=== PATIENT | female | born 2000 | race Two or more races ===

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

== ENCOUNTER 2021-01-23 14:19 | Outpatient (REF) | payer OTHER, SELFPAY | END 2021-01-23 14:20 | disposition home or self-care (01) | LOC: HO.LAB 14:19 | PROVIDERS: Visit Provider Internal Medicine | DX: Z20.822 Contact with and (suspected) exposure to COVID-19 (principal) | CPT/HCPCS: 36415; C9803; U0003; U0005 ==

== ENCOUNTER 2021-03-25 06:01 | Emergency (ER) | payer OTHER, SELFPAY ==
--- NOTE | ~2021-03-25 | CT_ITS ---
EXAMINATION: CT ABDOMEN AND PELVIS WITHOUT CONTRAST CLINICAL INFORMATION: Right-sided abdominal pain and vomiting COMPARISON: None TECHNIQUE: Multidetector volumetric imaging was performed from the superior aspect of the liver through the pubic symphysis. Sagittal and coronal reformatted images were obtained on the technologist's workstation. This CT examination was performed using dose optimization techniques as appropriate, variously including the following: *Automated exposure control *Adjustment of mA and/or kV according to patient size (this includes techniques or standardized protocols for targeted exams where dose is matched to indication/reason for exam; i.e. extremities or head) *Use of iterative reconstruction technique DLP: 1265 mGy-cm FINDINGS: LUNG BASES: The visualized lung bases are unremarkable. LIVER, GALLBLADDER, AND BILIARY TREE: The liver is normal in size, shape, and attenuation. No focal hepatic lesion or biliary ductal dilatation is present. The gallbladder is unremarkable with no evidence of radiopaque gallstones, gallbladder wall thickening, or obvious pericholecystic inflammatory changes. PANCREAS: Unremarkable. SPLEEN: Unremarkable. ADRENAL GLANDS: Unremarkable. KIDNEYS AND URETERS: There are several right upper pole renal stones, largest measuring 2 mm. No hydronephrosis, ureteral dilatation or ureteral stone is seen. The left kidney is normal appearing. BLADDER: Unremarkable. GASTROINTESTINAL TRACT: The gallbladder has been removed. There is diverticulosis of the colon. No evidence of diverticulitis is seen. The small and large bowel is otherwise unremarkable. The stomach is unremarkable. ABDOMINAL WALL: There is a small umbilical hernia containing fat. LYMPH NODES: Normal. VASCULAR: Unremarkable. PELVIC VISCERA: Unremarkable. OSSEOUS STRUCTURES: Unremarkable. CT/CT abdomen pelvis wo con IMPRESSION: Small nonobstructing right renal stones.
[2021-03-25 06:37] VITALS: BP 137/65; PULSE 68; RESP 16; TEMP 36.2; O2SAT 99
[2021-03-25 06:38] VITALS: BMI 56.7
[2021-03-25 06:43] VITALS: BMI 58.6
--- NOTE | 2021-03-25 06:50 | ED_ITS ---
HPI - Abdominal Pain General Chief Complaint: Abdominal Pain Stated Complaint: abdominal pain and vomiting Time Seen by Provider: 03/25/21 06:42 Source: patient Mode of arrival: ambulatory Limitations: no limitations History of Present Illness HPI narrative: 21 years old female came to the emergency department for e valuation of abdominal pain. Abdominal pain started this morning when she woke up from sleep, pain is localized to the right side of the abdomen, pain was described as moderate constant pain 5/10, dull, pain is not radiating, nothing aggravated the pain or made it worse in particular food, nothing makes the pain better, never had this pain in the past, patient had history of appendectomy, symptoms also associated with intermittent feeling dizziness and lightheadedness, hot flashes and blurry vision. Patient reportedly she is not diabetic sugar was checked in the emergency department was 110. Patient declined urinary symptoms no dysuria, no frequency, no fever, no chills. Last bowel movement was yesterday with normal. No vaginal bleeding, no vaginal discharge patient is diagnosed with herpes genitalis and taking medicine for it. Related Data Previous Rx's Medication Instructions Recorded cephalexin [Keflex] 500 mg PO QID #20 cap 09/17/20 cefuroxime axetil 500 mg PO BID #20 tab 03/25/21 Allergies Allergy/AdvReac Type Severity Reaction Status Date / Time No Known Allergies Allergy Unverified 03/25/21 06:47 Review of Systems Review of Systems All other systems are reviewed and are negative Constitutional: Reports as per HPI and Reports no additional constitutional complaints Eyes: Reports as per HPI and Reports no additional eye complaints Reports system reviewed and no additional complaints, except as documented Cardiovascular: Reports as per HPI and Reports no additional cardiovascular complaints Respiratory: Reports as per HPI and Reports no additional respiratory complaints Gastrointestinal: Reports as per HPI and Reports no additional gastrointestinal complaints Genitourinary: Reports no additional female genitourinary complaints Musculoskeletal: Reports no additional musculoskeletal complaints Skin/Breast: Reports system reviewed and no additional complaints, except as docu Psychiatric: Reports no additional psychiatric complaints Endocrine: Reports no additional endocrine complaints Hematologic/Lymphatic: Reports no additional hematologic/lymphatic complaints Allergic/Immunologic: Reports no additional allergic/immunologic complaints Reports system reviewed and no additional complaints, except as documented and Reports Abnormal speech present Physical Exam Vital Signs: Vital Signs: Last Vital Signs Temp 97.1 F 05/17/21 08:11 Pulse 68 03/25/21 08:11 Resp 16 03/25/21 08:11 BP 137/65 03/25/21 08:11 Pulse Ox 99 03/25/21 06:37 Body Mass Index 58.6 Vital signs have been reviewed as appeared to be correct. Blood pressure normal. Heart rate normal. Respiration rate normal. Temperature normal. Oxygen saturation normal. Appearance: Alert. Oriented X3. No acute distress. Head: Normal external exam. Normocephalic. Atraumatic. No Carrizales signs noted. No raccoon eyes noted Eyes: PERRLA. EOMI. Conjunctiva and sclera normal. Eyelids normal. ENT: TM's Normal. Pharynx normal. Uvula midline. Moist mucous membranes. No trismus noted. No drooling noted. No muffled voice noted. Neck: Normal inspection. Neck supple. FROM. No adenopathy. Thyroid Normal. No meningeal signs. No neck mass noted. CVS: Normal heart rate and rhythm. Heart sound normal. No murmurs noted. Pulses normal throughout. Respiratory: No respiratory distress. Painless inspiration. Breath sounds normal. No wheezes/rales/rhonchi noted. Chest nontender. No accessory muscle usage noted or decreased air movement noted. Abdomen: Soft, obese, mild right sided tenderness with no rebound tenderness, no guarding.. Bowel sounds normal in all 4 quadrants. No distention noted. No organomegaly noted. No visible injury noted. Back: No CVA tenderness. Full range of motion noted. Skin: Skin warm and dry. Normal skin color. Normal skin turgor. No rashes/lesions/lacerations noted. Extremities: No lower extremity edema. Extremities exhibit normal range of motion. Extremities nontender. Neuro: Oriented X 3. No motor deficit. No sensory deficit. Reflexes normal. Course Course Course Narrative: Assessment and plan. 21-year-old came in with right upper abdominal pain/right flank pain, patient showed a mild urinary tract infection and a UA, CT is consistent with small kidney stones, patient feels better now, UA showing rbc's 10-14 high power field the above finding are consistent with recently passed stone. Will start the patient on cefuroxime antibiotic for 7 days and patient was instructed to drink plenty of fluids. MDM - Abdominal Pain Lab Data Attestation: I reviewed the patient's lab results. Result diagrams: 03/25/21 07:06 03/25/21 08:06 Labs: Lab Results 03/25/21 03/25/21 03/25/21 Range/Units 06:46 07:06 07:06 WBC 9.7 (4.8-10.8) X10*3/uL RBC 4.82 (4.20-5.50) X10*6/uL Hgb 13.5 (12.0-16.0) g/dl Hct 42.0 (37-47) % MCV 87.1 (80-98) fL MCH 28.0 (27.0-33.0) pg MCHC 32.1 (31.0-35.0) g/dl RDW 13.9 (11.0-16.0) % Plt Count 417 H (160-400) X10*3/uL MPV 10.7 (9.4-12.3) fL Immature Gran % (Auto) 0.4 (0.0-0.4) % Neut % (Auto) 70.2 (45-73) % Lymph % (Auto) 22.6 (20-40) % Josephine % (Auto) 5.7 (2-11) % Eos % (Auto) 0.7 (0-4) % Baso % (Auto) 0.4 (0-2) % Lymph # (Auto) 2.2 (1.2-4.9) X10*3/uL Josephine # (Auto) 0.6 (0.1-1.2) X10*3/uL Eos # (Auto) 0.1 (0.0-0.4) X10*3/uL Baso # (Auto) 0.0 (0.0-0.2) X10*3/uL Abs Immat Gran (auto) 0.04 H (0.00-0.03) X10*3/uL Absolute Neuts (auto) 6.8 (2.0-8.3) X10*3/uL Absolute Nucleated RBC 0.000 (0.0-0.012) X10*3/uL Nucleated RBC % (auto) 0.0 (0.0-0.2) /100WBC Sodium (135-145) mmol/L Potassium (3.3-5.1) mmol/L Chloride (96-108) mmol/L Carbon Dioxide (22-29) mmol/L Anion Gap (12-20) BUN (9-16) mg/dL Creatinine (0.5-1.4) mg/dL Estim Creat Clear Calc Estimated GFR POC Glucose 110 (60-115) mg/dL Random Glucose (60-115) mg/dL Calcium (8.4-10.2) mg/dL Total Bilirubin (0.0-1.0) mg/dL Direct Bilirubin (0.0-0.5) mg/dL AST (5-31) U/L ALT (0-31) U/L Alkaline Phosphatase (39-117) U/L Total Protein (6.5-8.0) g/dL Albumin (3.5-5.0) g/dL Lipase (8-78) U/L Urine Color YELLOW Urine Appearance HAZY Urine pH 6.0 (5.0-8.0) Ur Specific [place] >= 1.030 H (1.005-1.025) Urine Protein TRACE (NEG-TRACE) MG/DL Urine Glucose (UA) NEG (NEG) MG/DL Urine Ketones NEG (NEG) MG/DL Urine Blood 3+ H (NEG) Urine Nitrite NEG (NEG) Ur Leukocyte Esterase 2+ H (NEG) Urine RBC 10-14 H (0) /HPF Urine WBC 15-29 H (0-4) /HPF Ur Squamous Epith Cells 1+ /LPF Urine Bacteria NONE /LPF Urine Mucus 3+ /LPF Urine Test (NEGATIVE) 03/25/21 03/25/21 Range/Units 07:06 08:06 WBC (4.8-10.8) X10*3/uL RBC (4.20-5.50) X10*6/uL Hgb (12.0-16.0) g/dl Hct (37-47) % MCV (80-98) fL MCH (27.0-33.0) pg MCHC (31.0-35.0) g/dl RDW (11.0-16.0) % Plt Count (160-400) X10*3/uL MPV (9.4-12.3) fL Immature Gran % (Auto) (0.0-0.4) % Neut % (Auto) (45-73) % Lymph % (Auto) (20-40) % Josephine % (Auto) (2-11) % Eos % (Auto) (0-4) % Baso % (Auto) (0-2) % Lymph # (Auto) (1.2-4.9) X10*3/uL Josephine # (Auto) (0.1-1.2) X10*3/uL Eos # (Auto) (0.0-0.4) X10*3/uL Baso # (Auto) (0.0-0.2) X10*3/uL Abs Immat Gran (auto) (0.00-0.03) X10*3/uL Absolute Neuts (auto) (2.0-8.3) X10*3/uL Absolute Nucleated RBC (0.0-0.012) X10*3/uL Nucleated RBC % (auto) (0.0-0.2) /100WBC Sodium 142 (135-145) mmol/L Potassium 4.1 (3.3-5.1) mmol/L Chloride 111 H (96-108) mmol/L Carbon Dioxide 21 L (22-29) mmol/L Anion Gap 14 (12-20) BUN 6 L (9-16) mg/dL Creatinine 0.60 (0.5-1.4) mg/dL Estim Creat Clear Calc 185.4 Estimated GFR > 60 POC Glucose (60-115) mg/dL Random Glucose 100 (60-115) mg/dL Calcium 8.9 (8.4-10.2) mg/dL Total Bilirubin 0.5 (0.0-1.0) mg/dL Direct Bilirubin 0.2 (0.0-0.5) mg/dL AST 15 (5-31) U/L ALT 16 (0-31) U/L Alkaline Phosphatase 72 (39-117) U/L Total Protein 7.0 (6.5-8.0) g/dL Albumin 4.2 (3.5-5.0) g/dL Lipase 31 (8-78) U/L Urine Color Urine Appearance Urine pH (5.0-8.0) Ur Specific [place] (1.005-1.025) Urine Protein (NEG-TRACE) MG/DL Urine Glucose (UA) (NEG) MG/DL Urine Ketones (NEG) MG/DL Urine Blood (NEG) Urine Nitrite (NEG) Ur Leukocyte Esterase (NEG) Urine RBC (0) /HPF Urine WBC (0-4) /HPF Ur Squamous Epith Cells /LPF Urine Bacteria /LPF Urine Mucus /LPF Urine Test NEGATIVE (NEGATIVE) Imaging Data CT scan - abdomen: Radiologist's impression: LUNG BASES: The visualized lung bases are unremarkable. LIVER, GALLBLADDER, AND BILIARY TREE: The liver is normal in size, shape, and attenuation. No focal hepatic lesion or biliary ductal dilatation is present. The gallbladder is unremarkable with no evidence of radiopaque gallstones, gallbladder wall thickening, or obvious pericholecystic inflammatory changes. PANCREAS: Unremarkable. SPLEEN: Unremarkable. ADRENAL GLANDS: Unremarkable. KIDNEYS AND URETERS: There are several right upper pole renal stones, largest measuring 2 mm. No hydronephrosis, ureteral dilatation or ureteral stone is seen. The left kidney is normal appearing. BLADDER: Unremarkable. GASTROINTESTINAL TRACT: The gallbladder has been removed. There is diverticulosis of the colon. No evidence of diverticulitis is seen. The small and large bowel is otherwise unremarkable. The stomach is unremarkable. ABDOMINAL WALL: There is a small umbilical hernia containing fat. LYMPH NODES: Normal. VASCULAR: Unremarkable. PELVIC VISCERA: Unremarkable. OSSEOUS STRUCTURES: Unremarkable. Discharge Plan Discharge Clinical Impression: Calculus of kidney Urinary tract infection Qualifiers: Urinary tract infection type: acute cystitis Hematuria presence: without hematuria Qualified Code(s): N30.00 - Acute cystitis without hematuria Patient Disposition: Home, Self-Care Instructions: Urinary Tract Infection in Women (ED) Prescriptions: New cefuroxime axetil 500 mg tablet 500 mg PO BID Qty: 20 RF: 0 No Action cephalexin [Keflex] 500 mg capsule 500 mg PO QID Qty: 20 RF: 0 Referrals: Physician,None [Primary Care Provider] - 2 days REPLACED BY [facility] Past Medical History Medical History Epilepsy Social History Social History Alcohol intake: never Smoking Status: Never smoker Advance Directives: No Advance Directives Information Provided: No Patient : Yes
[2021-03-25 06:51] LABS: Glucose, Whole Blood 110 mg/dL (60-115)
[2021-03-25] MEDS: Morphine Sulfate 2 MG/ML CARTRIDGE IVPUSH (07:11)
[2021-03-25] MEDS: ondansetron HCL 4 MG/2 ML VIAL IVPUSH (07:11)
[2021-03-25] MEDS: Ketorolac Tromethamine 15 MG/ML VIAL IV (07:11)
[2021-03-25] MEDS: 0.9 % Sodium Chloride 1,000 ML 999 ML IVCONT (07:11)
[2021-03-25 07:13] LABS: MANUAL DIFF FLAG NO
[2021-03-25 07:17] LABS: Basophils Percent Auto 0.4 % (0-2); Eosinophils Absolute Auto 0.1 X10*3/uL (0.0-0.4); Eosinophils Percent Auto 0.7 % (0-4); Hemoglobin 13.5 g/dl (12.0-16.0); Imm Gran Abs Auto 0.04 X10*3/uL (0.00-0.03); Imm Gran Pct Auto 0.4 % (0.0-0.4); Lymphocytes Absolute Auto 2.2 X10*3/uL (1.2-4.9); Lymphocytes Percent Auto 22.6 % (20-40); Mean Corpuscular HGB Conc 32.1 g/dl (31.0-35.0); Mean Corpuscular Volume 87.1 fL (80-98); Mean Platelet Volume 10.7 fL (9.4-12.3); Monocytes Absolute Auto 0.6 X10*3/uL (0.1-1.2); Monocytes Percent Auto 5.7 % (2-11); Neutrophils Absolute Auto 6.8 X10*3/uL (2.0-8.3); Neutrophils Percent Auto 70.2 % (45-73); Platelet Count 417 X10*3/uL (160-400); Red Blood Count 4.82 X10*6/uL (4.20-5.50); Red Cell Distribution Width 13.9 % (11.0-16.0); White Blood Count 9.7 X10*3/uL (4.8-10.8)
[2021-03-25 07:20] LABS: Glucose Urine UA NEG (NEG); Leukocyte Esterase Urine 2+ (NEG); Nitrite Urine NEG (NEG); Specific Gravity - Urine >= 1.030 (1.005-1.025); UACC Culture Trigger YES; UPreg QC Valid YES; Urine Blood 3+ (NEG); Urine Ketones NEG (NEG); Urine Pregnancy NEGATIVE (NEGATIVE); Urine Protein TRACE MG/DL (NEG-TRACE)
[2021-03-25 07:23] LABS: Appearance Urine HAZY; Color Urine YELLOW
[2021-03-25 07:35] LABS: Mucus Urine 3+ /LPF; Squamous Epithelial Cell Urine 1+ /LPF
[2021-03-25 08:11] VITALS: BP 137/65; PULSE 68; RESP 16; TEMP 36.2
[2021-03-25 08:46] LABS: Alanine Aminotransferase 16 U/L (0-31); Albumin Level 4.2 g/dL (3.5-5.0); Alkaline Phosphatase 72 U/L (39-117); Anion Gap 14 (12-20); Aspartate Amino Transferase 15 U/L (5-31); Bilirubin Direct 0.2 mg/dL (0.0-0.5); Bilirubin Total 0.5 mg/dL (0.0-1.0); Blood Urea Nitrogen 6 mg/dL (9-16); Calcium 8.9 mg/dL (8.4-10.2); Carbon Dioxide 21 mmol/L (22-29); Chloride 111 mmol/L (96-108); Creatinine Clr Calc Pharmacy 185.4; Estimated Glomerular Filt Rate > 60; Glucose Random 100 mg/dL (60-115); Lipase 31 U/L (8-78); Potassium 4.1 mmol/L (3.3-5.1); Sodium 142 mmol/L (135-145)
== END 2021-03-25 10:06 | disposition home or self-care (01) ==
PROVIDERS: Emergency Provider Emergency Medicine
DX: N30.00 Acute cystitis without hematuria (principal); N20.0 Calculus of kidney; R10.11 Right upper quadrant pain; K42.9 Umbilical hernia without obstruction or gangrene; K57.30 Diverticulosis of large intestine without perforation or abscess without bleeding; Z90.49 Acquired absence of other specified parts of digestive tract
CPT/HCPCS: 36415; 74176; 80048; 80076; 81001; 81003; 81025; 82947; 83690; 85025; 87086; 96361; 96374; 96375; 99284; J1885; J2270; J2405

== ENCOUNTER 2021-04-07 09:04 | Emergency (ER) | payer OTHER, SELFPAY ==
[2021-04-07 09:52] VITALS: BP 132/86; PULSE 74; RESP 16; TEMP 36.6; O2SAT 99; BMI 58.6
[2021-04-07 10:16] LABS: Glucose Urine UA NEG (NEG); Leukocyte Esterase Urine 2+ (NEG); Nitrite Urine NEG (NEG); Specific Gravity - Urine 1.015 (1.005-1.025); UACC Culture Trigger YES; Urine Blood 3+ (NEG); Urine Ketones NEG (NEG); Urine Protein TRACE MG/DL (NEG-TRACE)
[2021-04-07 10:17] LABS: Appearance Urine CLOUDY; Color Urine YELLOW
[2021-04-07 10:19] LABS: UPreg QC Valid YES; Urine Pregnancy NEGATIVE (NEGATIVE)
[2021-04-07 10:28] LABS: Amorphous Sediment Urine 1+ /LPF; Bacteria Urine 2+ /LPF; Squamous Epithelial Cell Urine 2+ /LPF
[2021-04-07] MEDS: cefTRIAXone sodium 500 MG, Lidocaine HCl 1 % MPF 1 ML IM (11:45)
--- NOTE | 2021-04-07 11:45 | ED.FEMALEGU ---
HPI - Female Genitourinary General Chief complaint: Urogenital-Female Stated complaint: lower back and abd pain prev kidney infection Time Seen by Provider: 04/07/21 11:09 Source: patient Mode of arrival: ambulatory Limitations: no limitations History of Present Illness HPI Narrative: 21-year-old female who presents emergency department for evaluation of lower abdominal pain. The patient states that she has been having pain across her lower abdomen since 03/25/2021. She states the pain is a constant pressure-like pain which waxes and wanes in intensity. She states the pain is 9/10 at its worst. She has noted a thick vaginal discharge which is new. She has had chills but no fever. Denied nausea, vomiting, frequency, urgency or dysuria. She has noted a vaginal discharge. The patient was evaluated in the emergency department on 03/25/2021 for similar symptoms. She had a CT scan which revealed kidney stones but no obstructing stone. Her urinalysis revealed 10-14 RBCs and 15-29 WBCs with 2+ bacteria. She was treated with cefuroxime for possible urinary tract infection. Her urine culture came back mixed aby. The patient states she is sexually active with 1 sexual partner. Related Data Previous Rx's Medication Instructions Recorded cephalexin [Keflex] 500 mg PO QID #20 cap 09/17/20 cefuroxime axetil 500 mg PO BID #20 tab 03/25/21 doxycycline hyclate 100 mg PO Q12H 10 Days #20 tab 04/07/21 metronidazole [Flagyl] 500 mg PO BID 10 Days #20 tab 04/07/21 Allergies Allergy/AdvReac Type Severity Reaction Status Date / Time No Known Allergies Allergy Unverified 03/25/21 06:47 Review of Systems Review of Systems: Yes all other systems are reviewed and are negative [facility] Past Medical History [facility] Narrative: Past medical history: intermittent hypertension not treated with medication, seizure disorder, irregular heart rate and migraines. Surgical history: Appendectomy. Social history: The patient denies tobacco use, she states she drinks alcohol occasionally, she denies drug use. Medical History Epilepsy Social History Social History Alcohol intake: never Advance Directives: Yes Advance Directives Information Provided: Yes Advance Directives on File: No Physical Exam Vital Signs: Vital Signs: Last Vital Signs Temp 97.8 F 04/07/21 09:52 Pulse 74 04/07/21 09:52 Resp 16 04/07/21 09:52 BP 132/86 04/07/21 09:52 Pulse Ox 99 04/07/21 09:52 Body Mass Index 58.6 Const: General: cooperative and healthy appearing Orientation/consciousness: oriented to person and oriented to place Limitations: no limitations HENMT: Head: Yes normal to inspection, Yes normocephalic and Yes atraumatic Ears: external ears normal General nose exam: Normal external nose present Face and sinus: Yes normal facial exam Mouth: Normal oral and palatal mucosa present Throat: Yes posterior oropharynx normal Eyes: Periorbital: periorbital findings normal Eyelids: Yes eyelids normal Conjunctivae: conjunctivae normal Sclerae: sclerae normal Corneas: corneas normal Pupils: Equal, round and reactive pupils present Direct Ophthalmoscopy: normal light reflex Neck: Neck: Yes full ROM, Yes no lymphadenopathy, Yes no meningeal signs, Yes trachea midline and Yes supple Chest: Chest palpation & inspection: normal inspection of the chest and normal palpation of entire chest wall Resp: Effort & Inspection: normal respiratory effort and able to speak in complete sentences Auscultation: clear to auscultation bilaterally Cardio: Rate: regular rate Rhythm: regular rhythm Heart sounds: S1 normal heart sound present, S2 normal heart sound present and no murmurs GI: Inspection: Yes normal to inspection Palpation (GI): Soft to palpation, Tenderness to palpation present (GI) suprapubicly (Moderate), no guarding, not rigid and No hepatosplenomegaly present : General: Yes CVA tenderness (Bilateral, left greater than right) Back/Spine/Pelvis: Back: CVA tenderness (Bilateral, left greater than right) Cervical Spine: normal cervical lordosis Thoracic/Lumbar Spine: thoracic and lumbar spine normal to inspection Skin: Lesions: no lesions Rashes: no rashes Wounds: no wounds Neuro: General: oriented to person, oriented to place and no meningeal signs Cranial nerves: Yes CN's II-XII intact bilaterally and Yes Equal, round and reactive pupils present Cognition (Neuro): normal cognition Motor exam (neuro): 5/5 motor strength present throughout Extrem: General: Yes normal to inspection and Yes full ROM Psych: Appearance: well kempt Mental Status: mental status grossly normal Speech and movement: Normal speech and movement present Affect: normal affect Attitude: cooperative Thought process: Normal thought process present Thought content: Normal thought content present Course Course Course Narrative: 21-year-old female who presents emergency department for evaluation of abdominal pain since 03/25/2021. She was evaluated in the emergency department at that time and treated with cefuroxime for urinary tract infection with no improvement of her symptoms. Patient's urine culture from that visit grew mixed aby. The patient has noted a vaginal discharge. Physical examination did reveal lower abdominal tenderness and CVA tenderness. Laboratory evaluation revealed a normal CBC and CMP. Lipase was not elevated. Urinalysis was similar to the previous urinalysis with 3+ blood, 2+ leukocyte esterase. Microscopic revealed 10-14 red blood cells 15-29 white blood cells, 2+ squamous cells, 2+ bacteria. Urine test was negative. Given her negative urine culture the previous visit, I suspect that she has felt inflammatory disease as the cause for symptoms. I did discuss pelvic exam with patient and she deferred the pelvic exam at this time, I will check a gonorrhea and chlamydia from the patient's urine. Patient was given ceftriaxone with lidocaine 500 mg IM. She will be treated for PID with doxycycline 100 mg twice a day for 10 days and Flagyl 500 mg twice a day for 10 days. She was advised to follow-up with her packer dried beef in 10 days to make sure that her symptoms are improved. I did tell her that she needs to check her gonorrhea and chlamydia results and if these tests are positive then her sexual partner needs to be treated. MDM - Female Genitourinary Lab Data Labs: Lab Results 04/07/21 04/07/21 Range/Units 10:06 10:06 Urine Color YELLOW Urine Appearance CLOUDY Urine pH 7.0 (5.0-8.0) Ur Specific [place] 1.015 (1.005-1.025) Urine Protein TRACE (NEG-TRACE) MG/DL Urine Glucose (UA) NEG (NEG) MG/DL Urine Ketones NEG (NEG) MG/DL Urine Blood 3+ H (NEG) Urine Nitrite NEG (NEG) Ur Leukocyte Esterase 2+ H (NEG) Urine RBC 10-14 H (0) /HPF Urine WBC 15-29 H (0-4) /HPF Ur Squamous Epith Cells 2+ /LPF Amorphous Sediment 1+ /LPF Urine Bacteria 2+ /LPF Urine Test NEGATIVE (NEGATIVE) Discharge Plan Discharge Clinical Impression: Acute pelvic inflammatory disease Patient Disposition: Home, Self-Care Instructions: Pelvic Inflammatory Disease (ED) Additional Instructions: Your presentation and physical findings are consistent with pelvic inflammatory disease (PID). Approximately 30% of the time, pelvic inflammatory disease is caused by sexually transmitted diseases such as Trichomonas, gonorrhea or chlamydia. Approximately 70% of the time, pelvic inflammatory disease is caused by abnormal bacteria (anaerobic bacteria) in your vagina that can cause an infection You received ceftriaxone 500 mg intramuscularly here in the emergency department Take doxycycline 100 mg, 1 pill twice a day for 10 days. Take metronidazole 500 mg, 1 pill twice a day for 10 days. These 3 antibiotics treat sexually transmitted diseases such as gonorrhea, chlamydia and Trichomonas as well as anaerobic bacteria that can cause pelvic inflammatory disease. Take ibuprofen 200 mg pills, 3 pills every 6 hours as needed for pain. Take Tylenol (acetaminophen) 500 mg pills, 2 pills every 4 to 6 hours as needed for pain. Follow-up with your gynecology in 7-10 days. If your packer dried beef cannot see you, [facility] The doctor that follows up will need to review the following results with you: Gonorrhea and chlamydia(urine testing) Please return to the emergency department if your symptoms get worse or if you develop any symptoms that are concerning to you. Prescriptions: New doxycycline hyclate 100 mg tablet 100 mg PO Q12H 10 Days Qty: 20 RF: 0 metronidazole [Flagyl] 500 mg tablet 500 mg PO BID 10 Days Qty: 20 RF: 0 No Action cefuroxime axetil 500 mg tablet 500 mg PO BID Qty: 20 RF: 0 cephalexin [Keflex] 500 mg capsule 500 mg PO QID Qty: 20 RF: 0
[2021-04-07 14:47] LABS: CT PCR DETECTED (Not Detect.); NG PCR DETECTED (Not Detect.)
== END 2021-04-07 12:24 | disposition home or self-care (01) ==
PROVIDERS: Emergency Provider Emergency Medicine Emergency Medical Services
DX: A54.24 Gonococcal female pelvic inflammatory disease (principal); A56.11 Chlamydial female pelvic inflammatory disease; R10.30 Lower abdominal pain, unspecified; N20.0 Calculus of kidney
CPT/HCPCS: 81001; 81003; 81025; 87086; 87147; 87491; 87591; 96372; 99282; 99284; J0696

== ENCOUNTER 2021-05-16 02:12 | Emergency (ER) | payer OTHER, SELFPAY ==
--- NOTE | ~2021-05-16 | CT_ITS ---
EXAMINATION: CT ABDOMEN AND PELVIS WITHOUT CONTRAST CLINICAL INFORMATION: Persistent right flank pain COMPARISON: 03/25/2021 TECHNIQUE: Multidetector volumetric imaging was performed from the superior aspect of the liver through the pubic symphysis. Sagittal and coronal reformatted images were obtained on the technologist's workstation. This CT examination was performed using dose optimization techniques as appropriate, variously including the following: *Automated exposure control *Adjustment of mA and/or kV according to patient size (this includes techniques or standardized protocols for targeted exams where dose is matched to indication/reason for exam; i.e. extremities or head) *Use of iterative reconstruction technique DLP: 1165 mGy-cm FINDINGS: LUNG BASES: The visualized lung bases are unremarkable. LIVER, GALLBLADDER, AND BILIARY TREE: The liver is normal in size, shape, and attenuation. No focal hepatic lesion or biliary ductal dilatation is present. The gallbladder is unremarkable with no evidence of radiopaque gallstones, gallbladder wall thickening, or obvious pericholecystic inflammatory changes. PANCREAS: Unremarkable. SPLEEN: Unremarkable. ADRENAL GLANDS: Unremarkable. KIDNEYS AND URETERS: The kidneys are normal in size, shape, and attenuation. Mild right hydroureteronephrosis. 0.4 cm calculus in the mid ureter at the level of L4. The more distal ureter is decompressed. 0.2 cm right upper pole renal calculus is 12 cm from the posterior axillary line. BLADDER: Unremarkable. GASTROINTESTINAL TRACT: The small and large bowel are unremarkable. The appendix is likely absent. ABDOMINAL WALL: No significant hernia is appreciated. LYMPH NODES: Normal. VASCULAR: Unremarkable. PELVIC VISCERA: The uterus and adnexa are unremarkable. OSSEOUS STRUCTURES: Unremarkable. CT/CT abdomen pelvis wo con IMPRESSION: Mild right hydroureteronephrosis with a 0.4 cm mid ureteral calculus.
[2021-05-16 02:32] VITALS: BP 140/56; PULSE 78; RESP 20; TEMP 35.9; O2SAT 100; BMI 56.5
--- NOTE | 2021-05-16 02:43 | ED.ABDPAIN ---
HPI - Abdominal Pain General Chief Complaint: Abdominal Pain Stated Complaint: lower back pain Time Seen by Provider: 05/16/21 02:40 Source: patient Mode of arrival: ambulatory Limitations: no limitations History of Present Illness HPI narrative: patient was significant past medical history been complaining of pain off and on on the right flank area for last [address] scan done showed normal obstructive right kidney stone for last 2 hours patient noticed pain is getting worse now radiating to the front no urinary symptoms no fever or chills, in ED patient vomited 1 time . Related Data Previous Rx's Medication Instructions Recorded cephalexin [Keflex] 500 mg PO QID #20 cap 09/17/20 cefuroxime axetil 500 mg PO BID #20 tab 03/25/21 doxycycline hyclate 100 mg PO Q12H 10 Days #20 tab 04/07/21 metronidazole [Flagyl] 500 mg PO BID 10 Days #20 tab 04/07/21 Allergies Allergy/AdvReac Type Severity Reaction Status Date / Time No Known Allergies Allergy Unverified 03/25/21 06:47 Review of Systems Review of Systems Constitutional : No Weight loss, No Fever, No Chills ENT/Mouth : No sore throat, No Rhinorrhea Eyes: No Eye Pain, No Swelling Cardiovascular : No Chest Pain, no palpitations Respiratory : No Cough, No Sputum, no shortness of breath Gastrointestinal : +Nausea, +Vomiting, No Diarrhea, No abdominal Pain, no black stools Genitourinary : No Dysuria, No Urinary Frequency Musculoskeletal : No joint pain, No Myalgias, No Joint Swelling Skin : No Skin Lesions, No rash Neuro : No Weakness, No Numbness, No Dizziness, No Headache Psych : No Anxiety/Panic, No Depression Heme/Lymph: No Bruising, No Lymphadenopathy Endocrine : No Polyuria, No Polydipsia All other systems reviewed and are negative Physical Exam Vital Signs: Vital Signs: Last Vital Signs Temp 96.6 F L 05/16/21 02:32 Pulse 78 05/16/21 02:32 Resp 18 05/16/21 05:23 BP 140/56 H 05/16/21 02:32 Pulse Ox 100 05/16/21 02:32 Body Mass Index 56.5 Appearance: Alert. Oriented X3. moderate distress. obese Eyes: PERRLA, No Nystagmus ENT: Pharynx normal. Oral Mucosa moist Neck: Normal inspection. Neck supple. CVS: Normal heart rate and rhythm. Pulses normal. Respiratory: No respiratory distress. Equal air entry bilateral, no wheezing/rales/rhonchi Abdomen: Soft and nontender. Bowel sounds are present, no mass palpable, right CVA tenderness+ back: diffuse tenderness right flank area no focal spinal tenderness Skin: Skin warm and dry. Normal skin color. Normal skin turgor. Extremities: No lower extremity edema. No calf tenderness Neuro: Oriented X 3. No motor deficit. No sensory deficit. MDM - Abdominal Pain MDM Narrative Medical decision making narrative: patient continued to have pain in right flank area vomited 1 time in the ED CT scan done which showed 0.4 cm stone in the upper right ureteric area with mild hydronephrosis. Patient responded to IV pain medication advised follow-up with urologist Medical Records Attestation: I reviewed the patient's medical records. Lab Data Attestation: I reviewed the patient's lab results. Result diagrams: 05/16/21 03:24 05/16/21 03:24 Labs: Lab Results 05/16/21 05/16/21 05/16/21 Range/Units 03:01 03:24 03:24 WBC 11.1 H (4.8-10.8) X10*3/uL RBC 4.76 (4.20-5.50) X10*6/uL Hgb 13.4 (12.0-16.0) g/dl Hct 41.0 (37-47) % MCV 86.1 (80-98) fL MCH 28.2 (27.0-33.0) pg MCHC 32.7 (31.0-35.0) g/dl RDW 13.8 (11.0-16.0) % Plt Count 411 H (160-400) X10*3/uL MPV 10.4 (9.4-12.3) fL Immature Gran % (Auto) 0.4 (0.0-0.4) % Neut % (Auto) 54.1 (45-73) % Lymph % (Auto) 36.8 (20-40) % [place] % (Auto) 7.4 (2-11) % Eos % (Auto) 0.9 (0-4) % Baso % (Auto) 0.4 (0-2) % Lymph # (Auto) 4.1 (1.2-4.9) X10*3/uL [place] # (Auto) 0.8 (0.1-1.2) X10*3/uL Eos # (Auto) 0.1 (0.0-0.4) X10*3/uL Baso # (Auto) 0.1 (0.0-0.2) X10*3/uL Abs Immat Gran (auto) 0.05 H (0.00-0.03) X10*3/uL Absolute Neuts (auto) 6.0 (2.0-8.3) X10*3/uL Absolute Nucleated RBC 0.000 (0.0-0.012) X10*3/uL Nucleated RBC % (auto) 0.0 (0.0-0.2) /100WBC Sodium 142 (135-145) mmol/L Potassium 3.8 (3.3-5.1) mmol/L Chloride 107 (96-108) mmol/L Carbon Dioxide 23 (22-29) mmol/L Anion Gap 16 (12-20) BUN 12 D (9-16) mg/dL Creatinine 0.67 (0.5-1.4) mg/dL Estim Creat Clear Calc 162.2 Estimated GFR > 60 Random Glucose 115 (60-115) mg/dL Calcium 9.6 D (8.4-10.2) mg/dL Total Bilirubin 0.4 (0.0-1.0) mg/dL Direct Bilirubin 0.2 (0.0-0.5) mg/dL AST 15 (5-31) U/L ALT 12 (0-31) U/L Alkaline Phosphatase 64 (39-117) U/L Total Protein 7.1 (6.5-8.0) g/dL Albumin 4.3 (3.5-5.0) g/dL Lipase 33 (8-78) U/L Urine Color YELLOW Urine Appearance HAZY Urine pH 6.0 (5.0-8.0) Ur Specific [place] 1.025 (1.005-1.025) Urine Protein NEG (NEG-TRACE) MG/DL Urine Glucose (UA) NEG (NEG) MG/DL Urine Ketones NEG (NEG) MG/DL Urine Blood 2+ H (NEG) Urine Nitrite NEG (NEG) Ur Leukocyte Esterase 1+ H (NEG) Urine RBC 5-9 H (0) /HPF Urine WBC 1-4 (0-4) /HPF Ur Squamous Epith Cells 3+ /LPF Amorphous Sediment 2+ /LPF Urine Bacteria 1+ /LPF Urine Mucus 2+ /LPF Imaging Data CT scan - abdomen: Attestation: I personally reviewed and interpreted this imaging study as follows: Radiologist's impression: Ordering Physician: Flaco Colin MD Date of Service: 05/16/21 Procedure(s): CT abdomen pelvis wo con Accession Number(s): [id number] cc: Flaco Colin MD~ EXAMINATION: CT ABDOMEN AND PELVIS WITHOUT CONTRAST CLINICAL INFORMATION: Persistent right flank pain COMPARISON: 03/25/2021 TECHNIQUE: Multidetector volumetric imaging was performed from the superior aspect of the liver through the pubic symphysis. Sagittal and coronal reformatted images were obtained on the technologist's workstation. This CT examination was performed using dose optimization techniques as appropriate, variously including the following: *Automated exposure control *Adjustment of mA and/or kV according to patient size (this includes techniques or standardized protocols for targeted exams where dose is matched to indication/reason for exam; i.e. extremities or head) *Use of iterative reconstruction technique DLP: 1165 mGy-cm FINDINGS: LUNG BASES: The visualized lung bases are unremarkable. LIVER, GALLBLADDER, AND BILIARY TREE: The liver is normal in size, shape, and attenuation. No focal hepatic lesion or biliary ductal dilatation is present. The gallbladder is unremarkable with no evidence of radiopaque gallstones, gallbladder wall thickening, or obvious pericholecystic inflammatory changes. PANCREAS: Unremarkable. SPLEEN: Unremarkable. ADRENAL GLANDS: Unremarkable. KIDNEYS AND URETERS: The kidneys are normal in size, shape, and attenuation. Mild right hydroureteronephrosis. 0.4 cm calculus in the mid ureter at the level of L4. The more distal ureter is decompressed. 0.2 cm right upper pole renal calculus is 12 cm from the posterior axillary line. BLADDER: Unremarkable. GASTROINTESTINAL TRACT: The small and large bowel are unremarkable. The appendix is likely absent. ABDOMINAL WALL: No significant hernia is appreciated. LYMPH NODES: Normal. VASCULAR: Unremarkable. PELVIC VISCERA: The uterus and adnexa are unremarkable. OSSEOUS STRUCTURES: Unremarkable. CT/CT abdomen pelvis wo con IMPRESSION: Mild right hydroureteronephrosis with a 0.4 cm mid ureteral calculus. Discharge Plan Discharge Prescriptions: No Action cefuroxime axetil 500 mg tablet 500 mg PO BID Qty: 20 RF: 0 cephalexin [Keflex] 500 mg capsule 500 mg PO QID Qty: 20 RF: 0 doxycycline hyclate 100 mg tablet 100 mg PO Q12H 10 Days Qty: 20 RF: 0 metronidazole [Flagyl] 500 mg tablet 500 mg PO BID 10 Days Qty: 20 RF: 0 PMFSH Past Medical History Medical History Epilepsy Social History Social History Alcohol intake: never Advance Directives: No Advance Directives Information Provided: No Patient : No
[2021-05-16] MEDS: oxyCODONE HCl Immed Release 5 MG TABLET 10 MG PO (02:52)
[2021-05-16] MEDS: LORazepam 1 MG TABLET 2 MG PO (02:52)
[2021-05-16 03:06] LABS: Glucose Urine UA NEG (NEG); Leukocyte Esterase Urine 1+ (NEG); Nitrite Urine NEG (NEG); Specific Gravity - Urine 1.025 (1.005-1.025); UACC Culture Trigger YES; Urine Blood 2+ (NEG); Urine Ketones NEG (NEG); Urine Protein NEG (NEG-TRACE)
[2021-05-16 03:07] LABS: Appearance Urine HAZY; Color Urine YELLOW
[2021-05-16 03:13] LABS: Amorphous Sediment Urine 2+ /LPF; Bacteria Urine 1+ /LPF; Mucus Urine 2+ /LPF; Squamous Epithelial Cell Urine 3+ /LPF
[2021-05-16 03:29] LABS: Basophils Absolute Auto 0.1 X10*3/uL (0.0-0.2); Basophils Percent Auto 0.4 % (0-2); Eosinophils Absolute Auto 0.1 X10*3/uL (0.0-0.4); Eosinophils Percent Auto 0.9 % (0-4); Hemoglobin 13.4 g/dl (12.0-16.0); Imm Gran Abs Auto 0.05 X10*3/uL (0.00-0.03); Imm Gran Pct Auto 0.4 % (0.0-0.4); Lymphocytes Absolute Auto 4.1 X10*3/uL (1.2-4.9); Lymphocytes Percent Auto 36.8 % (20-40); MANUAL DIFF FLAG NO; Mean Corpuscular HGB Conc 32.7 g/dl (31.0-35.0); Mean Corpuscular Hemoglobin 28.2 pg (27.0-33.0); Mean Corpuscular Volume 86.1 fL (80-98); Mean Platelet Volume 10.4 fL (9.4-12.3); Monocytes Absolute Auto 0.8 X10*3/uL (0.1-1.2); Monocytes Percent Auto 7.4 % (2-11); Neutrophils Percent Auto 54.1 % (45-73); Platelet Count 411 X10*3/uL (160-400); Red Blood Count 4.76 X10*6/uL (4.20-5.50); Red Cell Distribution Width 13.8 % (11.0-16.0); White Blood Count 11.1 X10*3/uL (4.8-10.8)
[2021-05-16] MEDS: Ketorolac Tromethamine 30 MG/ML VIAL IVPUSH (03:30)
[2021-05-16] MEDS: ondansetron HCL 4 MG/2 ML VIAL IVPUSH (03:32)
[2021-05-16] MEDS: LORazepam 2 MG/ML VIAL 1 MG IVPUSH (03:33)
[2021-05-16] MEDS: 0.9 % Sodium Chloride 1,000 ML 999 ML IVCONT (03:35)
[2021-05-16 03:59] LABS: Alanine Aminotransferase 12 U/L (0-31); Albumin Level 4.3 g/dL (3.5-5.0); Alkaline Phosphatase 64 U/L (39-117); Anion Gap 16 (12-20); Aspartate Amino Transferase 15 U/L (5-31); Bilirubin Direct 0.2 mg/dL (0.0-0.5); Bilirubin Total 0.4 mg/dL (0.0-1.0); Blood Urea Nitrogen 12 mg/dL (9-16); Calcium 9.6 mg/dL (8.4-10.2); Carbon Dioxide 23 mmol/L (22-29); Chloride 107 mmol/L (96-108); Creatinine Clr Calc Pharmacy 162.2; Estimated Glomerular Filt Rate > 60; Glucose Random 115 mg/dL (60-115); Lipase 33 U/L (8-78); Potassium 3.8 mmol/L (3.3-5.1); Sodium 142 mmol/L (135-145); Total Protein 7.1 g/dL (6.5-8.0)
[2021-05-16 05:23] VITALS: RESP 18
[2021-05-16] MEDS: Morphine Sulfate 4 MG/ML CARTRIDGE IVPUSH (05:23)
[2021-05-16] MEDS: Tamsulosin HCL 0.4 MG CAPSULE 0.8 MG PO (05:24)
== END 2021-05-16 06:40 | disposition home or self-care (01) ==
PROVIDERS: Emergency Provider Internal Medicine
DX: N13.2 Hydronephrosis with renal and ureteral calculous obstruction (principal)
CPT/HCPCS: 36415; 74176; 80048; 80076; 81001; 81003; 83690; 85025; 87086; 96361; 96374; 96375; 99283; 99284; J1885; J2060; J2270; J2405

== ENCOUNTER → 2021-06-04 12:43 | Outpatient (BNVA) | payer OTHER, SELFPAY | PROVIDERS: Visit Provider Urology | DX: N20.0 Calculus of kidney (principal) | CPT/HCPCS: 99202 ==

== ENCOUNTER 2021-11-24 10:39 | Outpatient (REF) | payer OTHER, SELFPAY ==
[2021-11-24 11:13] LABS: COVID-19 Test Negative (Negative); IDNOW Serial# 55D5AD1C
== END 2021-11-24 10:40 | disposition home or self-care (01) ==
LOC: HO.LAB 10:39
PROVIDERS: Visit Provider Internal Medicine
DX: Z20.822 Contact with and (suspected) exposure to COVID-19 (principal)
CPT/HCPCS: 87635; C9803

== ENCOUNTER 2021-12-20 09:37 | Outpatient (REF) | payer OTHER, SELFPAY ==
--- NOTE | ~2021-12-20 | US_ITS ---
EXAMINATION: US RETROPERITONEAL LIMITED (RENAL ONLY) CLINICAL INFORMATION: Calculus of kidney. COMPARISON: CT abdomen and pelvis 05/16/2021. TECHNIQUE: Real-time imaging of the kidneys. FINDINGS: RIGHT KIDNEY: 11.2 x 5.5 x 5.3 cm (SAG x AP x TRV). The kidney is normal in size, contour, and echogenicity. Renal cortical thickness is normal. No calculi or focal parenchymal lesions. No hydronephrosis. LEFT KIDNEY: 12.4 x 5.3 x 5.2 cm (SAG x AP x TRV). The kidney is normal in size, contour, and echogenicity. Renal cortical thickness is normal. No calculi or focal parenchymal lesions. No hydronephrosis. US/US renal BI IMPRESSION: No stone seen by ultrasound.
== END 2021-12-20 09:38 | disposition home or self-care (01) ==
LOC: HO.HMGCX 09:37
PROVIDERS: Visit Provider Urology
DX: N20.0 Calculus of kidney (principal)
CPT/HCPCS: 76775

== ENCOUNTER 2022-02-06 10:04 | Outpatient (REF) | payer OTHER, SELFPAY ==
[2022-02-06 13:16] LABS: MANUAL DIFF FLAG NO
[2022-02-06 13:36] LABS: Basophils Percent Auto 0.4 % (0-2); Eosinophils Absolute Auto 0.2 X10*3/uL (0.0-0.4); Eosinophils Percent Auto 1.5 % (0-4); Hematocrit 40.6 % (37.0-47.0); Hemoglobin 13.1 g/dl (12.0-16.0); Imm Gran Abs Auto 0.04 X10*3/uL (0.00-0.03); Imm Gran Pct Auto 0.4 % (0.0-0.4); Lymphocytes Absolute Auto 3.2 X10*3/uL (1.2-4.9); Lymphocytes Percent Auto 31.4 % (20-40); Mean Corpuscular HGB Conc 32.3 g/dl (31.0-35.0); Mean Corpuscular Volume 86.8 fL (80.0-98.0); Mean Platelet Volume 10.5 fL (9.4-12.3); Monocytes Absolute Auto 0.6 X10*3/uL (0.1-1.2); Monocytes Percent Auto 6.2 % (2-11); Neutrophils Absolute Auto 6.2 x10*3/uL (2.0-8.3); Neutrophils Percent Auto 60.1 % (45-73); Platelet Count 436 X10*3/uL (160-400); Red Blood Count 4.68 X10*6/uL (4.20-5.50); Red Cell Distribution Width 13.6 % (11.0-16.0); White Blood Count 10.3 X10*3/uL (4.8-10.8)
[2022-02-06 14:07] LABS: Alanine Aminotransferase 27 U/L (0-31); Albumin Level 4.2 g/dL (3.5-5.0); Alkaline Phosphatase 70 U/L (39-117); Anion Gap 12 (12-20); Aspartate Amino Transferase 24 U/L (5-31); Bilirubin Total 0.4 mg/dL (0.0-1.0); Blood Urea Nitrogen 8 mg/dL (9-16); Calcium 9.4 mg/dL (8.4-10.2); Carbon Dioxide 26 mmol/L (22-29); Chloride 105 mmol/L (96-108); Cholesterol 201 mg/dL; Estimated Glomerular Filt Rate > 60; Glucose Fasting 77 mg/dL (60-99); HDL Cholesterol 38 mg/dL; LDL Cholesterol Calculated 151 mg/dl; Potassium 4.1 mmol/L (3.3-5.1); Sodium 139 mmol/L (135-145); Total Protein 7.2 g/dL (6.5-8.0); Triglycerides 64 mg/dL
[2022-02-06 14:28] LABS: TSH reflex Free T4 1.58 uIU/mL (0.32-4.0)
== END 2022-02-06 10:05 | disposition home or self-care (01) ==
LOC: HO.LAB 10:04
PROVIDERS: PCP Nurse Practitioner Family; Visit Provider Nurse Practitioner Family
DX: F32.A Depression, unspecified (principal); F41.9 Anxiety disorder, unspecified; I10 Essential (primary) hypertension; E78.00 Pure hypercholesterolemia, unspecified; Z76.89 Persons encountering health services in other specified circumstances
CPT/HCPCS: 36415; 80053; 80061; 84443; 85025

== ENCOUNTER 2022-05-16 10:10 | Emergency (ER) | payer OTHER, SELFPAY ==
--- NOTE | ~2022-05-16 | XR_ITS ---
EXAMINATION: XR FOOT, RIGHT CLINICAL INFORMATION: Foreign body COMPARISON: None TECHNIQUE: AP, lateral, and oblique views of the right foot. FINDINGS: The bones and soft tissues are normal. No fracture. Alignment is anatomic. Joint spaces are maintained. No radiopaque foreign body is identified. XR/XR foot RT min 3V IMPRESSION: Normal right foot.
[2022-05-16 10:26] VITALS: BP 111/78; PULSE 89; RESP 18; TEMP 37; O2SAT 98; BMI 56.5
--- NOTE | 2022-05-16 11:53 | ED.SKABFB ---
HPI - Skin/Abscess/Foreign Bdy General Chief complaint: Skin/Abscess/Foreign Body Stated complaint: Glass in R foot Time Seen by Provider: 05/16/22 11:53 History of Present Illness HPI narrative: Patient complains of possible glass foreign body in right foot, she stepped on some broken glass and is concerned there might be a piece of broken glass in her right foot she has no redness denies any swelling denies any fever denies other injury Related Data Home Medications Medication Instructions Recorded Confirmed etonogestrel 68 mg subdermal 1 implant subdermal ONCE 01/20/22 01/20/22 implant (Nexplanon) melatonin 3 mg tablet 3 mg PO BEDTIME PRN 01/20/22 01/20/22 Previous Rx's Medication Instructions Recorded acetaminophen 325 mg tablet 650 mg PO Q6H PRN fever or pain 05/16/21 (Tylenol) #10 tabs ibuprofen 600 mg tablet 600 mg PO Q6H PRN pain #20 tabs 05/16/21 Allergies Allergy/AdvReac Type Severity Reaction Status Date / Time No Known Allergies Allergy Verified 01/20/22 14:19 Review of Systems Review of Systems: Right foot foreign body sensation Negatives no fever no chills no headache no neck pain no back pain no numbness weakness or tingling no discharge from wound no swelling no redness Yes all other systems are reviewed and are negative PMFSH Past Medical History Source: nursing notes reviewed Medical History (Updated 05/17/22 @ 00:01 by Phil Milligan) Epilepsy Surgical History (Updated 01/20/22 @ 13:54 by SOURAV Vick) History of appendectomy Family History Family History (Updated 01/20/22 @ 13:55 by SOURAV iVck) Mother Cervical cancer Father Diabetes High blood pressure Gum disease Other Mental health disorder Social History Social History (Updated 01/20/22 @ 13:56 by SOURAV Vick) Housing: House Alcohol intake: current Alcohol intake frequency: holidays/special occasions only Patient Tobacco Use Status: Never used Tobacco e-Cigarette/Vaping Use: Never Used Second Hand Smoke Exposure: No Advance Directives: No Advance Directives Information Provided: No service: No Current occupational status: employed Current occupation: Food services Cognitive needs: No Hearing needs: No Vision needs: No Physical Exam Vital Signs: Vital Signs: Last Vital Signs Temp 98.6 F 05/16/22 10:26 Pulse 89 05/16/22 10:26 Resp 18 05/16/22 10:26 BP 111/78 05/16/22 10:26 Pulse Ox 98 05/16/22 10:26 O2 Del Method 05/16/22 10:26 BMI result Body Mass Index 56.5 General appearance comfortable no distress Head is normocephalic atraumatic Neck is supple Respiratory no distress The back full range of motion Extremities full range of motion x4 The right foot had a small punctate puncture wound, no surrounding erythema no palpable foreign body no discharge from wound no swelling, skin of the foot was otherwise normal and there was no other tenderness in the was full range of motion Course Course Course Narrative: Exam showed a very small puncture wound, on palpation I could not feel any foreign body there is no evidence of infection no redness swelling or discharge, x-ray I could not see any foreign body that I would attempt to remove and patient is referred to orthopedist for further evaluation if foreign body sensation continues Patient states she got a tetanus shot a few months ago when she started a job Discharge Plan Discharge Clinical Impression: Puncture wound of foot, right Patient Disposition: Home, Self-Care Additional Instructions: I could not see any foreign body on the x-ray and I could not feel any when I touched her foot If there is a small foreign body I would not try to remove it now but if the sensation of a foreign body continues follow with orthopedist if needed they would get MRI or other imaging to see if there is a piece of glass in her foot, and if so specialist would decide whether not to remove it Return to the ER any time for any redness swelling, any sign of infection any worse condition any concerns Pharmacies in the foot section have round bandages with a hole in the center which are used for calluses or corns and might make it more comfortable to walk Prescriptions: No Action ibuprofen 600 mg tablet 600 mg PO Q6H PRN (Reason: pain) Qty: 20 0RF acetaminophen [Tylenol] 325 mg tablet 650 mg PO Q6H PRN (Reason: fever or pain) Qty: 10 0RF melatonin 3 mg tablet 3 mg PO BEDTIME PRN Nexplanon 68 mg implant 1 implant subdermal ONCE Referrals: Edgardo Jolley MD [Physician] - (Right foot foreign body) Interventions: ED Discharge Assessment Last Done: 05/16/22 12:19 Discharge Date/Time: 05/16/22 12:21
== END 2022-05-16 12:21 | disposition home or self-care (01) ==
PROVIDERS: Emergency Provider Emergency Medicine
DX: S91.331A Puncture wound without foreign body, right foot, initial encounter (principal); W25.XXXA Contact with sharp glass, initial encounter; Y93.9 Activity, unspecified; Y92.9 Unspecified place or not applicable; Y99.9 Unspecified external cause status
CPT/HCPCS: 73630; 99283

== ENCOUNTER 2022-07-15 15:49 | Emergency (ER) | payer OTHER, SELFPAY ==
[2022-07-15 15:56] VITALS: BP 159/69; PULSE 93; RESP 18; TEMP 36.2; O2SAT 98; BMI 56.5
[2022-07-15 16:27] LABS: Appearance Urine Cloudy; Color Urine Yellow; Glucose Urine UA Negative (Negative); Leukocyte Esterase Urine Moderate (2+) (Negative); Nitrite Urine Negative (Negative); Specific Gravity - Urine >= 1.030 (1.005-1.025); Urine Blood Negative (Negative); Urine Ketones Negative (Negative); Urine Protein Trace mg/dL (Neg-Trace)
[2022-07-15 16:52] LABS: Bacteria Urine 4+ (None Seen); Hyaline Casts Urine 0-2 /LPF (0-2); Other Crystals Urine Present; RBC Urine 0-2 /HPF (0-2); Squamous Epithelial Cell Urine >20 /HPF (0-2)
== END 2022-07-16 00:16 | disposition left against medical advice (07) ==
PROVIDERS: Emergency Provider Emergency Medicine
DX: R10.9 Unspecified abdominal pain (principal); M54.50 Low back pain, unspecified; Z79.899 Other long term (current) drug therapy
CPT/HCPCS: 81001; 99282

== ENCOUNTER 2022-07-17 11:42 | Emergency (ER) | payer OTHER, SELFPAY ==
--- NOTE | ~2022-07-17 | CT_ITS ---
EXAMINATION: CT ABDOMEN AND PELVIS WITHOUT CONTRAST CLINICAL INFORMATION: Nephrolithiasis. COMPARISON: 05/16/2021 TECHNIQUE: Multidetector volumetric imaging was performed from the superior aspect of the liver through the pubic symphysis. Sagittal and coronal reformatted images were obtained on the technologist's workstation. This CT examination was performed using dose optimization techniques as appropriate, variously including the following: *Automated exposure control *Adjustment of mA and/or kV according to patient size (this includes techniques or standardized protocols for targeted exams where dose is matched to indication/reason for exam; i.e. extremities or head) *Use of iterative reconstruction technique DLP: 1196 mGy-cm FINDINGS: LUNG BASES: The visualized lung bases are unremarkable. LIVER, GALLBLADDER, AND BILIARY TREE: The liver is normal in size, shape, and attenuation. No focal hepatic lesion or biliary ductal dilatation is present. The gallbladder is unremarkable with no evidence of radiopaque gallstones, gallbladder wall thickening, or obvious pericholecystic inflammatory changes. PANCREAS: Unremarkable. SPLEEN: Unremarkable. ADRENAL GLANDS: Unremarkable. KIDNEYS AND URETERS: Symmetric in size. Bilateral nonobstructing calculi measuring 3 mm and less. No hydronephrosis or hydroureter. No perinephric stranding. BLADDER: Underdistended. No bladder calculus. GASTROINTESTINAL TRACT: Small and large bowel loops are of normal caliber. No small bowel obstruction. ABDOMINAL WALL: No significant hernia is appreciated. LYMPH NODES: Multiple subcentimeter mesenteric lymph nodes are nonspecific. VASCULAR: Normal caliber abdominal aorta. PELVIC VISCERA: 5.9 x 5.3 x 5.5 cm hypodensity in the right adnexa. OSSEOUS STRUCTURES: No destructive bone lesions. CT/CT abdomen pelvis wo IV con IMPRESSION: Bilateral nonobstructing renal calculi. No hydronephrosis. Nonspecific subcentimeter mesenteric lymph nodes. 5.9 x 5.3 x 5.5 cm hypodensity in the right adnexa. Further characterization with pelvic ultrasound is recommended.
--- NOTE | ~2022-07-17 | US_ITS ---
EXAMINATION: US PELVIS CLINICAL INFORMATION: Right ovarian cyst, follow-up. COMPARISON: CT scan of the abdomen and pelvis performed today. TECHNIQUE: Ultrasound of the pelvis is performed using both transabdominal and transvaginal transducers along with Doppler. Transvaginal imaging is performed due to inadequate visualization transabdominally. FINDINGS: Uterus: The uterus is anteverted and measures 4.8 x 2.3 x 3.0 cm. The double wall endometrial thickness is 0.5 mm. The uterus is smooth in contour and has normal myometrial echogenicity. No visible fibroid. Adnexa: Both ovaries are visualized. There is normal color flow to the adnexa. There is no ovarian torsion. There is no pelvic ascites or fluid collection. Right ovary measures 5.2 x 5.2 x 4.9 cm. Heterogeneous with anechoic and hypoechoic components measuring 4.7 x 4.6 x 4.4 cm. Color Doppler showed no abnormal internal vascular flow. Duplex Doppler showed normal right ovarian vascular flow. Left ovary measures 2.8 x 1.5 x 2.1 cm. Color Doppler showed no abnormal vascular flow. US/US pelvic ovarian doppler IMPRESSION: 1. Right ovarian heterogeneous cyst likely represents a hemorrhagic physiologic cyst in a patient of this age however, given the size, a follow-up pelvic ultrasound is recommended in 3 months to assess for change.
--- NOTE | ~2022-07-17 | US_ITS ---
EXAMINATION: US PELVIS CLINICAL INFORMATION: Right ovarian cyst, follow-up. COMPARISON: CT scan of the abdomen and pelvis performed today. TECHNIQUE: Ultrasound of the pelvis is performed using both transabdominal and transvaginal transducers along with Doppler. Transvaginal imaging is performed due to inadequate visualization transabdominally. FINDINGS: Uterus: The uterus is anteverted and measures 4.8 x 2.3 x 3.0 cm. The double wall endometrial thickness is 0.5 mm. The uterus is smooth in contour and has normal myometrial echogenicity. No visible fibroid. Adnexa: Both ovaries are visualized. There is normal color flow to the adnexa. There is no ovarian torsion. There is no pelvic ascites or fluid collection. Right ovary measures 5.2 x 5.2 x 4.9 cm. Heterogeneous with anechoic and hypoechoic components measuring 4.7 x 4.6 x 4.4 cm. Color Doppler showed no abnormal internal vascular flow. Duplex Doppler showed normal right ovarian vascular flow. Left ovary measures 2.8 x 1.5 x 2.1 cm. Color Doppler showed no abnormal vascular flow. US/US pelvic and transvaginal IMPRESSION: 1. Right ovarian heterogeneous cyst likely represents a hemorrhagic physiologic cyst in a patient of this age however, given the size, a follow-up pelvic ultrasound is recommended in 3 months to assess for change.
[2022-07-17 11:50] VITALS: BP 158/74; PULSE 88; RESP 16; TEMP 36.9; O2SAT 98; BMI 56.5
[2022-07-17 12:47] VITALS: BP 137/81; PULSE 87; RESP 18; TEMP 36.7; O2SAT 99
[2022-07-17 13:03] LABS: Appearance Urine Clear; Color Urine Yellow; Glucose Urine UA Negative (Negative); Leukocyte Esterase Urine Negative (Negative); Nitrite Urine Negative (Negative); Urine Blood Negative (Negative); Urine Ketones Negative (Negative); Urine Protein Negative (Neg-Trace)
[2022-07-17 13:05] LABS: UPreg QC Valid YES; Urine Pregnancy NEGATIVE (NEGATIVE)
--- NOTE | 2022-07-17 15:40 | ED.ABDPAIN ---
HPI - Abdominal Pain General Chief Complaint: Abdominal Pain Stated Complaint: abd and back pain Time Seen by Provider: 07/17/22 12:34 Source: patient Mode of arrival: ambulatory Limitations: no limitations History of Present Illness HPI narrative: 22-year-old female with a past medical history of epilepsy and kidney stones presenting to the ER with complaints of right mid to lower back, right flank pain that is radiating to her suprapubic right area over the past few days worse today. Reports that she was in the waiting room here on 07/15/2022 and had a UA and she noticed that she had a UTI and crystals . On her urine when she checked on the patient for due to she was not seen due to long wait time therefore she returned today because she believes she might have kidney stones. She reports she is unsure she is having any hematuria. She denies any fevers, chills, dizziness, headaches, neck pain/ stiffness, trouble swallowing breathing, chest pain or shortness of breath, dyspnea on exertion, orthopnea, palpitations compared fevers, thoughts of STDs, dysuria, abnormal vaginal discharge, rashes, diarrhea constipation, recent travel or sick contacts or any other symptoms complaints or concerns at this time. MD elicited complaint: abdominal pain and flank pain Pertinent past history: kidney stones Onset (ago): day(s) ( 2-3 days worse today) Pain Consistency: constant Location: R flank Severity: mild Quality: aching Radiation: suprapubic (right sided) Exacerbating factors: nothing Relieving factors: nothing Associated symptoms: denies other symptoms Related Data Home Medications Medication Instructions Recorded Confirmed etonogestrel 68 mg subdermal 1 implant subdermal ONCE 01/20/22 01/20/22 implant (Nexplanon) melatonin 3 mg tablet 3 mg PO BEDTIME PRN 01/20/22 01/20/22 Previous Rx's Medication Instructions Recorded acetaminophen 325 mg tablet 650 mg PO Q6H PRN fever or pain 05/16/21 (Tylenol) #10 tabs ibuprofen 600 mg tablet 600 mg PO Q6H PRN pain #20 tabs 05/16/21 Allergies Allergy/AdvReac Type Severity Reaction Status Date / Time No Known Allergies Allergy Verified 07/15/22 15:56 Review of Systems Review of Systems Constitutional : No Fever, No Chills, No Night Sweats, No Fatigue, No Malaise Cardiovascular : No Chest Pain, No SOB Respiratory : No Cough, No Sputum, No Wheezing, No Dyspnea Gastrointestinal : No Nausea, No Vomiting, No Diarrhea, + abdominal Pain, No Hematochezia, No Melena Genitourinary : No irregular bleeding, No Dysuria, No Urinary Frequency, No Hematuria,No Urinary Incontinence, No Urgency, No Flank Pain Musculoskeletal : No joint pain, No Myalgias, No Joint Swelling Skin : No Skin Lesions, No rash Neuro : No Weakness, No Numbness, No Paresthesias, No Loss of Consciousness, No Dizziness, No Headache Heme/Lymph: No Lymphadenopathy Endocrine : No Temperature Intolerance Yes all other systems are reviewed and are negative PMFSH Past Medical History Attestation statement: The following information was validated with the patient. Source: old records reviewed and nursing notes reviewed Medical History Epilepsy Surgical History History of appendectomy Family History Family History Mother Cervical cancer Father Diabetes High blood pressure Gum disease Other Mental health disorder Social History Social History Housing: House Alcohol intake: current Alcohol intake frequency: holidays/special occasions only Patient Tobacco Use Status: Never used Tobacco e-Cigarette/Vaping Use: Never Used Second Hand Smoke Exposure: No Advance Directives: No Advance Directives Information Provided: No service: No Current occupational status: employed Current occupation: Food services Cognitive needs: No Hearing needs: No Vision needs: No Physical Exam ED Vital Signs: Vital Signs - 24 hr 07/17/22 11:50 07/17/22 12:47 Temperature 98.4 F 98.1 F Pulse Rate 88 87 Respiratory Rate 16 18 Blood Pressure 158/74 H 137/81 Pulse Oximetry 98 99 Oxygen Delivery Method Room Air Room Air BMI result Body Mass Index 56.5 Vital signs have been reviewed and all within normal limits Appearance: Alert. Oriented X3. No acute distress. Head: Normal external exam. Normocephalic. Eyes: PERRLA. EOMI. Conjunctiva and sclera normal. Eyelids normal. ENT: Pharynx normal. Uvula midline. Moist mucous membranes. No trismus noted. No drooling noted. No muffled voice noted. Neck: Normal inspection. Neck supple. FROM. No adenopathy. No meningeal signs. CVS: Normal heart rate and rhythm. Heart sound normal. No murmurs noted. Pulses normal throughout. Respiratory: No respiratory distress. Painless inspiration. Breath sounds normal. No wheezes/rales/rhonchi noted. Chest nontender. No accessory muscle usage noted or decreased air movement noted. Abdomen: Soft and mild tenderness to the right flank /right suprapubic area. Nondistended. No guarding. No rigidity. Bowel sounds normal in all 4 quadrants. No distention noted. No organomegaly noted. No visible injury noted. No rebound tenderness. Negative Rovsing sign. Negative obturator's sign. Negative psoas sign. Negative Dejesus sign. Back: + right sided CVA tenderness. Full range of motion noted. Skin: Skin warm and dry. Normal skin color. Normal skin turgor. No rashes/lesions/lacerations noted. Extremities: Extremities exhibit normal range of motion. Extremities nontender. Neuro: Oriented X 3. No motor deficit. No sensory deficit. Reflexes normal. Normal steady gait. CN's II-XII intact bilaterally? Course Course Course Narrative: 12:40pm - 22-year-old female with a past medical history of epilepsy and kidney stones presenting to the ER with complaints of right mid to lower back, right flank pain that is radiating to her suprapubic right area over the past few days worse today. Reports that she was in the waiting room here on 07/15/2022 and had a UA and she noticed that she had a UTI and crystals . On her urine when she checked on the patient for due to she was not seen due to long wait time therefore she returned today because she believes she might have kidney stones. Plan: Will obtain UA, UHCG, CT scan abdomen pelvis with IV contrast and re-evaluate. Reevaluation(s) Reevaluation #1: - Patient negative for UTI. No hematuria noted on urine. Patient negative for . - CT scan abdomen pelvis without IV contrast revealed of 5.9 x 5.3 x 5.5 cm hypodensity in the right adnexa. Further To characterization with pelvic ultrasound is recommended - therefore ultrasound of the pelvis is ordered at this time. Time: 16:04 Reevaluation #2: - Patient noted to have hemorrhagic cyst to the right ovary although they are recommending repeat imaging in 3 months and follow-up with OBGYN therefore I discussed this case with Dr. Gilbert he reported the patient should be tested for gonorrhea chlamydia although she can follow-up as an outpatient basis I explained this to the patient she understands agrees with plan to call OBGYN in the next 2-3 weeks to make a follow-up appointment and to return if any new or worsening symptoms. Patient understands agrees with this plan. Time: 16:42 MDM - Abdominal Pain Medical Records Attestation: I reviewed the patient's medical records. Lab Data Attestation: I reviewed the patient's lab results. Labs: Lab Results 07/17/22 07/17/22 Range/Units 12:47 12:47 Urine Color Yellow Urine Appearance Clear Urine pH 8.0 (5.0-9.0) Ur Specific [place] 1.020 (1.005-1.025) Urine Protein Negative (Neg-Trace) mg/dL Urine Glucose (UA) Negative (Negative) mg/dL Urine Ketones Negative (Negative) mg/dL Urine Blood Negative (Negative) Urine Nitrite Negative (Negative) Ur Leukocyte Esterase Negative (Negative) Urine Test NEGATIVE (NEGATIVE) Imaging Data CT scan abdomen pelvis without IV contrast: Attestation: I personally reviewed and interpreted this imaging study as follows: Radiologist's impression: FINDINGS: LUNG BASES: The visualized lung bases are unremarkable.? LIVER, GALLBLADDER, AND BILIARY TREE: The liver is normal in size, shape, and attenuation. No focal hepatic lesion or biliary ductal dilatation is present. The gallbladder is unremarkable with no evidence of radiopaque gallstones, gallbladder wall thickening, or obvious pericholecystic inflammatory changes.? PANCREAS: Unremarkable.? SPLEEN: Unremarkable.? ADRENAL GLANDS: Unremarkable.? KIDNEYS AND URETERS: Symmetric in size. Bilateral nonobstructing calculi measuring 3 mm and less. No hydronephrosis or hydroureter. No perinephric stranding. BLADDER: Underdistended. No bladder calculus. GASTROINTESTINAL TRACT: Small and large bowel loops are of normal caliber. No small bowel obstruction. ABDOMINAL WALL: No significant hernia is appreciated.? LYMPH NODES: Multiple subcentimeter mesenteric lymph nodes are nonspecific. VASCULAR: Normal caliber abdominal aorta. PELVIC VISCERA: 5.9 x 5.3 x 5.5 cm hypodensity in the right adnexa. OSSEOUS STRUCTURES: No destructive bone lesions.? CT/CT abdomen pelvis wo IV con IMPRESSION: Bilateral nonobstructing renal calculi. No hydronephrosis. ? Nonspecific subcentimeter mesenteric lymph nodes. ? 5.9 x 5.3 x 5.5 cm hypodensity in the right adnexa. Further characterization with pelvic ultrasound is recommended. Pelvic ultrasound: Attestation: I personally reviewed and interpreted this imaging study as follows: Radiologist's impression: FINDINGS: Uterus: The uterus is anteverted and measures 4.8 x 2.3 x 3.0 cm. The double wall endometrial thickness is 0.5 mm.? The uterus is smooth in contour and has normal myometrial echogenicity. ? No visible fibroid. Adnexa: Both ovaries are visualized. There is normal color flow to the adnexa. There is no ovarian torsion.? There is no pelvic ascites or fluid collection. Right ovary measures 5.2 x 5.2 x 4.9 cm. Heterogeneous with anechoic and hypoechoic components measuring 4.7 x 4.6 x 4.4 cm. Color Doppler showed no abnormal internal vascular flow. Duplex Doppler showed normal right ovarian vascular flow. Left ovary measures 2.8 x 1.5 x 2.1 cm. Color Doppler showed no abnormal vascular flow. US/US pelvic and transvaginal IMPRESSION: ? 1. Right ovarian heterogeneous cyst likely represents a hemorrhagic physiologic cyst in a patient of this age however, given the size, a follow-up pelvic ultrasound is recommended in 3 months to assess for change. Discharge Plan Discharge Clinical Impression: Hemorrhagic cyst of right ovary Patient Disposition: Home, Self-Care Instructions: Ovarian Cyst (ED) Prescriptions: No Action ibuprofen 600 mg tablet 600 mg PO Q6H PRN (Reason: pain) Qty: 20 0RF acetaminophen [Tylenol] 325 mg tablet 650 mg PO Q6H PRN (Reason: fever or pain) Qty: 10 0RF melatonin 3 mg tablet 3 mg PO BEDTIME PRN Nexplanon 68 mg implant 1 implant subdermal ONCE Referrals: Physician,None [Primary Care Provider] - 2 days (your pcp) Tre Gilbert MD [Physician] - 2 weeks (call to make a follow up appointment in 2-3 weeks ) Stand Alone Forms: Work/School Release
[2022-07-18 03:05] LABS: CT PCR NOT DETECTED (Not Detect.); NG PCR NOT DETECTED (Not Detect.)
== END 2022-07-17 16:59 | disposition home or self-care (01) ==
PROVIDERS: Physician Assistant Medical; Emergency Provider Emergency Medicine Emergency Medical Services
DX: N83.201 Unspecified ovarian cyst, right side (principal); N20.0 Calculus of kidney; M54.50 Low back pain, unspecified; Z20.2 Contact with and (suspected) exposure to infections with a predominantly sexual mode of transmission; Z79.899 Other long term (current) drug therapy
CPT/HCPCS: 74176; 76830; 76856; 81003; 81025; 87491; 87591; 93975; 99283; 99284

== ENCOUNTER 2022-07-20 14:56 | Emergency (ER) | payer OTHER, SELFPAY ==
[2022-07-20 16:04] VITALS: BP 130/71; PULSE 78; RESP 16; TEMP 36.7; O2SAT 96; BMI 61.0
[2022-07-20 16:23] LABS: Appearance Urine Clear; Color Urine Yellow; Glucose Urine UA Negative (Negative); Leukocyte Esterase Urine Negative (Negative); Nitrite Urine Negative (Negative); Urine Blood Large (3+) (Negative); Urine Ketones Negative (Negative); Urine Protein Negative (Neg-Trace)
[2022-07-20 16:26] LABS: UPreg QC Valid YES; Urine Pregnancy NEGATIVE (NEGATIVE)
[2022-07-20 16:28] LABS: Bacteria Urine None Seen (None Seen); Hyaline Casts Urine 0-2 /LPF (0-2); Squamous Epithelial Cell Urine 0-2 /HPF (0-2); WBC Urine 0-5 /HPF (0-5)
--- NOTE | 2022-07-20 16:56 | ED.FEMALEGU ---
HPI - Female Genitourinary General Chief complaint: Vaginal Bleeding Stated complaint: Ovarian Cyst Time Seen by Provider: 07/20/22 16:46 Source: patient Mode of arrival: ambulatory Limitations: no limitations History of Present Illness HPI Narrative: 22-year-old female with a history of PCOS who was seen here on July 17 and diagnosed with the right ovarian cyst presents with continued pain in the right side as well as some vaginal bleeding noted today. Patient tells me that she was instructed to return for any continued pain or bleeding. She did call her emulsion operator at [facility] and has an appointment on August 06 to be seen. She denies any urinary symptoms, fevers or chills or vomiting. She reports she has changed her tampon 1 since the vaginal bleeding started. Her last menstrual cycle was in June but she is unclear of the exact date Related Data Home Medications Medication Instructions Recorded Confirmed etonogestrel 68 mg subdermal 1 implant subdermal ONCE 01/20/22 01/20/22 implant (Nexplanon) melatonin 3 mg tablet 3 mg PO BEDTIME PRN 01/20/22 01/20/22 Previous Rx's Medication Instructions Recorded acetaminophen 325 mg tablet 650 mg PO Q6H PRN fever or pain 05/16/21 (Tylenol) #10 tabs ibuprofen 600 mg tablet 600 mg PO Q6H PRN pain #20 tabs 05/16/21 Allergies Allergy/AdvReac Type Severity Reaction Status Date / Time No Known Allergies Allergy Verified 07/15/22 15:56 Review of Systems Review of Systems: Yes all other systems are reviewed and are negative Constitutional: Constitutional: Reports no additional constitutional complaints, Denies body ache(s), Denies chills, Denies fever(s), Denies headache(s) and Denies weakness Eyes: Eyes: Reports no additional eye complaints and Denies change in vision ENT: Reports system reviewed and no additional complaints, except as documented, Denies dizziness, Denies headache(s), Denies nasal congestion, Denies nasal discharge and Denies neck pain Cardiovascular: Cardiovascular: Reports no additional cardiovascular complaints, Denies chest pain, Denies leg edema and Denies dyspnea Respiratory: Respiratory: Reports no additional respiratory complaints, Denies cough and Denies dyspnea Gastrointestinal: Gastrointestinal: Reports no additional gastrointestinal complaints, Denies abdominal pain, Denies diarrhea, Denies nausea and Denies vomiting Genitourinary: Genitourinary: Reports no additional female genitourinary complaints, Reports abnormal vaginal bleeding, Reports pelvic pain and Denies urinary incontinence Musculoskeletal: Musculoskeletal: Reports no additional musculoskeletal complaints, Denies back pain, Denies arthralgias, Denies joint swelling, Denies neck pain, Denies numbness and Denies tingling Integumentary/Breasts: Skin/Breast: Reports system reviewed and no additional complaints, except as docu and Denies rash Neurologic: Reports system reviewed and no additional complaints, except as documented, Denies Abnormal speech present, Denies dizziness, Denies headache(s), Denies numbness, Denies tingling and Denies weakness PMFSH Past Medical History Attestation statement: The following information was validated with the patient. Source: old records reviewed and nursing notes reviewed Medical History Epilepsy Surgical History History of appendectomy Family History Family History Mother Cervical cancer Father Diabetes High blood pressure Gum disease Other Mental health disorder Social History Social History Housing: House Alcohol intake: current Alcohol intake frequency: holidays/special occasions only Patient Tobacco Use Status: Never used Tobacco e-Cigarette/Vaping Use: Never Used Second Hand Smoke Exposure: No Advance Directives: No Advance Directives Information Provided: Yes service: No Current occupational status: employed Current occupation: Food services Cognitive needs: No Hearing needs: No Vision needs: No Physical Exam Vital Signs: Vital Signs: Last Vital Signs Temp 98.0 F 07/20/22 16:04 Pulse 78 07/20/22 16:04 Resp 16 07/20/22 16:04 BP 130/71 07/20/22 16:04 Pulse Ox 96 07/20/22 16:04 O2 Del Method 07/20/22 16:04 BMI result Body Mass Index 61.0 Const: General: cooperative, healthy appearing, comfortable and no acute distress Orientation/consciousness: patient oriented x3 Limitations: no limitations HEENT: Head: Yes normal to inspection Ears: hearing grossly normal bilaterally General nose exam: Normal external nose present Face and sinus: Yes normal facial exam Mouth: Normal oral and palatal mucosa present Throat: Yes posterior oropharynx normal Eyes: General: appearance normal, both eyes and all related structures Pupils: Equal, round and reactive pupils present Neck: Neck: Yes normal visual inspection Chest: Chest palpation & inspection: normal inspection of the chest Resp: Effort & Inspection: normal respiratory effort Auscultation: clear to auscultation bilaterally Cardio: Rate: regular rate Rhythm: regular rhythm Peripheral pulses: Peripheral pulses 2+ throughout GI: Inspection: Yes normal to inspection Palpation (GI): Soft to palpation and Tenderness to palpation present (GI) (Mild tenderness to the right lower pelvic with no rebound or guarding) Auscultation: normal bowel sounds Back/Spine/Pelvis: Thoracic/Lumbar Spine: thoracic and lumbar spine normal to inspection Skin: General skin exam: no rashes or lesions noted Neuro: General: patient oriented x3, no focal motor deficits and normal sensation to monofilament Cranial nerves: Yes Equal, round and reactive pupils present Cognition (Neuro): normal cognition Speech: No Abnormal speech present Gait exam (Neuro): Normal gait present Motor exam (neuro): 5/5 motor strength present throughout Extrem: General: Yes normal to inspection MDM - Female Genitourinary MDM Narrative Medical decision making narrative: 22-year-old female with a known right-sided ovarian cyst which was diagnosed on July 17 presents to the ER with some vaginal bleeding and right-sided pain. Abdomen is soft with some mild tenderness to the right pelvic area. No rebound or guarding. Patient appears comfortable and tells me the pain is well controlled with Tylenol or Motrin. She was mainly concerned because of the bleeding. She has use 1 tampons since the bleeding began. Does not appear the paced and is having any heavy bleeding. Hemodynamically she is stable. Her last menstrual cycle was in June but she is unsure what date. This may be the patient's menses. Reassurance was provided. Patient has follow-up with her emulsion operator in 2 weeks Recommend she return for any severe pain, heavy bleeding, fevers or vomiting Medical Records Attestation: I reviewed the patient's medical records. Lab Data Attestation: I reviewed the patient's lab results. Labs: Lab Results 07/20/22 07/20/22 Range/Units 16:15 16:15 Urine Color Yellow Urine Appearance Clear Urine pH 6.0 (5.0-9.0) Ur Specific [place] 1.010 (1.005-1.025) Urine Protein Negative (Neg-Trace) mg/dL Urine Glucose (UA) Negative (Negative) mg/dL Urine Ketones Negative (Negative) mg/dL Urine Blood Large (3+) H (Negative) Urine Nitrite Negative (Negative) Ur Leukocyte Esterase Negative (Negative) Urine RBC 6-10 H (0-2) /HPF Urine WBC 0-5 (0-5) /HPF Ur Squamous Epith Cells 0-2 (0-2) /HPF Urine Bacteria None Seen (None Seen) Hyaline Casts 0-2 (0-2) /LPF Urine Test NEGATIVE (NEGATIVE) Discharge Plan Discharge Clinical Impression: Ovarian cyst Patient Disposition: Home, Self-Care Instructions: Ovarian Cyst (ED) Additional Instructions: Return for severe pain, vomiting, going through more than 1 pad an 1 hour Continue to follow-up with your emulsion operator as scheduled Take Motrin or Tylenol for pain as needed Prescriptions: No Action ibuprofen 600 mg tablet 600 mg PO Q6H PRN (Reason: pain) Qty: 20 0RF acetaminophen [Tylenol] 325 mg tablet 650 mg PO Q6H PRN (Reason: fever or pain) Qty: 10 0RF melatonin 3 mg tablet 3 mg PO BEDTIME PRN Nexplanon 68 mg implant 1 implant subdermal ONCE
== END 2022-07-20 18:05 | disposition home or self-care (01) ==
PROVIDERS: Emergency Provider Internal Medicine
DX: N83.201 Unspecified ovarian cyst, right side (principal); Z79.899 Other long term (current) drug therapy
CPT/HCPCS: 81001; 81025; 99282; 99283

== ENCOUNTER 2022-08-28 15:51 | Outpatient (REF) | payer OTHER, SELFPAY ==
--- NOTE | ~2022-08-28 | US_ITS ---
EXAMINATION: US RETROPERITONEAL LIMITED (RENAL ONLY) CLINICAL INFORMATION: Calculus of kidney. COMPARISON: CT abdomen and pelvis 07/17/2022. Ultrasound renal 12/20/2021. TECHNIQUE: Real-time imaging of the kidneys. Limited visualization due to bowel gas and body habitus. FINDINGS: RIGHT KIDNEY: 11.3 x 5.1 x 5.4 cm (SAG x AP x TRV). No hydronephrosis. No renal calculi. Limited visualization. LEFT KIDNEY: 10.1 x 4.8 x 4.7 cm (SAG x AP x TRV). No hydronephrosis. No renal calculi. Limited visualization. US/US renal BI IMPRESSION: No hydronephrosis. No renal calculi. Limited visualization.
== END 2022-08-28 15:52 | disposition home or self-care (01) ==
LOC: HO.US 15:51
DX: N20.0 Calculus of kidney (principal)
CPT/HCPCS: 76775

== ENCOUNTER 2023-04-23 12:20 | Outpatient (REF) | payer OTHER, SELFPAY ==
[2023-04-23 12:29] LABS: MANUAL DIFF FLAG NO
[2023-04-23 12:49] LABS: Basophils Absolute Auto 0.1 X10*3/uL (0.0-0.2); Basophils Percent Auto 0.7 % (0-2); Eosinophils Absolute Auto 0.1 X10*3/uL (0.0-0.4); Eosinophils Percent Auto 0.7 % (0-4); Hematocrit 42.2 % (37.0-47.0); Hemoglobin 13.9 g/dl (12.0-16.0); Imm Gran Abs Auto 0.03 X10*3/uL (0.00-0.03); Imm Gran Pct Auto 0.4 % (0.0-0.4); Lymphocytes Absolute Auto 2.2 X10*3/uL (1.2-4.9); Lymphocytes Percent Auto 26.9 % (20-40); Mean Corpuscular HGB Conc 32.9 g/dl (31.0-35.0); Mean Corpuscular Hemoglobin 28.4 pg (27.0-33.0); Mean Corpuscular Volume 86.3 fL (80.0-98.0); Mean Platelet Volume 10.3 fL (9.4-12.3); Monocytes Absolute Auto 0.6 X10*3/uL (0.1-1.2); Monocytes Percent Auto 7.4 % (2-11); Neutrophils Absolute Auto 5.3 x10*3/uL (2.0-8.3); Neutrophils Percent Auto 63.9 % (45-73); Platelet Count 439 X10*3/uL (160-400); Red Blood Count 4.89 X10*6/uL (4.20-5.50); Red Cell Distribution Width 13.8 % (11.0-16.0); White Blood Count 8.2 X10*3/uL (4.8-10.8)
[2023-04-23 13:21] LABS: Alanine Aminotransferase 12 U/L (0-31); Albumin Level 4.3 g/dL (3.5-5.0); Alkaline Phosphatase 73 U/L (39-117); Anion Gap 13 (12-20); Aspartate Amino Transferase 15 U/L (5-31); Bilirubin Total 0.5 mg/dL (0.0-1.0); Blood Urea Nitrogen 7 mg/dL (9-16); Calcium 9.4 mg/dL (8.4-10.2); Carbon Dioxide 25 mmol/L (22-29); Chloride 108 mmol/L (96-108); Estimated Glomerular Filt Rate > 60; Glucose Random 84 mg/dL (60-115); Sodium 142 mmol/L (135-145); Total Protein 7.7 g/dL (6.5-8.0)
[2023-04-23 13:36] LABS: TSH reflex Free T4 0.85 uIU/mL (0.32-4.0); Vitamin D 25-OH Total 11.5 ng/mL (>30)
[2023-04-23 13:48] LABS: Folate 8.4 ng/mL (> or = 4.0)
[2023-04-23 14:12] LABS: Vitamin B12 359 pg/mL (200-900)
== END 2023-04-23 12:21 | disposition home or self-care (01) ==
LOC: HO.LAB 12:20
PROVIDERS: PCP Nurse Practitioner Family; Visit Provider Nurse Practitioner Family
DX: Z00.00 Encounter for general adult medical examination without abnormal findings (principal)
CPT/HCPCS: 36415; 80053; 82306; 82607; 82746; 84443; 85025

== ENCOUNTER 2023-07-23 15:32 | Outpatient (REF) | payer OTHER, SELFPAY ==
[2023-07-23 16:21] LABS: Hematocrit 44.8 % (37.0-47.0); Hemoglobin 14.1 g/dl (12.0-16.0); Mean Corpuscular HGB Conc 31.5 g/dl (31.0-35.0); Mean Corpuscular Hemoglobin 28.4 pg (27.0-33.0); Mean Corpuscular Volume 90.3 fL (80.0-98.0); Mean Platelet Volume 10.8 fL (9.4-12.3); Platelet Count 437 X10*3/uL (160-400); Red Blood Count 4.96 X10*6/uL (4.20-5.50); Red Cell Distribution Width 13.8 % (11.0-16.0); White Blood Count 12.3 X10*3/uL (4.8-10.8)
[2023-07-23 17:05] LABS: Vitamin D 25-OH Total 20.6 ng/mL (>30)
[2023-07-23 17:12] LABS: Appearance Urine Turbid; Color Urine Yellow; Glucose Urine UA Negative (Negative); Leukocyte Esterase Urine Large (3+) (Negative); Nitrite Urine Negative (Negative); UMIC TRIGGER UACC YES; Urine Blood Large (3+) (Negative); Urine Ketones Negative (Negative); Urine Protein 100 (2+) mg/dL (Neg-Trace)
[2023-07-23 17:35] LABS: Bacteria Urine Trace (None Seen); Hyaline Casts Urine 0-2 /LPF (0-2); RBC Urine >20 /HPF (0-2); UACC Culture Trigger YES; WBC Urine >50 /HPF (0-5)
== END 2023-07-23 15:33 | disposition home or self-care (01) ==
LOC: HO.LAB 15:32
PROVIDERS: PCP Nurse Practitioner Family; Visit Provider Nurse Practitioner Family
DX: R39.9 Unspecified symptoms and signs involving the genitourinary system (principal); E55.9 Vitamin D deficiency, unspecified
CPT/HCPCS: 36415; 81001; 81003; 82306; 85027; 87086

== ENCOUNTER 2023-10-22 09:32 | Outpatient (AMB) | payer OTHER, SELFPAY ==
--- NOTE | 2023-10-22 09:40 | MHC.PC.OV ---
Vital Signs 10/22/23 09:41 Height 4 ft 11 in Weight 269 lb BMI 54.3 BP 118/74 Blood Pressure Location Lt brachial Position Sitting Pulse 89 Pulse Source Pulse Oximeter Pulse Oximetry (%) 99 Oxygen Delivery Method Room Air Intake Visit Reasons: Laryngytis Intake Note: Patient is here to follow up on Laryngitis started two days ago. Has tried cough drop and congestion medication OTC. Call Center Operations Manager Required: No Car Dropper: Not Required per policy Accompanied by: Self / Same As Patient Allergies No Known Allergies Allergy (Verified 10/22/23 09:41) Tobacco use date assessed: 10/22/23 Dental Screening Dental Screen Date: 10/22/23 Did you have a dental visit in the last 12 months?: No Did you have a dental problem in the last 6 months where you did not have access to dental care?: No Was dental information given to patient?: No HPI HPI Comments History of Present Illness Details 23-year-old female past medical history significant for low vitamin-D, epilepsy, anxiety, depression and nephrolithiasis. Patient of Donna Blair presents today for dry trhoat and has been phlegmy. Patient reports coughing up green phlegm, sinus and pain pressure and woke up with no voice yesterday. Denies sore throat. Patient reports chills, unsure if she has had a fever as she has not checked her temperature but at times has felt warm. [facility] Medical History (Updated 07/24/23 @ 13:24 by LINDA Acosta) Otitis media, right Encounter to establish care Epilepsy Surgical History History of appendectomy Family History Mother Cervical cancer Father Diabetes High blood pressure Gum disease Other Mental health disorder Social History Housing: House Alcohol intake: current Alcohol intake frequency: holidays/special occasions only Patient Tobacco Use Status: Never used Tobacco e-Cigarette/Vaping Use: Never Used Second Hand Smoke Exposure: No service: No Current occupational status: employed Current occupation: Food services Cognitive needs: No Hearing needs: No Vision needs: No Questionnaire Thrive Questionnaire Date Thrive assessed: 03/19/23 ANT-7 AMB Questionnaire ANT-7 Date ANT - 7 assessed: 03/19/23 Source: Developed by Drs. Simeon Mendoza, Cathi Goncalves, Ernie Carolina and colleagues, with an educational luigi from [employer]. Review of Systems Const Denies chills, Denies fatigue, Denies fever(s) and Denies poor appetite Eyes Denies no additional complaints ENT Reports Normal hearing present Card Denies chest pain, Denies syncope, Denies rapid heart rate and Denies dyspnea Resp Reports change in phlegm color (green phlegm ), Reports cough and Denies dyspnea GI Denies change in stool character, Denies constipation, Denies diarrhea, Denies nausea and Denies vomiting Denies urinary frequency, Denies dysuria and Denies urinary urgency Neuro Reports Normal hearing present, Denies confusion and Denies syncope Psych Denies confusion Endo Denies fatigue Physical exam (Primary Care) Vital Signs: Last Vital Signs Pulse 89 10/22/23 09:41 BP 118/74 10/22/23 09:41 Pulse Ox 99 10/22/23 09:41 Oxygen Delivery Method Room Air 10/22/23 09:41 BMI result Body Mass Index 54.3 Tobacco/Smoking Status: Tobacco use Status Tobacco use date assessed 10/22/23 10/22/23 09:45 Patient Tobacco Use Status Never used Tobacco 10/22/23 09:45 e-Cigarette/Vaping Use Never Used 10/22/23 09:45 Thrive Assessment: Date of Thrive Assessment Date Thrive assessed 03/19/23 10/22/23 09:45 Const General: No confusion Orientation/consciousness: No confusion HENMT Head: Yes normocephalic and Yes atraumatic Ears: external ears normal and TM's normal bilaterally General nose exam: Normal external nose present and Normal nasal mucous membranes and turbinates present Face and sinus: Yes normal facial exam and Yes sinuses nontender Mouth: moist mucous membranes Throat: Yes uvula midline and Yes other (tonsil 1+, no exudate ) Eyes Conjunctivae: conjunctivae normal Sclerae: sclerae normal Neck Neck: Yes no lymphadenopathy and Yes supple Chest Chest palpation & inspection: normal inspection of the chest Resp Effort & Inspection: normal respiratory effort Auscultation: clear to auscultation bilaterally, no crackles, no rhonchi and no wheezes Cardio Rate: regular rate Rhythm: regular rhythm Heart sounds: S1 normal heart sound present and S2 normal heart sound present GI Inspection: Yes normal to inspection Neuro General: No confusion Cranial nerves: Yes Normal hearing present Extrem General: No edema Office Procedures Flu Questionnaire Does the patient have a severe egg allergy?: No Does the patient have severe life threatening allergies?: No Does the patient have a fever or illness today?: No Has the patient ever had Guillain-[place] Syndrome?: No Has the patient ever had any past reaction to a flu shot?: No Immunizations flu vacc [id number] 6mos up(PF) 60 mcg(15 mcgx4)/0.5 mL IM syringe Performing Provider: LINDA Brown [facility] Administered by: Lizbeth Last on 10/22/23 10:05 Dose Route Admin Location Dispensed Lot Number Expiration Date [employer] 0.5 mL IM Left Deltoid 0.5 mL [id number] 05/08/24 44893-174-05 [employer] VIS Given Date VIS Provided VIS Publication Date 10/22/23 Single Vaccine 21 Eligibility Eligibility Date Funding Source Not [facility] Eligible 10/22/23 Private Assessment and Plan Assessment & Plan (1) Upper respiratory infection: Code(s): J06.9 - Acute upper respiratory infection, unspecified Plan: Given patient having persisting cough with green sputum will send azithromycin for upper respiratory infection. (2) Laryngitis acute, spasmodic: Code(s): J04.0 - Acute laryngitis Plan: Patient advised to drink warm tea with honey, use throat lozenges and rest voice. Patient requesting note for tomorrow for work, work note given. Plan Keep scheduled follow-up with PCP or follow-up sooner if needed. Orders: Orders Influenza [id number] Immunization Today Z23 - Encounter for immunization Medications: New azithromycin For 250 mg dose pack: take 500 mg today (day 1), then 250 mg for 4 days (days 2-5) PO 6 tabs 0RF Coding Level of Care Code Est Pt Level 3 (99177) Diagnoses Upper respiratory infection J06.9 Laryngitis acute, spasmodic J04.0
[2023-10-22 09:41] VITALS: BP 118/74; PULSE 89; O2SAT 99; BMI 54.3
== END 2023-10-22 11:16 | disposition home or self-care (01) ==
PROVIDERS: PCP Nurse Practitioner Family; Visit Provider Nurse Practitioner Family
DX: J06.9 Acute upper respiratory infection, unspecified (principal); J04.0 Acute laryngitis; Z23 Encounter for immunization
CPT/HCPCS: 90471; 90686; 99213

== ENCOUNTER 2024-05-09 10:59 | Outpatient (AMB) | payer OTHER, SELFPAY ==
[2024-05-09 11:11] VITALS: BP 116/78; PULSE 77; RESP 13; O2SAT 98; BMI 61.4
--- NOTE | 2024-05-09 11:11 | MHC.PC.OV ---
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 Patient notes she has concerns for epilepsy and has not seen a neurologist since 2011. Patient reports she saw cardiology as a pediatric patient and would like a referral to an adult course developer. Patient reports she has felt more anxious recently and has concerns for stress eating. Patient is wondering about a medical marijuana card. Cloth Finisher Required: No Accompanied by: Self / Same As Patient Allergies No Known Allergies Allergy (Verified 05/09/24 11:37) Medication List - Last Reconciled 05/09/24 by Aster Bellamy, CHAIN HOIST OPERATOR- albuterol sulfate 90 mcg/actuation (Ventolin HFA) 2 puffs inhalation Q4-6H PRN cholecalciferol (vitamin D3) 50 mcg PO DAILY Tobacco use date assessed: 05/09/24 Dental Screening Dental Screen Date: 05/09/24 Did you have a dental visit in the last 12 months?: No Did you have a dental problem in the last 6 months where you did not have access to dental care?: No Was dental information given to patient?: Yes HPI HPI Comments History of Present Illness Details 24-year-old female vitamin-D deficiency, morbid obesity, asthma, generalized anxiety disorder, MDD, nephrolithiasis, epilepsy generalized anxiety, diverticulosis, umbilical hernia status post appendectomy Health Maintenance: ? PAP 2021 @ [facility] ? Tdap given today Specialists: Urology Here today to establish care and for complete physical exam. Has a diagnosis of epilepsy. She reports that her last known seizure was in 2011. She has not been followed by Neurology in some time. She was managed by [facility] in the past. However in February she worries that she had a recurrent seizure. She reports she was sleeping and had shaking jumping off bed , parents came in and sprayed her with h20 and she then woke up with confusion . did not have to seek medical care. States she was awake and aware of this activity of jumping and shaking in her bed. There was no urinary incontinence. She has not maintained on any antiseizure medications. She would like a referral to Neurology Reports childhood fu with Cards for extra heart beat was on medication to use PRN, ? a betablocker. I dont have records. Requesting Cards referral for eval and tx. At this time denies any cardiac symptoms. MDD/ANT - interested in counseling referral as long as its virtual d/t lack of transportation. Admits to being under stress. Does not want any medications to help with her mood. Would like a referral for medical marijuana. Uro - was supposed to be routinely follow up for nephrolithiasis, fell out of care, needs new referral placed, admits to being overdue. Vitamin-D deficiency. Noted on last 2 sets of labs. Takes daily supplement. Mild intermittent asthma well controlled on p.r.n. Berta. Continue. Plan: Refer to [facility] Neuro Refer to Cards at [facility]. Aware may need records to substantiate a heart dz. Nurse Fernando referral to help with a positive thrive screen and to help establish care with a counselor [employer] certification for mariameliauna use Initial Medical & make appt with a provider Refer back to Uro Refer to [facility] for Pap/womens health Refill inhaler Increase Vit D3 from 2000 IU QD to 5000IU QD. rto in 6 mo to f/u on asthma/mood, sooner PRN Labs from today show a normal CBC with the exception of mild elevation in her platelet count 430, this appears to be a chronic get stable condition. Normal electrolytes, normal renal function, hemoglobin A1c 5.2%, normal LFTs, normal vitamin B12, low vitamin D 24.9 (on supplement), normal TSH, normal urine microalbumin creatinine ratio, direct LDL is pending at this time [facility] Medical History (Updated 05/09/24 @ 11:58 by Aster Bellamy, [facility]) Nephrolithiasis Otitis media, right Encounter to establish care Epilepsy Surgical History History of appendectomy Family History Mother Cervical cancer Father Diabetes High blood pressure Gum disease Other Mental health disorder Social History Housing: House Alcohol intake: current Alcohol intake frequency: holidays/special occasions only Patient Tobacco Use Status: Never used Tobacco e-Cigarette/Vaping Use: Never Used Second Hand Smoke Exposure: No service: No Current occupational status: employed Current occupation: Food services, [employer] Cognitive needs: No Hearing needs: No Vision needs: No Questionnaire PHQ-9 Over the last 2 weeks, how often have you been bothered by any of the following problems? 1. Little interest or pleasure in doing things: several days 2. Feeling down, depressed, or hopeless: several days 3. Trouble falling or staying asleep, or sleeping too much: several days 4. Feeling tired or having little energy: several days 5. Poor appetite or overeating: more than half the days 6. Feeling bad about yourself - or that you are a failure or have let yourself or your family down: not at all 7. Trouble concentrating on things, such as reading the newspaper or watching television: not at all 8. Moving or speaking so slowly that other people could have noticed. Or the opposite - being so fidgety or restless that you have been moving around a lot more than usual: several days 9. Thoughts that you would be better off or of hurting yourself in some way: not at all Total score: 7 Depression Screening Interpretation: Positive Depression Screening Follow-up: Existing condition and Community Mental Health Worker F/U Depression Screening Done: Yes 49012 - PHQ-9 Billing: Yes Source: Developed by Drs. Simeon Mendoza, Cathi Goncalves, Ernie Carolina and colleagues, with an educational luigi from [employer]. Thrive Questionnaire Date Thrive assessed: 05/09/24 I am a: Patient What is your living situation today?: I have a steady place to live Within the past 12 months, did the food you bought not last and you didn't have the money to get more?: Never true Within the past 12 months, did you worry whether your food would run out before you got money to buy more?: Never true Do you have trouble paying for medicines?: No Do you have trouble getting transportation to medical appointments?: No Do you have trouble paying your heating and electricity bill?: Yes Do you have trouble taking care of your child, family member or friend?: No Do you have trouble with day-to-day activities such as bathing, preparing meals, shopping, managing finances, etc.?: Yes Are you currently unemployed and looking for a job?: No Are you interested in more education?: Yes Please select the resources that you would like help with: Utilities Currently or been in a relationship where the following occur: No concerns reported THRIVE Score: 1 AUDIT C Alcohol Use Questionnaire (AUDIT-C) 1. How often do you have a drink containing alcohol?: Monthly or less 2. How many drinks containing alcohol do you have on a typical day when you are drinking?: 1 or 2 3. How often do you have six or more drinks on one occasion?: Never Total Score: 1 Score Reviewed/Action Taken: Yes ANT-7 AMB Questionnaire ANT-7 Date ANT - 7 assessed: 05/09/24 Feeling nervous, anxious, or on edge: 3 = Nearly every day Not being able to stop or control worryin = Nearly every day Worrying too much about different things: 1 = Several days Trouble relaxin = Several days Being so restless that it is hard to sit still: 0 = Not at all Becoming easily annoyed or irritable: 1 = Several days Feeling afraid as if something awful might happen: 1 = Several days Total ANT-7 score (0-4 normal; 5-9 mild; 10-14 moderate; 15-21 severe): 10 Source: Developed by Drs. Simeon Mendoza, Cathi Goncalves, Ernie Carolina and colleagues, with an educational luigi from [employer]. ANT-7 Assessment Billing ANT-7 Assessment Tool: ANT-7 Assessment 65037 ACT Questionnaire In the past 4 weeks, how much of the time did your asthma keep you from getting as much done at work, school or at home?: None of the time During the past 4 weeks, how often have you had shortness of breath?: Not at all During the past 4 weeks, how often did your asthma symptoms wake you up at night or earlier than usual in the morning?: Not at all During the past 4 weeks, how often have you had to use your rescue inhaler or nebulizer medication?: Not at all How would you rate your asthma control during the past 4 weeks?: Completely controlled ACT Interpretation: Negative Score: 25 Physical exam (Primary Care) Vital Signs: Last Vital Signs Pulse 77 05/09/24 11:11 Resp 13 05/09/24 11:11 BP 116/78 05/09/24 11:11 Pulse Ox 98 05/09/24 11:11 Oxygen Delivery Method Room Air 05/09/24 11:11 BMI result Body Mass Index 61.4 Tobacco/Smoking Status: Tobacco use Status Tobacco use date assessed 05/09/24 05/09/24 11:16 Patient Tobacco Use Status Never used Tobacco 05/09/24 11:16 e-Cigarette/Vaping Use Never Used 05/09/24 11:16 PHQ-9: PHQ-9 Score PHQ-9: Total score 7 05/09/24 14:14 Depression Screening Interpretation: Positive Depression Screening Follow-up: Existing condition and Community Mental Health Worker F/U Thrive Assessment: Date of Thrive Assessment Date Thrive assessed 05/09/24 05/09/24 11:21 Currently or been in a relationship where the following occur: No concerns reported Immunizations Boostrix Tdap 2.5 Lf unit-8 mcg-5 Lf/0.5 mL intramuscular syringe Performing Provider: MIC Stanley Performing Location: [facility] Administered by: Lyssa Oliva CMA on 05/09/24 12:07 Dose Route Admin Location Dispensed Lot Number Expiration Date NDC Field Operations Technician 0.5 mL IM Right Deltoid 0.5 mL [id number] 06/17/26 [id number] VIS Given Date VIS Provided VIS Publication Date 05/09/24 Single Vaccine 21 Eligibility Eligibility Date Funding Source Not [facility] Eligible 05/09/24 Private Assessment and Plan Assessment & Plan (1) Epilepsy: Code(s): G40.909 - Epilepsy, unspecified, not intractable, without status epilepticus (2) PVC (premature ventricular contraction): Code(s): I49.3 - Ventricular premature depolarization (3) Encounter for screening involving social determinants of health (SDoH): Code(s): Z13.9 - Encounter for screening, unspecified (4) Nephrolithiasis: Code(s): N20.0 - Calculus of kidney (5) Cervical cancer screening: Code(s): Z12.4 - Encounter for screening for malignant neoplasm of cervix (6) Laboratory exam ordered as part of routine general medical examination: Code(s): Z00.00 - Encounter for general adult medical examination without abnormal findings Orders: Orders Complete Blood Count no Diff Today Z00.00 - Encounter for general adult medical examination without abnormal findings Microalbumin, Random (w Creat) Today Z00.00 - Encounter for general adult medical examination without abnormal findings Vitamin B12 and Folate Today Z00.00 - Encounter for general adult medical examination without abnormal findings TDaP Immunization Today Z00.00 - Encounter for general adult medical examination without abnormal findings, Z23 - Encounter for immunization Comprehensive Met. Panel Today Z00.00 - Encounter for general adult medical examination without abnormal findings Hemoglobin A1c Today Z00.00 - Encounter for general adult medical examination without abnormal findings LDL Cholesterol Direct Today Z00.00 - Encounter for general adult medical examination without abnormal findings TSH reflex Free T4 Today Z00.00 - Encounter for general adult medical examination without abnormal findings Vitamin D 25-OH Total Today Z00.00 - Encounter for general adult medical examination without abnormal findings Referrals Nurse Navigator Referral Z13.9 - Encounter for screening, unspecified ASSISTANT SALES MANAGER Referral Z12.4 - Encounter for screening for malignant neoplasm of cervix Neurology Referral G40.909 - Epilepsy, unspecified, not intractable, without status epilepticus Cardiology Referral I49.3 - Ventricular premature depolarization Urology Referral N20.0 - Calculus of kidney Medications: New cholecalciferol (vitamin D3) 125 mcg PO DAILY 90 caps 2RF Refilled albuterol sulfate 90 mcg/actuation (Ventolin HFA) 2 puffs inhalation Q4-6H PRN 8.5 grams 1RF shortness of breath or wheezing J45.909 - Unspecified asthma, uncomplicated Discontinued cholecalciferol (vitamin D3) Discontinued Reason: Doctor's Order 50 mcg PO DAILY 90 tabs 0RF R79.89 - Other specified abnormal findings of blood chemistry Patient Instructions: Return to office in 6 months to follow up on asthma and mood. Sooner if needed. Walk-In Care (Urgent Care): We Make it Easy Walk-in for urgent medical issues such as: ? Seasonal Allergies ? Insect Bites ? Cough ? Diarrhea ? Acute Asthma Attacks ? Back, Knee or Joint Pain ? Ear Infection ? Fever without a Rash ? Headaches ? Nausea ? [place] Eye, Rash or Skin Irritation ? Sore Throat ? Sports Physicals ? Vomiting Most insurances are accepted. Patients do not need to be part of the [facility] to seek care at the walk-in clinic. Locations [address] [facility] , [place] [address] ? [phone] [facility] [place] provides services to ages 18 and over. Open Thursday-Thursday: 8 a.m. to 5 p.m. and Thursday: 9 a.m. to 3 p.m.* *Hours may vary due to staffing availability. To confirm Walk-In Care hours in [place], please call [phone]. [address] [place] [address] ? [phone] [facility] in [place] provides services to ages 12 and over. Open Thursday-Thursday: 8 a.m. to 5 p.m. Hours may vary due to staffing availability. To confirm Walk-In Care hours in [place], please call [phone]. LABORATORY SERVICES: [facility] ? Primary Location [address] [place] [address] Thursday through Thursday 6:00 AM ? 5:00 PM Thursday 7:00 AM ? 11:00 AM* [phone] The [facility] is centrally located near the front entrance of the [facility] for easy outpatient access. Convenient parking is provided for outpatients. *Hours may vary due to staffing availability. To confirm Laboratory hours for any location, please call [phone]. Offsite Location For your convenience, we offer offsite laboratory draw stations at the following locations: [address] [place] [address] ? [address], [address] Thursday through Thursday 7:30 AM ? 1:00 PM* [phone] *Hours may vary due to staffing availability. To confirm Laboratory hours for any location, please call [phone]. [place] ? [address] Thursday through Thursday 6:00 AM ? 3:30 PM* Thursday 6:30 AM ? 3 PM* [phone] *Hours may vary due to staffing availability. To confirm Laboratory hours for any location, please call [phone] [place] [address] Thursday through Thursday 7:30 AM ? 4:00 PM* [phone] *Hours may vary due to staffing availability. To confirm Laboratory hours for any location, please call [phone] [place] [address] Thursday through 9:00 AM ? 4:00 PM* *Hours may vary due to staffing availability. To confirm Laboratory hours for any location, please call [phone]. Appointments are not necessary. Walk-ins are welcome. Like all the departments throughout the [facility], our Lab undergoes frequent reviews to ensure the quality and accuracy of test results, and our staff takes special pride in its status as a nationally accredited facility. Patient Portal: ONE PATIENT. ONE RECORD. BETTER CARE. [facility] has a fully integrated, cutting-edge mobile electronic health information system that has revolutionized the way we care for our patients and manage our organization. This system improves communication and coordination enabling us to provide safe, higher-quality care, and an overall positive experience for staff and patients. Our first priority, as always, is to deliver the highest quality care possible. The system is running in the background supporting that priority. This portal is for all [facility] services and practices. If you are experiencing any technical difficulties with enrolling or logging into the Patient Portal please complete the [facility] Patient Portal Technical Support Form. [facility] now offers a new secure on-line interactive tool for patients to review their health information ? ?Patient Portal. This interactive web portal will enable patients and their families to take an active role in their care by providing easy, secure access to their health information via the internet. The Patient Portal provides patients with instant access to their health information, including laboratory results, medications, allergies, demographic information, visit history, and more. In addition to managing their own care, parents and health care proxies with authorized consent will appreciate the ability to access the records of those individuals for whom they provide care. Please note: if you wish to gain access (Proxy) to another patient?s portal, you will be required to come to the Medical Records Department in person at [facility]. Both the patient giving proxy access and the proxy will need to provide photo identification and complete the appropriate authorization. The Patient Portal also allows track their appointments online. The [facility] Patient Portal also saves patients time by allowing them to submit updates to their demographic and contact information prior to their visits. Portal email notifications will also alert patients to any new activity on their portal, such as test results and new appointments. In order to initially enroll in the [facility] Patient Portal, you will need to enter some required information including the following: your [facility] Medical Record number your personal home email address name date of Please note: In order to enroll in the [facility] Patient Portal, we need to have your email address on file in your electronic medical record. ?The email address needs to be specific for one person (yourself) in order for your Portal enrollment to be successful. ?You can update your email address in person with our Registration staff when you are registering for a hospital visit. ?Otherwise, you will need to come to the Health Information Management (Medical Records) Department at [facility]. ?We are open from Thursday ? Thursday from 7:30 a.m. ? 4:30 p.m. ?You will be required to present a photo id. Once you have successfully enrolled in the Patient Portal, you will receive a one-time user id and password for the Portal, sent to your email address. ?This will allow you to log into the Patient Portal within 99 hrs and reset your own logon id and password, and define personal security questions. ?Once your permanent login and password have been set, you can log into the [facility] Patient Portal at any time via the blue button above or from the Portal Logon button on any page of the [facility] website. [facility] encourage all of our patients to enroll in Patient Portal as it presents a valuable opportunity for patients and their families to actively participate in their care and stay healthy Welcome to [facility]. ?We look forward to working with you. Health screenings for women You should visit your health care provider from time to time, even if you are healthy. The purpose of these visits is to: Screen for medical issues Assess your risk for future medical problems Encourage a healthy lifestyle Update vaccinations and other preventive care services Help you get to know your provider in case of an illness Information Even if you feel fine, you should still see your provider for regular checkups. These visits can help you avoid problems in the future. For example, the only way to find out if you have high blood pressure is to have it checked regularly. High blood sugar and high cholesterol levels also may not have any symptoms in the early stages. A simple blood test can check for these conditions. There are specific times when you should see your provider or receive specific health screenings. The [place] Preventive Services Task Force publishes a list of recommended screenings. Below are screening guidelines for women ages 18 to 39. BLOOD PRESSURE SCREENING Your blood pressure should be checked at least once every 3 to 5 years if: Your blood pressure is in the normal range (top number less than 120 mm Hg and bottom number less than 80 mm Hg) You don't have risk factors for high blood pressure Ask your provider if you need your blood pressure checked more often if: The top number is 120 to 129 mm Hg or the bottom number is 70 to 79 mm Hg You have diabetes, heart disease, kidney problems, are overweight, or have certain other health conditions You have a first-degree relative with high blood pressure You are Black You had high blood pressure during a If the top number is 130 mm Hg or greater or the bottom number is 80 mm Hg or greater, this is considered stage 1 hypertension. Schedule an appointment with your provider to learn how you can reduce your blood pressure. Watch for blood pressure screenings in your area. Ask your provider if you can stop in to have your blood pressure checked. BREAST CANCER SCREENING Experts do not agree about the benefits of breast self-exams in finding breast cancer or saving lives. Talk to your provider about what is best for you. A screening mammogram is not recommended for most women under age 40. Your provider may discuss and recommend mammograms, MRI scans, or ultrasounds if you have an increased risk for breast cancer, such as: A mother or sister who had breast cancer at a young age (most often starting screening earlier than the age the close relative was diagnosed) You carry a high-risk genetic marker CERVICAL CANCER SCREENING Cervical cancer screening should start at age 21 years unless your provider advises otherwise. After the first test: Women ages 21 through 29 should have a Pap test every 3 years. Exoprts do not agree on whether HPV testing is recommended for this age group. Women ages 30 through 65 should be screened with either a Pap test every 3 years or the HPV test every 5 years or both tests every 5 years (called cotesting ). Women who have been treated for precancer (cervical dysplasia) should continue to have Pap tests for 20 years after treatment or until age 65, whichever is longer. If you have had your uterus and cervix removed (total hysterectomy), and you have not been diagnosed with cervical cancer or precancer (high grade cervical neoplasia), you do not need cervical cancer screening. CHOLESTEROL SCREENING Cholesterol screening should begin at: Age 45 for women with no known risk factors for coronary heart disease Age 20 for women with known risk factors for coronary heart disease Repeat cholesterol screening should take place: Every 5 years for women with normal cholesterol levels More often if changes occur in lifestyle (including weight gain and diet) More often if you have diabetes, heart disease, kidney problems, or certain other conditions DIABETES SCREENING You should be screened for diabetes starting at age 35 and then repeated every 3 years if you have no risk factors for diabetes. Screening may need to start earlier and be repeated more often if you have other risk factors for diabetes, such as: You have a first degree relative with diabetes. You are overweight or have obesity. You have high blood pressure, prediabetes, or a history of heart disease. Screening for diabetes should be done if you are planning to become and you are overweight and have other risk factors such as high blood pressure. DENTAL EXAM Go to the dentist once or twice every year for an exam and cleaning. Your dentist will evaluate if you need more frequent visits. EYE EXAM Have an eye exam every 5 to 10 years before age 40. If you have vision problems, have an eye exam every 2 years or more often if recommended by your provider. You should have an eye exam that includes an examination of your retina (back of your eye) at least every year if you have diabetes. IMMUNIZATIONS Commonly needed vaccines include: Flu shot: get one every year. COVID-19 vaccine: ask your provider what is best for you. Tetanus-diphtheria and acellular pertussis (Tdap) vaccine: have one at or after age 19 as one of your tetanus-diphtheria vaccines if you did not receive it as an adolescent. Tetanus-diphtheria: have a booster (or Tdap) every 10 years. Varicella vaccine: receive 2 doses if you never had chickenpox or the varicella vaccine. Hepatitis B vaccine: receive 2, 3, or 4 doses, depending on your exact circumstances. Measles, mumps, and rubella (MMR) vaccine: receive 1 to 2 doses if you are not already immune to MMR. Your provider can tell you if you are immune. Ask your provider about the human papillomavirus (HPV) vaccine if: You have not received the HPV vaccine in the past You have not completed the full vaccine series (you should catch up on this shot) Ask your provider if you should receive other immunizations if you have certain health problems that increase your risk for some diseases such as pneumonia. INFECTIOUS DISEASE SCREENING Women who are sexually active should be screened for chlamydia and gonorrhea up until age 25. Women 25 years and older should be screened for chlamydia and gonorrhea if at high risk. Screening for hepatitis C: All adults ages 18 to 79 should get a one-time test for hepatitis C. people should be screened at every . Screening for human immunodeficiency virus (HIV): All people ages 15 to 65 should get a one-time test for HIV. Depending on your lifestyle and medical history, you may also need to be screened for infections such as syphilis and HIV, as well as other infections. PHYSICAL EXAM All adults should visit their provider from time to time, even if they are healthy. The purpose of these visits is to: Screen for disease Assess your risk of future medical problems Encourage a healthy lifestyle Update your vaccinations and other preventive care services Maintain a relationship with a provider in case of an illness Your height, weight, and BMI should be checked at every exam. During your exam, your provider may ask you about: Depression and anxiety Diet and exercise Alcohol and tobacco use Safety issues, such as using seat belts, smoke detectors, and intimate partner violence Your medicines and risk for interactions SKIN SELF-EXAM Your provider may check your skin for signs of skin cancer, especially if you're at high risk, such as if you: Have had skin cancer before Have close relatives with skin cancer Have a weakened immune system OTHER SCREENING Talk with your provider about colon cancer screening if you have a strong family history of colon cancer or polyps, or if you have had inflammatory bowel disease or polyps yourself. Routine bone density screening of women under 40 is not recommended. Coding Level of Care Code New Pt Prev Care 18-39yr(63538 Diagnoses Epilepsy G40.909 PVC (premature ventricular contraction) I49.3 Encounter for screening involving social determinants of health (SDoH) Z13.9 Nephrolithiasis N20.0 Cervical cancer screening Z12.4 Laboratory exam ordered as part of routine general medical examination Z00.00 Additional Codes ANT-7 Assessment Billing - ANT-7 Assessment Tool: ANT-7 Assessment [id number] ([id number])
== END 2024-05-09 11:55 | disposition home or self-care (01) ==
PROVIDERS: PCP Nurse Practitioner Family; Visit Provider Nurse Practitioner Family
DX: Z00.00 Encounter for general adult medical examination without abnormal findings (principal); G40.909 Epilepsy, unspecified, not intractable, without status epilepticus; I49.3 Ventricular premature depolarization; Z23 Encounter for immunization; N20.0 Calculus of kidney
CPT/HCPCS: 90471; 90715; 99385

== ENCOUNTER 2024-05-09 12:07 | Outpatient (REF) | payer OTHER, SELFPAY ==
[2024-05-09 14:26] LABS: Hematocrit 41.2 % (37.0-47.0); Hemoglobin 13.4 g/dl (12.0-16.0); Mean Corpuscular HGB Conc 32.5 g/dl (31.0-35.0); Mean Corpuscular Hemoglobin 28.1 pg (27.0-33.0); Mean Corpuscular Volume 86.4 fL (80.0-98.0); Mean Platelet Volume 10.5 fL (9.4-12.3); Platelet Count 430 X10*3/uL (160-400); Red Blood Count 4.77 X10*6/uL (4.20-5.50); Red Cell Distribution Width 13.6 % (11.0-16.0); White Blood Count 9.2 X10*3/uL (4.8-10.8)
[2024-05-09 14:53] LABS: Creatinine Urine 143.89 mg/dL; Microalbum/Creatinine Ratio Ur 6.2 ug/mg cr (<30)
[2024-05-09 14:57] LABS: Alanine Aminotransferase 16 U/L (0-31); Albumin Level 4.2 g/dL (3.5-5.0); Alkaline Phosphatase 55 U/L (39-117); Anion Gap 10 (12-20); Aspartate Amino Transferase 20 U/L (5-31); Bilirubin Total 0.2 mg/dL (0.0-1.0); Blood Urea Nitrogen 10 mg/dL (9-16); Calcium 9.6 mg/dL (8.4-10.2); Carbon Dioxide 26 mmol/L (22-29); Chloride 105 mmol/L (96-108); Estimated Glomerular Filt Rate > 60; Glucose Random 89 mg/dL (60-115); Sodium 137 mmol/L (135-145); Total Protein 7.8 g/dL (6.5-8.0)
[2024-05-09 14:58] LABS: Estimated Average Glucose 103 mg/dL; Hemoglobin A1c % 5.2 % (<6.0)
[2024-05-09 15:13] LABS: Vitamin D 25-OH Total 24.9 ng/mL (>30)
[2024-05-09 15:32] LABS: Folate 5.4 ng/mL (> or = 4.0); Vitamin B12 344 pg/mL (200-900)
[2024-05-10 22:29] LABS: LDL Cholesterol Direct 158 mg/dL (<100)
== END 2024-05-09 12:08 | disposition home or self-care (01) ==
LOC: HO.WFDLDS 12:07
PROVIDERS: Visit Provider Nurse Practitioner Family
DX: Z00.00 Encounter for general adult medical examination without abnormal findings (principal)
CPT/HCPCS: 36415; 80053; 82043; 82306; 82570; 82607; 82746; 83036; 83721; 84443; 85027

== ENCOUNTER 2024-07-06 14:43 | Outpatient (AMB) | payer OTHER, SELFPAY ==
--- NOTE | 2024-07-06 14:50 | A.OFFVIS_ITS ---
Intake Visit Reasons: history of kidney stones Intake Note: Patient is present for Hx of kidney stones She was last seen in Urology in 2021 Currently patient states that she has pain on her Right flank side She has not had a recent ultrasound Stars Coordinator Required: No Accompanied by: Self / Same As Patient Allergies No Known Allergies Allergy (Verified 07/06/24 14:58) HPI Comments Details: Arleth very pleasant female. She is seen for the following urologic conditions - nephrolithiasis Last seen 2020 Possible UTI - UA with positive leuks, positive blood No dysuria currently Feeling she might have a UTI brewing Will give Macrobid for 5 days Plan renal ultrasound for kidney stones Nephrolithiasis Imaging - 05/29 CT Scan - left proximal ureteric stone 3 mm - 08/30 Renal US - normal Had been encouraged to increase fluids PFSH Medical History Nephrolithiasis Otitis media, right Encounter to establish care Epilepsy Surgical History History of appendectomy Family History Mother Cervical cancer Father Diabetes High blood pressure Gum disease Other Mental health disorder Social History Housing: House Alcohol intake: current Alcohol intake frequency: holidays/special occasions only Patient Tobacco Use Status: Never used Tobacco e-Cigarette/Vaping Use: Never Used Second Hand Smoke Exposure: No service: No Current occupational status: employed Current occupation: Food services, [employer] Cognitive needs: No Hearing needs: No Vision needs: No Review of Systems Const Denies chills and Denies fever(s) Card Reports no additional complaints and Denies syncope Resp Denies cough GI Denies abdominal pain and Denies heartburn Reports as per HPI and Denies change in libido Neuro Denies syncope Psych Denies change in libido Endo Denies change in libido Physical Exam Const General: cooperative, healthy appearing, comfortable and no acute distress Orientation/consciousness: patient oriented x3 HEENT Face and sinus: Yes normal facial exam Mouth: moist mucous membranes Neck Neck: Yes normal visual inspection, Yes full ROM and Yes trachea midline Chest Chest palpation & inspection: normal inspection of the chest Resp Effort & Inspection: normal respiratory effort, able to speak in complete sentences and no respiratory distress GI Inspection: Yes normal to inspection Back/Spine/Pelvis Cervical Spine: normal cervical lordosis Thoracic/Lumbar Spine: thoracic and lumbar spine normal to inspection Skin General skin exam: no rashes or lesions noted Neuro General: patient oriented x3, gait normal, tone normal and moves all extremities Extrem General: Yes normal to inspection and Yes capillary refill normal Results AMB Urinalysis, Automated UA Leukoctes 125 Xiao/uL Last Edit by Sarah Jennings [facility] on 07/06/24 15:04 UA Nitrite Negative Last Edit by Sarah Jennings A on 07/06/24 15:04 UA Urobilinogen 0.2 mg/dL Last Edit by Sarah Jennings A on 07/06/24 15:0 4 UA Protein 30 mg/dL Last Edit by Sarah Jennings A on 07/06/24 15:04 UA pH 6.0 Last Edit by Sarah Jennings [facility] on 07/06/24 15:04 UA Blood 200 Sergio/uL Last Edit by Sarah Jennings A on 07/06/24 15:04 UA Specific [place] 1.025 Last Edit by Sarah Jennings [facility] on 07/06/24 15: 04 UA Ketone Positive Last Edit by Sarah Jennings [facility] on 07/06/24 15:04 UA Bilirubin 0 mg/dL Last Edit by Sarah Jennings A on 07/06/24 15:04 UA Glucose 0 mg/dL Last Edit by Sarah Jennings [facility] on 07/06/24 15:04 Results Reviewed Results Reviewed: Laboratory Last Values Urine pH (Auto) 6.0 07/06/24 14:58 Specific [place] (Auto) 1.025 07/06/24 14:58 Urine Protein (Auto) 30 mg/dL 07/06/24 14:58 Glucose (UA)(Auto) 0 mg/dL 07/06/24 14:58 Urine Ketones (Auto) Positive 07/06/24 14:58 Urine Blood (Auto) 200 Sergio/uL 07/06/24 14:58 Urine Nitrite (Auto) Negative 07/06/24 14:58 Urine Bilirubin (Auto) 0 mg/dL 07/06/24 14:58 Urine Urobilinogen (Auto) 0.2 mg/dL 07/06/24 14:58 Leukocyte Esterase (Auto) 125 Xiao/uL 07/06/24 14:58 Assessment & Plan Assessment & Plan (1) UTI (urinary tract infection), bacterial: Code(s): N39.0 - Urinary tract infection, site not specified; A49.9 - Bacterial infection, unspecified Category: Medical (2) Nephrolithiasis: Code(s): N20.0 - Calculus of kidney Category: Medical Plan Six-month follow-up imaging as practitioner Orders: Orders AMB Urinalysis Automated Today Z13.9 - Encounter for screening, unspecified Medications: New nitrofurantoin macrocrystal must administer with a meal/food 100 mg PO BID 5 days 10 caps 0RF A49.9 - Bacterial infection, unspecified, N39.0 - Urinary tract infection, site not specified Patient Instructions: Imaging studies, laboratory and physical exam results were discussed and reviewed in detail. No major barriers to patient understanding were identified. An opportunity to ask questions regarding the treatment plan was provided. All questions were answered. The patient expressed understanding and agreement with the above treatment plan. The patient is aware they should contact our office by phone for worsening of their current condition or the appearance of new urologic symptoms. Compliance is encouraged with any medications and followup testing that is ordered. It is a privilege to participate in the urologic care of your patient. If you have any questions or concerns regarding treatment for the above conditions, or other urologic issues, please do not hesitate to contact me. The office telephone contact is [phone]. This note is constructed using voice recognition software. While every effort has been made to ensure accuracy lithographers printer errors may have been included. Yours sincerely, Dr Steve Silva MD, [facility] - Urology Providers of Expert, Compassionate Care for the Genitourinary System Coding Level of Care Code New Pt Level 3 (49524) Diagnoses UTI (urinary tract infection), bacterial N39.0; A49.9 Nephrolithiasis N20.0
== END 2024-07-06 15:20 | disposition home or self-care (01) ==
PROVIDERS: PCP Nurse Practitioner Family; Visit Provider Urology
DX: N39.0 Urinary tract infection, site not specified (principal); A49.9 Bacterial infection, unspecified; N20.0 Calculus of kidney; Z13.9 Encounter for screening, unspecified
CPT/HCPCS: 99203

== ENCOUNTER → 2024-07-06 14:43 | Outpatient (BNVA) | payer OTHER, SELFPAY | PROVIDERS: PCP Nurse Practitioner Family; Visit Provider Urology | DX: N39.0 Urinary tract infection, site not specified (principal); A49.9 Bacterial infection, unspecified; N20.0 Calculus of kidney | CPT/HCPCS: 81003 ==

== ENCOUNTER 2024-08-15 14:46 | Outpatient (AMB) | payer OTHER, SELFPAY ==
[2024-08-15 14:57] VITALS: BP 126/62; PULSE 82; BMI 62.3
--- NOTE | 2024-08-15 14:57 | A.OFFVIS_ITS ---
Vital Signs 08/15/24 14:57 Height 4 ft 11 in Weight 308 lb 10.354 oz BMI 62.3 BP 126/62 Blood Pressure Location Lt brachial Position Sitting Pulse 82 Pulse Source Monitor Intake Visit Reasons: HOU[employer] RE[employer]IG[employer] MECH[employer]IC/O'Jamie/Ventricular premature depolarization Allergies No Known Allergies Allergy (Verified 07/06/24 14:58) Medication List - Last Reconciled 08/15/24 by Ebenezer Dial MD albuterol sulfate 90 mcg/actuation (Ventolin HFA) 2 puffs inhalation Q4-6H PRN cholecalciferol (vitamin D3) 125 mcg PO DAILY HPI Comments Details: Arleth is here for consultation regarding palpitations. She states that she used to be seen by pediatric cardiology-Dr. Oli Godinez in [place]. She states that she has been having palpitations since age of 8 or so. She saw cardiology intermittently. She has done testing like Holter and probably echocardiogram as well but she is not aware of any other findings. For the most part she is doing fine. Still gets some palpitations off and on. She is clearly obese. She states she is having a sleep study coming up. [facility] Medical History Nephrolithiasis Otitis media, right Encounter to establish care Epilepsy Surgical History History of appendectomy Family History Mother Cervical cancer Father Diabetes High blood pressure Gum disease Other Mental health disorder Social History Housing: House Alcohol intake: current Alcohol intake frequency: holidays/special occasions only Patient Tobacco Use Status: Never used Tobacco e-Cigarette/Vaping Use: Never Used Second Hand Smoke Exposure: No service: No Current occupational status: employed Current occupation: Food services, [employer] Cognitive needs: No Hearing needs: No Vision needs: No Review of Systems Const Denies weakness ENT Denies dizziness Card Reports chest pain, Denies chest pain with activity, Denies syncope, Denies rapid heart rate, Denies pedal edema, Denies edema, Denies leg edema, Denies lightheadedness, Reports palpitations, Denies dyspnea, Denies dyspnea on exertion and Denies orthopnea Resp Denies cough, Denies dyspnea and Denies dyspnea on exertion GI Denies hematochezia and Denies change in stool character Musc Denies abnormal gait, Denies muscle cramps, Denies muscle weakness, Denies numbness, Denies radiating pain into limb and Denies tingling Neuro Denies abnormal gait, Denies dizziness, Denies syncope, Denies numbness, Denies tingling and Denies weakness Endo Reports palpitations Physical Exam Vital Signs: Last Vital Signs Pulse 82 08/15/24 14:57 BP 126/62 08/15/24 14:57 BMI result Body Mass Index 62.3 Office Procedures EKG Details: EKG with underlying sinus rhythm at 82/Min; sinus arrhythmias; rightward axis; no significant ST-T changes; [place] [id number], Complete Assessment & Plan Assessment & Plan (1) Heart palpitations: Code(s): R00.2 - Palpitations Category: Medical Plan We will request records from pediatric Cardiology. We will start with an echocardiogram and Holter monitor. Per patient, she is scheduled for a sleep study and that seems reasonable as there is a correlation between obstructive sleep apnea and cardiac arrhythmias. We will follow-up after the above. Orders: Orders ECG 3 day holter monitor Today R00.2 - Palpitations CA echo transthoracic complete Today R00.2 - Palpitations Coding Level of Care Code New Pt Level 3 (39445) Diagnoses Heart palpitations R00.2 CPT Codes EKG - CPT: 12997-[id number], Complete ([id number])
== END 2024-08-15 15:28 | disposition home or self-care (01) ==
PROVIDERS: PCP Nurse Practitioner Family; Visit Provider Internal Medicine
DX: R00.2 Palpitations (principal)
CPT/HCPCS: 93010; 99203

== ENCOUNTER → 2024-08-15 14:46 | Outpatient (BNVA) | payer OTHER, SELFPAY | PROVIDERS: PCP Nurse Practitioner Family; Visit Provider Internal Medicine | DX: R00.2 Palpitations (principal) | CPT/HCPCS: 93005 ==

== ENCOUNTER 2024-08-26 12:49 | Outpatient (REF) | payer OTHER, SELFPAY ==
--- NOTE | ~2024-08-26 | MR_ITS ---
EXAMINATION: MR BRAIN WITHOUT CONTRAST CLINICAL INFORMATION: Blurred vision. COMPARISON: None available. TECHNIQUE: MRI of the brain was obtained using routine sequences without contrast. FINDINGS: Limited moderately motion degraded exam. No no demonstrated focal restricted diffusion is demonstrated to suggest acute or subacute cerebral ischemia. No evidence of acute or chronic hemorrhagic products on heme-sensitive imaging. No overtly demonstrated parenchymal signal abnormalities. The ventricles are normal in morphology and size. No abnormal mass effect. No midline shift. The sella turcica is slightly shallow with partial flattening of the pituitary gland. The suprasellar cistern remains widely patent. Normal positioning of the cerebellar tonsils. Normal arterial and venous vascular flow voids are present. Normal, homogeneous marrow signal. Mild mucosal thickening of the paranasal sinuses. No signal abnormalities within the mastoids. No demonstrated abnormalities of the orbits on limited evaluation. MR/MR head/brain wo con IMPRESSION: Limited moderately motion degraded exam. Within the limitations of this exam, there is no demonstrated acute intracranial abnormalities. No demonstrated abnormal mass effect. Electronically signed by: Roly Mitchell DO 10/19/2024 04:40 AM EST
== END 2024-08-26 12:50 | disposition home or self-care (01) ==
LOC: HO.MRI 12:49
PROVIDERS: PCP Nurse Practitioner Family; Visit Provider Ophthalmology
DX: G93.2 Benign intracranial hypertension (principal)
CPT/HCPCS: 70551

== ENCOUNTER → 2024-09-14 13:43 | Outpatient (REF) | payer OTHER, SELFPAY ==
--- NOTE | 2024-09-14 13:59 | HM_ITS ---
* Total monitoring time 3 days. * Underlying rhythm is sinus with an average rate of 90/Min. About 21% of the time, rate > 100/Min. * Rare supraventricular ectopy. One episode of possible SVT versus sinus tachycardia But less than a minute. * Rare ventricular ectopy. * No significant pauses or high-grade AV blocks. * No patient markers or diary events. MTDD
--- NOTE | 2024-09-14 13:59 | CA_ITS ---
Transthoracic Echocardiogram Patient (Last, First, Middle): Arleth Talley L Gender: Female Date of : 2000 Age: 24 Procedure Date: 09/14/2024 Procedure Type: Transthoracic Echocardiogram Location: OP Height: 149.86 cm Weight: 140.62 kg BSA: 2.22 m2 Heart Rate: bpm BP: 130 / 80 mmHg Personnel Specialist: Referring MD: Ebenezer Dial MD Cushion Stuffer: Ian Mcclendon MD Symptoms: R00.2 - Palpitations Study Quality: Adequate ECG Rhythm: Sinus Conclusions: - Essentially normal study with trivial pericardial effusion Findings Left Ventricle Normal left ventricular size, thickness, and systolic function. The visually estimated ejection fraction is between 55-60%. Regional wall motion abnormalities can not be excluded due to suboptimal endocardial definition. Spectral Doppler is indicative of a normal filling pattern. Right Ventricle Normal right ventricular cavity size and systolic function. Atria The left atrium is normal in size. Interatrial shunt cannot be excluded. The right atrium is normal in size. Aortic Valve The aortic valve structure and function is likely normal. There is no aortic valve stenosis. There is no aortic valve regurgitation. Mitral Valve Normal mitral valve structure and function. There is trace mitral valve regurgitation. There is no mitral valve stenosis. Pulmonic Valve The pulmonic valve was not well visualized. Tricuspid Valve Likely normal tricuspid valve structure and function. Tricuspid regurgitation envelope is inadequate for calculation of right ventricular systolic pressure. Normal right atrial pressure. Great Vessels All visible segments of the aorta are normal in size. The pulmonary artery was not well visualized. Venous The inferior vena cava is normal in size and collapses greater than 50% with inspiration. Pericardium/Pleural There is a trivial pericardial effusion. Prior Study Comparison No prior study available for comparison. Measurements 2D Linear Measurements IVSd: 1.06 0.6-0.9/0.6-1.0 cm LVIDd: 4.54 3.9-5.3/4.2-5.9 cm LVIDd Index: 2.05 2.4-3.2/2.2-3.1 cm/m2 LVIDs: 2.89 2.0-3.6 cm LVPWd: 1.03 0.7-1.1 cm Ao Root: 2.40 2.1-3.5 cm LA Diam: 3.40 2.7-3.8/3.0-4.0 cm LAIDs Index: 1.53 1.5-2.3 cm/m2 LV Mass: 205.77 67-162/88-224 g LV Mass Index: 92.69 43-95/49-115 g/m2 LVOT Diam: 2.20 3.0+(-)1.3 cm Mitral Valve MV Pk E: 1.04 MV PK A: 0.59 MV Decel Time: 131.00 E/A: 1.80 E'Lateral: 14.90 E'Medial: 11.70 E/E' Med: 8.90 E/E' Lat: 7.00 PHT: 38.00 MVA PHT: 5.79 Decel Peach: 7.94 Aortic Valve AoV Pk Lasha: 1.19 AoV Mn Lasha: 0.82 AoV VTI: 0.23 AoV Pk Grad: 6.00 Aov Mn Grad: 3.00 SHABBIR Cont.VTI: 3.63 LVOT LVOT Pk Lasha: 1.08 LVOT Mn Lasha: 0.80 LVOT VTI: 0.22 LVOT Pk Grad: 5.00 LVOT Mn Grad: 3.00 LVOT Diam: 2.20 LVOT Area: 3.80 Diastolic Function MV Pk E: 1.04 MV Pk A: 0.59 E/A: 1.80 E'Medial: 11.70 E/E' Med: 8.90 E' Laterial: 14.90 E/E' Lat: 7.00 Right Ventricle TAPSE (mm): 29.00 TVS' Lasha: 12.80 Tricuspid Valve TR Pk Lasha: 2.07 TR Pk Grad: 17.00 Great Vessels Aorta Ao Root-2D: 2.40 2.0-3.7 cm Ao Asc: 2.30 2.1-3.4 cm Pulmonary Valve PV Pk Lasha: 1.05 Peak PV Grad: 4.00 Updated in Other Vendor System with Status of Final Ian Mcclendon MD electronically signed on 09/15/2024 12:50:46 PM with status of Final
== END ==
LOC: HO.CARD 13:43
PROVIDERS: PCP Nurse Practitioner Family; Visit Provider Internal Medicine
DX: R00.2 Palpitations (principal)
CPT/HCPCS: 93242; 93306

== ENCOUNTER → 2024-09-14 13:59 | Outpatient (BNV) | payer OTHER, SELFPAY | PROVIDERS: PCP Nurse Practitioner Family; Visit Provider Internal Medicine Cardiovascular Disease | DX: I49.3 Ventricular premature depolarization (principal) | CPT/HCPCS: 93244; 93306 ==

== ENCOUNTER 2024-10-21 08:44 | Outpatient (AMB) | payer OTHER, SELFPAY ==
--- NOTE | 2024-10-21 08:51 | A.OFFPC_ITS ---
Vital Signs 10/21/24 08:55 Height 4 ft 11 in Weight 314 lb 6 oz BMI 63.5 BP 118/70 Blood Pressure Location Rt brachial Position Sitting Respiration 14 Pulse 86 Pulse Source Pulse Oximeter Pulse Oximetry (%) 96 Oxygen Delivery Method Room Air Intake Visit Reasons: follow up asthma and vit d Intake Note: follow up on asthma and vitamin d Commercial Loan Assistant Required: No Allergies No Known Allergies Allergy (Verified 10/21/24 09:13) Medication List - Last Reconciled 10/21/24 by Aster Bellamy, SYSTEM SUPPORT DEVELOPER- albuterol sulfate 90 mcg/actuation (Ventolin HFA) 2 puffs inhalation Q4-6H PRN cholecalciferol (vitamin D3) 125 mcg PO DAILY Tobacco use date assessed: 05/09/24 Dental Screening Dental Screen Date: 05/09/24 HPI HPI Comments History of Present Illness Details 24-year-old female vitamin-D deficiency, morbid obesity, asthma, generalized anxiety disorder, MDD, nephrolithiasis, epilepsy generalized anxiety, diverticulosis, umbilical hernia, atrial ectopy, hyperlipidemia status post appendectomy Health Maintenance: ? PAP 2021 @ [facility] ? Tdap 05/2024 Echo 09/14/24 trivial pericardial effusion, MV regurg, EF 55-60% Holter 09/14/24 Underlying rhythm is sinus with an average rate of 90/Min. About 21% of the time, rate > 100/Min, Rare supraventricular ectopy. One episode of possible SVT versus sinus tachycardia But less than a minute. Specialists: [facility] [place] [facility] 08/2024, will be undergoing LP Nov [address] Swift April 2024 History of Present Illness The patient is a 24-year-old female presenting for a follow-up on asthma and vitamin D deficiency. She reports seeing her eye doctor, Dr. Swift in April, who identified exophthalmos and recommended further evaluation. An MRI Brain was performed, and a neurologist confirmed clear results; however, a lumbar puncture is scheduled to address recurrent fluid in the brain, a condition the patient experienced during childhood. Additionally, the patient followed up with her ip counsel, who noted episodes of tachycardia but deemed them non-concerning. Heart evaluations, including an echocardiogram and Holter monitor, were reviewed and deemed normal. Regarding her vitamin D deficiency, the patient was supposed to be on a regimen of 5000 IU based on low levels from summer bloodwork, but she did not receive the supplement. The patient is also being monitored for hypercholesterolemia, and there is a pending lab follow-up. She is referred to nutrition but has not made appt yet. She has a history of a kidney stone incident and a planned renal ultrasound to further investigate. Sleep study scheduled and pending. Was not able to get into counseling yet; remains interested. Despite many scheduled and planned interventions, time constraints have limited her ability to follow up on all referrals. Physical Exam Awake alert NAD Ears: Tympanic membranes intact and clear bilaterally Nose: Nares patent, turbinates within normal limits, no sinus tenderness with palpation bilaterally Throat: Moist mucosa membrane, pharynx within normal limits RRR LS CTAB No edema BLE Mood and affect appropriate Results Labs from today show improved LDL was 158 it was now 144 worsening vitamin-D now 20.6 was 24.9 Plan - Arrange blood work today for repeat ch olesterol and vitamin D level assessment. - Start Vit D3 5000IU QD. - Neurologist will conduct a lumbar punc ture for fluid assessment in the brain. - Follow-up with cardiology in six month s to monitor episodes of tachycardia. - Schedule a renal ultrasound for furthe r evaluation of kidney stones. - Counseling referral placed for anxiety and depression with contact from [facility]. - Nutrition referral advised for hyperch olesterolemia management. Patient was informed and verbally consented to the use of an ambient scribe for clinic note documentation during this visit. Discussion Notes I discussed the importance of monitoring and managing asthma and vitamin D deficiency. We talked about the significance of upcoming diagnostic tests, including the lumbar puncture for fluid accumulation, and reviewed heart health, reinforcing the need for follow-up with cardiology. I recommended reassessing the vitamin D therapy based on today's labs and emphasized the need to manage cholesterol levels through dietary consultation. We also explored mental health support, arranging virtual counseling services to accommodate her needs. Follow- up for scheduled kidney stone ultrasound was highlighted to ensure proper diagnostics. Patient Instructions - Get blood work done today. - Follow up with blood results via the p [employer] portal for further guidance on vitamin D. - Contact radiology to arrange renal ult rasound. - Coordinate for counseling services. - Schedule a six-month physical follow-u p at the front desk auxiliary. - Call and consult with a security orderly r egarding cholesterol management. - Utilize a humidifier to alleviate pote ntial dry eye symptoms; consider eye drops if symptoms persist. RTO 6 MONTHS CPE, SOONER PRN This note is constructed using voice recognition software. While every effort has been made to ensure accuracy in railroad police officer, still errors may have been included Sometimes, these errors may affect the content or meaning of the given sentence . Total time spent caring for the patient today was 45 minutes. This includes time spent before the visit reviewing the chart, time spent during the visit, and time spent after the visit on documentation [facility] Medical History Nephrolithiasis Otitis media, right Encounter to establish care Epilepsy Surgical History History of appendectomy Family History Mother Cervical cancer Father Diabetes High blood pressure Gum disease Other Mental health disorder Social History Housing: House Alcohol intake: current Alcohol intake frequency: holidays/special occasions only Patient Tobacco Use Status: Never used Tobacco e-Cigarette/Vaping Use: Never Used Second Hand Smoke Exposure: No service: No Current occupational status: employed Current occupation: Food services, [employer] Cognitive needs: No Hearing needs: No Vision needs: No Questionnaire PHQ-9 Over the last 2 weeks, how often have you been bothered by any of the following problems? 1. Little interest or pleasure in doing things: not at all 2. Feeling down, depressed, or hopeless: not at all 3. Trouble falling or staying asleep, or sleeping too much: more than half the days 4. Feeling tired or having little energy: more than half the days 6. Feeling bad about yourself - or that you are a failure or have let yourself or your family down: not at all 7. Trouble concentrating on things, such as reading the newspaper or watching television: not at all 8. Moving or speaking so slowly that other people could have noticed. Or the opposite - being so fidgety or restless that you have been moving around a lot more than usual: not at all 9. Thoughts that you would be better off or of hurting yourself in some way: not at all 11078 - PHQ-9 Billing: Yes Source: Developed by Drs. Simeon Mendoza, Cathi Goncalves, Ernie Carolina and colleagues, with an educational luigi from [email or web address]. Thrive Questionnaire Date Thrive assessed: 10/21/24 I am a: Patient What is your living situation today?: I have a steady place to live Within the past 12 months, did the food you bought not last and you didn't have the money to get more?: Never true Within the past 12 months, did you worry whether your food would run out before you got money to buy more?: Never true Do you have trouble paying for medicines?: Yes Do you have trouble getting transportation to medical appointments?: Yes Do you have trouble paying your heating and electricity bill?: No Do you have trouble taking care of your child, family member or friend?: No Do you have trouble with day-to-day activities such as bathing, preparing meals, shopping, managing finances, etc.?: No Are you currently unemployed and looking for a job?: No Are you interested in more education?: Yes Please select the resources that you would like help with: None Currently or been in a relationship where the following occur: No concerns reported THRIVE Score: 1 AUDIT C Alcohol Use Questionnaire (AUDIT-C) 1. How often do you have a drink containing alcohol?: Monthly or less 2. How many drinks containing alcohol do you have on a typical day when you are drinking?: 1 or 2 3. How often do you have six or more drinks on one occasion?: Never Total Score: 1 ANT-7 AMB Questionnaire ANT-7 Date ANT - 7 assessed: 10/21/24 Feeling nervous, anxious, or on edge: 3 = Nearly every day Not being able to stop or control worryin = More than half the days Worrying too much about different things: 2 = More than half the days Trouble relaxin = Not at all Being so restless that it is hard to sit still: 0 = Not at all Becoming easily annoyed or irritable: 0 = Not at all Feeling afraid as if something awful might happen: 0 = Not at all Total ANT-7 score (0-4 normal; 5-9 mild; 10-14 moderate; 15-21 severe): 7 Source: Developed by Drs. Simeon Mendoza, Cathi Goncalves, Ernie Carolina and colleagues, with an educational luigi from [email or web address]. ANT-7 Assessment Billing ANT-7 Assessment Tool: ANT-7 Assessment 16101 ACT Questionnaire In the past 4 weeks, how much of the time did your asthma keep you from getting as much done at work, school or at home?: A little of the time During the past 4 weeks, how often have you had shortness of breath?: More than once a day During the past 4 weeks, how often did your asthma symptoms wake you up at night or earlier than usual in the morning?: Not at all During the past 4 weeks, how often have you had to use your rescue inhaler or nebulizer medication?: Once a week or less How would you rate your asthma control during the past 4 weeks?: Well controlled Score: 18 Physical exam (Primary Care) Vital Signs: Last Vital Signs Pulse 86 10/21/24 08:55 Resp 14 10/21/24 08:55 BP 118/70 10/21/24 08:55 Pulse Ox 96 10/21/24 08:55 Oxygen Delivery Method Room Air 10/21/24 08:55 BMI result Body Mass Index 63.5 Tobacco/Smoking Status: Tobacco use Status Tobacco use date assessed 05/09/24 10/21/24 08:57 Patient Tobacco Use Status Never used Tobacco 10/21/24 08:57 e-Cigarette/Vaping Use Never Used 10/21/24 08:57 Thrive Assessment: Date of Thrive Assessment Date Thrive assessed 10/21/24 10/21/24 08:57 Currently or been in a relationship where the following occur: No concerns reported Coding Level of Care Code Est Pt Level 5 (47673) Complex EM visit Add On G2211 Diagnoses Mixed hyperlipidemia E78.2 Hyperlipidemia type: mixed hyperlipidemia Moderate episode of recurrent major depressive disorder F33.1 Major depression episode severity: moderate Morbid obesity with BMI of 50.0-59.9, adult E66.01; Z68.43 Atrial ectopic tachycardia I47.19 Generalized anxiety disorder F41.1 Low vitamin D level R79.89 Influenza vaccination declined Z28.21 Allergic conjunctivitis of both eyes H10.13 Laterality: bilateral Additional Codes ANT-7 Assessment Billing - ANT-7 Assessment Tool: ANT-7 Assessment 77709 ([id number]) PHQ-9 - 05397 - PHQ-9 Billing: Yes ([id number]) Assessment & Plan Assessment & Plan (1) Hyperlipidemia: Comment: 05/2024 LDL 158 Code(s): E78.5 - Hyperlipidemia, unspecified Category: Medical Qualifiers: Hyperlipidemia type: mixed hyperlipidemia Qualified Code(s): E78.2 - Mixed hyperlipidemia (2) MDD (major depressive disorder), recurrent episode: Code(s): F33.9 - Major depressive disorder, recurrent, unspecified Category: Medical Qualifiers: Major depression episode severity: moderate Qualified Code(s): F33.1 - Major depressive disorder, recurrent, moderate (3) Morbid obesity with BMI of 50.0-59.9, adult: Code(s): E66.01 - Morbid (severe) obesity due to excess calories; Z68.43 - Body mass index [BMI] 50.0-59.9, adult Category: Medical (4) Atrial ectopic tachycardia: Code(s): I47.19 - Other supraventricular tachycardia Category: Medical (5) Generalized anxiety disorder: Code(s): F41.1 - Generalized anxiety disorder Category: Medical (6) Low vitamin D level: Code(s): R79.89 - Other specified abnormal findings of blood chemistry Category: Medical (7) Influenza vaccination declined: Code(s): Z28.21 - Immunization not carried out because of patient refusal Category: Medical (8) Allergic conjunctivitis: Code(s): H10.10 - Acute atopic conjunctivitis, unspecified eye Category: Medical Qualifiers: Laterality: bilateral Qualified Code(s): H10.13 - Acute atopic conjunctivitis, bilateral Plan . Orders: Orders Vitamin D 25-OH Total Today E78.5 - Hyperlipidemia, unspecified, R79.89 - Other specified abnormal findings of blood chemistry Lipid Panel Today E78.5 - Hyperlipidemia, unspecified, R79.89 - Other specified abnormal findings of blood chemistry Referrals Counseling Referral F33.9 - Major depressive disorder, recurrent, unspecified, F41.1 - Generalized anxiety disorder Medications: Refilled cholecalciferol (vitamin D3) 125 mcg PO DAILY 90 caps 2RF
[2024-10-21 08:55] VITALS: BP 118/70; PULSE 86; RESP 14; O2SAT 96; BMI 63.5
== END 2024-10-21 09:25 | disposition home or self-care (01) ==
PROVIDERS: PCP Nurse Practitioner Family; Visit Provider Nurse Practitioner Family
DX: I47.19 Other supraventricular tachycardia (principal); F33.1 Major depressive disorder, recurrent, moderate; E66.01 Morbid (severe) obesity due to excess calories; Z68.43 Body mass index [BMI] 50.0-59.9, adult; E78.2 Mixed hyperlipidemia; F41.1 Generalized anxiety disorder; R79.89 Other specified abnormal findings of blood chemistry; Z28.21 Immunization not carried out because of patient refusal; H10.13 Acute atopic conjunctivitis, bilateral

== ENCOUNTER → 2024-10-21 08:44 | Outpatient (BNVA) | payer OTHER, SELFPAY | PROVIDERS: PCP Nurse Practitioner Family; Visit Provider Nurse Practitioner Family | DX: E78.2 Mixed hyperlipidemia (principal); F33.1 Major depressive disorder, recurrent, moderate; E66.01 Morbid (severe) obesity due to excess calories; Z68.43 Body mass index [BMI] 50.0-59.9, adult; I47.19 Other supraventricular tachycardia; F41.1 Generalized anxiety disorder; E55.9 Vitamin D deficiency, unspecified; H10.13 Acute atopic conjunctivitis, bilateral; Z28.21 Immunization not carried out because of patient refusal | CPT/HCPCS: 96127; 96160 ==

== ENCOUNTER 2024-10-21 09:41 | Outpatient (REF) | payer OTHER, SELFPAY ==
[2024-10-21 11:41] LABS: Cholesterol 198 mg/dL (<200); HDL Cholesterol 38 mg/dL (>40); LDL Cholesterol Calculated 144 mg/dL (<100); Triglycerides 80 mg/dL (<150)
[2024-10-21 11:53] LABS: Vitamin D 25-OH Total 20.6 ng/mL (>30)
== END 2024-10-21 09:42 | disposition home or self-care (01) ==
LOC: HO.WFDLDS 09:41
PROVIDERS: Visit Provider Nurse Practitioner Family
DX: R79.89 Other specified abnormal findings of blood chemistry (principal); E78.5 Hyperlipidemia, unspecified
CPT/HCPCS: 36415; 80061; 82306

== ENCOUNTER 2024-11-17 14:26 | Outpatient (AMB) | payer OTHER, SELFPAY ==
[2024-11-17 14:38] VITALS: BMI 63.4
--- NOTE | 2024-11-17 14:38 | A.OFFVIS_ITS ---
Vital Signs 11/17/24 14:38 Height 4 ft 11 in Weight 314 lb BMI 63.4 Intake Visit Reasons: [id number], unspecified, not Intake Note: Patient presents for epilepsy Allergies No Known Allergies Allergy (Verified 11/17/24 14:39) Medication List - Last Reconciled 11/17/24 by Kym De Leon MD albuterol sulfate 90 mcg/actuation (Ventolin HFA) 2 puffs inhalation Q4-6H PRN cholecalciferol (vitamin D3) 125 mcg PO DAILY HPI Comments Details: 24y/o female comes for further management of seizure disorder.Her seizures started at age 7 and stopped at age 15 . she was on medications until she was 16. She describes seizures as passing out episodes with generalized shaking, urinary incontinence , tongue and cheek biting followed by confusion. she also had minor staring episodes.The seizures were 1/month and as she got older they became infrequent . In February 2024 she woke up shaking , startled , urinary incontinence , mouth was sore , tired confused. It took her afew days to process and was worried that she had a seizure .No other episodes since then. she also has loud snoring and has excessive daytime fatigue.she has gasping arousals. No head injuries. Her maternal Uncles have seizures. she has drivers permit but does not drive. [facility] Medical History Nephrolithiasis Otitis media, right Encounter to establish care Epilepsy Surgical History History of appendectomy Family History Mother Cervical cancer Father Diabetes High blood pressure Gum disease Other Mental health disorder Social History Housing: House Alcohol intake: current Alcohol intake frequency: holidays/special occasions only Patient Tobacco Use Status: Never used Tobacco e-Cigarette/Vaping Use: Never Used Second Hand Smoke Exposure: No service: No Current occupational status: employed Current occupation: Food services, [employer] Cognitive needs: No Hearing needs: No Vision needs: No Physical Exam Vital Signs: BMI result Body Mass Index 63.4 Const General: cooperative, healthy appearing and comfortable Nutritional Appearance: obese Orientation/consciousness: patient oriented x3 Eyes Pupils: Equal, round and reactive pupils present Neuro General: patient oriented x3, gait normal, tone normal, moves all extremities and no focal motor deficits Cranial nerves: Yes Facial sensation intact/muscles of mastication intact, Yes Equal, round and reactive pupils present, Yes Bilaterally intact EOM present, Yes Nystagmus not present, Yes Normal facial strength present, Yes Midline tongue present, Yes Symmetric palate elevation present and Yes Ability to bilaterally elevate shoulders present Cognition (Neuro): normal cognition Gait exam (Neuro): Normal gait present Motor exam (neuro): 5/5 motor strength present throughout and Normal motor muscle tone present throughout Deep tendon reflexes (DTR's): Right triceps reflex intensity grade: 2+, Left triceps reflex intensity grade: 2+, Rt Biceps (C5, C6): 2+, Left biceps reflex intensity grade: 2+, Right brachioradialis reflex intensity grade: 2+, Left brachioradialis reflex intensity grade: 2+, Right patellar reflex intensity grade: 2+ and Left patellar reflex intensity grade: 2+ Coordination: [id number] test normal Results Reviewed Results Reviewed: MRI 08/2024 Limited moderately motion degraded exam. Within the limitations of this exam, there is no demonstrated acute intracranial abnormalities. No demonstrated abnormal mass effect. Assessment & Plan Assessment & Plan (1) H/O tonic-clonic seizures: Comment: last seizure 2011 , new episdoe of gasping arousal with urinary incontinence ( February 2024) Code(s): Z86.69 - Personal history of other diseases of the nervous system and sense organs Category: Medical (2) Hypersomnia: Code(s): G47.10 - Hypersomnia, unspecified Category: Medical (3) Snoring: Code(s): R06.83 - Snoring Category: Medical Plan The episode she describes in February 2024 could be related to possible sleep apnea. I will evaluate her with Home sleep study . EEG to evaluate for possible seizure focus MRI brain results reviewed Orders: Orders RT home sleep study Today G47.10 - Hypersomnia, unspecified, R06.83 - Snoring EEG electroencephalogram Today Z86.69 - Personal history of other diseases of the nervous system and sense organs Coding Level of Care Code New Pt Level 4 (57470) Diagnoses H/O tonic-clonic seizures Z86.69 Hypersomnia G47.10 Snoring R06.83
--- OUTSIDE RECORDS SUMMARY | 2024-11-17 16:36 | XMS_ITS | Continuity of Care Document ---
Author Organization [facility] Lizeth borjas [facility] Address [address] [place] [address], [address] [place] [address]- Care Team Providers Care Eligibility Supervisor Name Role Phone Not on Staff, PCP Primary Care Physician Unavail able Encounter [facility] Date(s): 09/20/24 [facility] [address] [place] [address], [address] [place], [place] [address] Attending Physician: Laura Virgen Admitting Physician: Laura Virgen Referring Physician: Laura Virgen Encounter Type: Triage Allergies, Adverse Reactions, Alerts No Known Allergies Medications EC Naprosyn 500 mg oral enteric coated tablet 1 tablet = 500 mg, By Mouth, 2 times a day, prn menstrual pain, # 180 tablet, 0 Refills, Maintenance, 10/31/22 2:27:00 PM EST, EC Tablet, [id number], Partial fill upon patient request if the prescription is for a schedule II opioid drug., 150.2, cm, 08/06/22 9:40:00 EDT, Height Start Date: 10/31/22 Status: Ordered Quantity: 180.0 Unit: tablet Repeat number: 1 nystatin topical [id number] u/gm powder 1 application, Topically, 3 times a day, # 60 Gm, 2 Refills, Maintenance, 09/22/24 10:03:00 AM EST,Powder, [id number], Partial fill upon patient request if the prescription is for a scheduleII opioid drug., 1 application Topically 3 times a day, 150.2, cm, 09/20/24 17:50:00 EST, Height, 143, kg, 09/20/24 17:50:00 EST, Dry Weight Start Date: 09/22/24 Status: Ordered Quantity: 60.0 Unit: g Repeat number: 3 Problem List Condition Confirmation Course Effective Dates Status Health St atus Informant Complex partial seizure Confirmed Active Hemorrhagic cyst of ovary Confirmed Active HSV infection Confirmed Active PAC - Premature atrial contraction Confirmed Active PCOS (polycystic ovarian syndrome) Confirmed Active Severe obesity Confirmed Active Social History Social History Type Response Smoking Status Never (less than 100 in lifetime) entered on: 07/15/19 Sex Sex Representation Female (finding) CT Abdomen * Event Display: CT Scan Abdomen Authored Date: Patient Care team information Care Team Personnel Name: Foster TURNER, Libertad Hernandez Position: [facility] BILL BOARD POSTER MD Member Role: Lifetime BILL BOARD POSTER Physician Address: [address] [place] [address], [address] Telecom: Name: Not on Staff, PCP Position: [facility] Physician (General Medicine) Member Role: PCP Care Team Related Persons Name: SUREKHA PORRAS Name: SUREKHA PORRAS Name: JOHN CANTRELL Insurance Providers Guarantor name: SUREKHA PORRAS Health Plan Information #: 1 Payer: [facility] FF NON P HMO Member Number: NA Policy Number: NA Group Number: NA
== END 2024-11-17 15:04 | disposition home or self-care (01) ==
PROVIDERS: PCP Nurse Practitioner Family; Visit Provider Psychiatry & Neurology Neurology
DX: Z86.69 Personal history of other diseases of the nervous system and sense organs (principal); G47.10 Hypersomnia, unspecified; R06.83 Snoring
CPT/HCPCS: 99204

== ENCOUNTER → 2024-11-17 14:26 | Outpatient (BNVA) | payer OTHER, SELFPAY | PROVIDERS: PCP Nurse Practitioner Family; Visit Provider Psychiatry & Neurology Neurology ==

== ENCOUNTER → 2024-11-30 08:11 | Outpatient (BNVA) | payer OTHER, SELFPAY | PROVIDERS: PCP Nurse Practitioner Family; Visit Provider Surgery ==

== ENCOUNTER 2024-12-12 15:32 | Outpatient (REF) | payer OTHER, SELFPAY | END 2024-12-12 15:33 | disposition home or self-care (01) | LOC: HO.US 15:32 | PROVIDERS: PCP Nurse Practitioner Family; Visit Provider Urology | DX: N39.0 Urinary tract infection, site not specified (principal); N20.0 Calculus of kidney; A49.9 Bacterial infection, unspecified | CPT/HCPCS: 76775 ==

== ENCOUNTER → 2024-12-12 15:34 | Outpatient (BNV) | payer OTHER, SELFPAY | PROVIDERS: PCP Nurse Practitioner Family; Visit Provider Radiology Diagnostic Radiology | DX: N39.0 Urinary tract infection, site not specified (principal) | CPT/HCPCS: 76775 ==

== ENCOUNTER → 2024-12-30 09:16 | Day surgery (SDC) | payer OTHER, SELFPAY ==
--- NOTE | ~2024-12-30 | FL_ITS ---
FLUOROSCOPIC LUMBAR PUNCTURE Indication: Pseudotumor cerebri Risks and benefits and possible complications were discussed with the patient and the consent form was signed. Patient was placed in the left lateral decubitus position on the fluoroscopy table. The back was prepped and draped in routine sterile fashion. Betadine was used as a skin antiseptic. Utilizing fluoroscopic guidance, a 7 in, 22-gauge Quincke spinal needle was advanced through the skin and soft tissues and directed towards the L3-L4 interlaminar space. Due to the patient's body habitus, attempts to access the intrathecal space were unsuccessful. Attempts to access the L2-L3 interlaminar space were also unsuccessful. The needle was removed without immediate complications. Total fluoroscopy time: 4.1 min FL/FL guided lumbar puncture LP Impression: Unsuccessful fluoroscopic lumbar puncture due to patient's body habitus. This procedure was performed by Robert Cardozo PA-C and supervised by Dr. Goel. Electronically signed by: John Goel MD 12/30/2024 03:16 PM LORIE
[2024-12-30 09:25] VITALS: BMI 63.6
[2024-12-30 09:43] VITALS: BP 141/90; PULSE 93; RESP 16; TEMP 36.4; O2SAT 97
[2024-12-30 09:48] LABS: UPreg QC Valid YES; Urine Pregnancy NEGATIVE (NEGATIVE)
[2024-12-30 12:14] VITALS: BP 162/97; PULSE 88; RESP 18; TEMP 36.3; O2SAT 98
[2024-12-30] MEDS: Lidocaine HCl 1 % 20 ML VIAL 15 ML INFILTRATI (12:38)
== END ==
LOC: HO.SSS 09:17
PROVIDERS: Physician Assistant Surgical; PCP Nurse Practitioner Family; Visit Provider Psychiatry & Neurology Neurology
PROC: 009U3ZZ Drainage of Spinal Canal, Percutaneous Approach (ICD-10-PCS; CPT 62270; principal; 2024-12-30 11:00)
DX: G93.2 Benign intracranial hypertension (principal); E66.9 Obesity, unspecified
CPT/HCPCS: 62328; 81025; J2003

== ENCOUNTER → 2024-12-30 11:00 | Outpatient (BNV) | payer OTHER, SELFPAY | PROVIDERS: PCP Nurse Practitioner Family; Visit Provider Physician Assistant Surgical | DX: G93.2 Benign intracranial hypertension (principal) | CPT/HCPCS: 62328 ==

== ENCOUNTER 2025-01-04 15:49 | Outpatient (AMB) | payer OTHER, SELFPAY ==
--- NOTE | 2025-01-04 15:51 | A.OFFVIS_ITS ---
Intake Visit Reasons: 6m/US(set) Intake Note: Patient present for follow up- nephrolithiasis/ultrasound results Urology medication: none Blood thinners: none Imaging 12/12/24 Chemical Laboratory Assistant Required: No Accompanied by: Self / Same As Patient Allergies No Known Allergies Allergy (Verified 01/04/25 15:55) HPI Comments Details: Arleth is a very pleasant 24-year-old female patient of Dr. Bellamy. She has a past medical history of hyper insomnia, snoring, nephrolithiasis, and epilepsy. She presents to the office today for follow-up of her nephrolithia sis. In discussion with the patient today she reports to be doing and feeling well. She denies having had any bothersome urinary issues or concerns since her last office visit here. Recent renal imaging results reviewed with the patient today. 01/01 bilateral kidneys are normal in echotexture bilaterally without focal lesion, nephrolithiasis, and or hydronephrosis. Negative renal ultrasound. In office urinalysis results reviewed with the patient today microscopic hematuria noted however patient reports currently being on her menses. She denies urinary urgency, urinary frequency, incontinence, nocturia, hematuria, dysuria, foul smelling urine, changes to urinary stream, flank pain, fever, and or chills. She is happy with her current voiding parameters. We discussed importance of adequate hydration relation to nephrolithiasis as well as overall health and well-being. She otherwise offers no other issues or concerns at this time. PREVIOUS OFFICE NOTE: Nephrolithiasis Imaging - 05/29 CT Scan - left proximal ureteric stone 3 mm - 08/30 Renal US - normal Had been encouraged to increase fluids PFSH Medical History H/O tonic-clonic seizures Hypersomnia Snoring Nephrolithiasis Otitis media, right Encounter to establish care Epilepsy Surgical History History of appendectomy Family History Mother Cervical cancer FH: thyroid condition Father Diabetes High blood pressure Gum disease Other Mental health disorder Social History Housing: House Alcohol intake: current Alcohol intake frequency: holidays/special occasions only Patient Tobacco Use Status: Never used Tobacco e-Cigarette/Vaping Use: Never Used Second Hand Smoke Exposure: No service: No Current occupational status: employed Current occupation: Food services, [employer] Cognitive needs: No Hearing needs: No Vision needs: No Review of Systems Const All systems reviewed & are unremarkable except as noted in HPI and below Physical Exam Const General: cooperative, healthy appearing, comfortable, no acute distress, well developed, alert and awake Nutritional Appearance: overweight Orientation/consciousness: patient oriented x3 Limitations: no limitations HEENT Head: Yes normal to inspection, Yes normocephalic and Yes atraumatic Ears: hearing grossly normal bilaterally Eyes General: appearance normal, both eyes and all related structures Neck Neck: Yes normal visual inspection and Yes trachea midline Chest Chest palpation & inspection: normal inspection of the chest Resp Effort & Inspection: normal respiratory effort and able to speak in complete sentences Cardio Rate: regular rate GI Inspection: Yes normal to inspection General: Yes no CVA tenderness Back/Spine/Pelvis Back: no CVA tenderness Skin General skin exam: no rashes or lesions noted Neuro General: patient oriented x3 Extrem General: Yes normal to inspection Psych Appearance: grossly normal and well kempt Mental Status: mental status grossly normal Speech and movement: Normal speech and movement present and Clear speech present Affect: normal affect Attitude: cooperative Thought process: Normal thought process present Thought content: Normal thought content present Insight: Fair insight present (Psych) Judgement: Fair judgement present (Psych) Results AMB Urinalysis, Automated UA Leukoctes 0 Xiao/uL Last Edit by [employer] on 01/04/25 16:06 UA Nitrite Last Edit by [employer] on 01/04/25 16:06 UA Urobilinogen 0.2 mg/dL Last Edit by [employer] on 01/04/25 16:06 UA Protein 15 mg/dL Last Edit by [employer] on 01/04/25 16:06 UA pH 5.5 Last Edit by [employer] on 01/04/25 16:06 UA Blood 200 Sergio/uL Last Edit by [employer] on 01/04/25 16:06 UA Specific Isom 1.025 Last Edit by [employer] on 01/04/25 16:06 UA Ketone Negative Last Edit by [employer] on 01/04/25 16:06 UA Bilirubin 0 mg/dL Last Edit by Jovani Fulton on 01/04/25 16:06 UA Glucose 0 mg/dL Last Edit by Jovani Fulton on 01/04/25 16:06 Results Reviewed Results Reviewed: Date of Service: 12/12/24 Exam: Ultrasound of the kidneys. Comparison: None. Findings: Right kidney measures 10.6 x 4.8 x 5.2 cm in size. Left kidney measures 11.4 x 5.4 x 4.4 cm in size. Kidneys are of normal echotexture bilaterally without focal lesion, nephrolithiasis, or hydronephrosis. Impression: Negative renal ultrasound. Assessment & Plan Assessment & Plan (1) Nephrolithiasis: Code(s): N20.0 - Calculus of kidney Category: Medical Plan In office urinalysis results reviewed the patient today; as noted above; patient currently on her menses. Recent renal imaging results reviewed with the patient today; as noted above. Patient currently denies any bothersome urinary issues or concerns. She reports be happy with current voiding parameters. We discussed at length importance of adequate hydration relation to nephrolithiasis as well as overall health and well-being. We discussed adding 1 oz of lemon juice to water daily. Will obtain renal ultrasound in 6 months. Follow-up in 6 months with imaging to be completed prior; or sooner with any issues, concerns, and or questions. Orders: Orders US renal BI 6 Months N20.0 - Calculus of kidney AMB Urinalysis Automated Today Z13.9 - Encounter for screening, unspecified Patient Instructions: The patient had an opportunity to ask questions regarding the treatment plan. All questions were answered. Physical exam, labs, and imaging were discussed and reviewed in detail. As well as risks, benefits, and discussion of treatment choices. No major barriers to understanding were identified. The patient expressed understanding and agreement with the above treatment plan. The patient was made aware they should contact our office by phone for worsening of their current condition, the appearance of new symptoms, or with any questions or concerns. Compliance is encouraged with any medications and follow up testing that is ordered. It is a privilege to be allowed the opportunity to participate in? your urological care.? Again, if you have any questions or concerns If you have any questions or concerns please do not hesitate to contact me. The office is [phone]. This note is constructed using voice recognition software. While every effort has been made to ensure accuracy manager action errors may have been included. Yours sincerely, MIC Villavicencio Coding Level of Care Code Est Pt Level 3 (33627) Diagnoses Nephrolithiasis N20.0
--- OUTSIDE RECORDS SUMMARY | 2025-01-04 19:20 | XMS_ITS | Continuity of Care Document ---
Author Organization [employer] Lizeth Lauren Address [address] [place] [address], [address] [place] [address]- Care Team Providers Care Flour Distributor Name Role Phone Not on Staff, PCP Primary Care Physician Unavail able [id number] Date(s): 11/16/24 - 12/16/24 [facility] [address] [place] [address], [address] [place] [address]- Encounter Type: Triage Allergies, Adverse Reactions, Alerts [...] Unit: tablet Repeat number: 1 nystatin topical [id number] u/gm powder 1 application, Topically, 3 times [...] on: 07/15/19 Sex Sex Representation Female (finding) Patient Care team information Care Team Personnel Name: Libertad Hutchison MD Position: [facility] CLIMATOLOGY PROFESSOR MD Member Role: [employer] CLIMATOLOGY PROFESSOR Physician Address: [address] [place] [address], [address] [facility] [address] Telecom: Name: Not on Staff, PCP Position: [facility] Physician (General Medicine) Member Role: PCP Care Team Related Persons Name: SUREKHA PORRAS Name: SUREKHA PORRAS Name: JOHN CANTRELL Insurance Providers Guarantor name: SUREKHA PORRAS Health Plan Information #: 1 Payer: [employer] FF NON P HMO Member Number: NA Policy Number: NA Group Number: NA
== END 2025-01-04 16:17 | disposition home or self-care (01) ==
PROVIDERS: PCP Nurse Practitioner Family; Visit Provider Nurse Practitioner Family
DX: Z13.9 Encounter for screening, unspecified (principal); N20.0 Calculus of kidney
CPT/HCPCS: 99213

== ENCOUNTER → 2025-01-04 15:49 | Outpatient (BNVA) | payer OTHER, SELFPAY | PROVIDERS: PCP Nurse Practitioner Family; Visit Provider Nurse Practitioner Family | DX: N20.0 Calculus of kidney (principal) | CPT/HCPCS: 81003 ==

== ENCOUNTER → 2025-01-11 14:50 | Outpatient (REF) | payer OTHER, SELFPAY | LOC: HO.SL 14:50 | PROVIDERS: PCP Nurse Practitioner Family; Visit Provider Psychiatry & Neurology Neurology | DX: R06.83 Snoring (principal); G47.10 Hypersomnia, unspecified | CPT/HCPCS: 95806 ==

== ENCOUNTER → 2025-01-11 15:08 | Outpatient (BNV) | payer OTHER, SELFPAY | PROVIDERS: PCP Nurse Practitioner Family; Visit Provider Psychiatry & Neurology Neurology | DX: R06.83 Snoring (principal); G47.10 Hypersomnia, unspecified | CPT/HCPCS: 95806 ==

== ENCOUNTER → 2025-02-17 20:30 | Outpatient (REF) | payer OTHER, SELFPAY | LOC: HO.SL 20:30 | PROVIDERS: PCP Nurse Practitioner Family; Visit Provider Psychiatry & Neurology Neurology | DX: R06.83 Snoring (principal); G47.10 Hypersomnia, unspecified | CPT/HCPCS: 95810 ==

== ENCOUNTER → 2025-02-17 22:41 | Outpatient (BNV) | payer OTHER, SELFPAY | PROVIDERS: PCP Nurse Practitioner Family; Visit Provider Psychiatry & Neurology Neurology | DX: R06.83 Snoring (principal); G47.10 Hypersomnia, unspecified | CPT/HCPCS: 95810 ==

== ENCOUNTER 2025-03-23 11:53 | Outpatient (REF) | payer OTHER, SELFPAY ==
--- NOTE | 2025-03-23 11:56 | EEG_ITS ---
This is a 16 channel EEG with an EKG lead. The patient is reported awake during the tracing. Background EEG rhythm is about 10 hertz, 5-20 microvolt posteriorly, lower amplitude fast anteriorly. Photic stimulation does not produce any significant driving. Hyperventilation is not performed. Cardiac lead does not reveal any significant abnormality. No sharp wave spikes or paroxysmal tendency noted. IMPRESSION: Unremarkable EEG. MD ELDON Ryan/DESIREE / [phone]
== END 2025-03-23 11:54 | disposition home or self-care (01) ==
LOC: HO.NEURO 11:53
PROVIDERS: PCP Nurse Practitioner Family; Visit Provider Psychiatry & Neurology Neurology
DX: Z86.69 Personal history of other diseases of the nervous system and sense organs (principal)
CPT/HCPCS: 95816

== ENCOUNTER 2025-03-29 14:18 | Outpatient (AMB) | payer OTHER, SELFPAY ==
--- NOTE | 2025-03-29 14:23 | A.OFFPC_ITS ---
Intake Visit Reasons: telehealth for antibody titers Intake Note: Telehealth Patient c/o of acid reflux x 1 week and in need of titers. Personnel Clerk Required: No Allergies No Known Allergies Allergy (Verified 03/29/25 15:21) Medication List - Last Reconciled 03/29/25 by LINDA Stanley- acetazolamide 250 mg PO BID albuterol sulfate 90 mcg/actuation (Ventolin HFA) 2 puffs inhalation Q4-6H PRN cholecalciferol (vitamin D3) 125 mcg PO DAILY Tobacco use date assessed: 03/29/25 Dental Screening Dental Screen Date: 03/29/25 Did you have a dental visit in the last 12 months?: Yes Did you have a dental problem in the last 6 months where you did not have access to dental care?: No Was dental information given to patient?: Patient has dentist HPI HPI Comments History of Present Illness Details 25-year-old female vitamin-D deficiency, morbid obesity, asthma, generalized anxiety disorder, MDD, nephrolithiasis, epilepsy generalized anxiety, diverticulosis, umbilical hernia, atrial ectopy, hyperlipidemia status post appendectomy Health Maintenance: ? PAP 2021 @ [facility] ? Tdap 05/2024 Echo 09/14/24 trivial pericardial effusion, MV regurg, EF 55-60% Holter 09/14/24 Underlying rhythm is sinus with an average rate of 90/Min. About 21% of the time, rate > 100/Min, Rare supraventricular ectopy. One episode of possible SVT versus sinus tachycardia But less than a minute. Specialists: [facility] - [facility] 08/2024, will be undergoing LP Nov 2024 Tanya Swift April 2024 History of Present Illness - The patient is a 25 year old female pr esenting with a requirement for immuniza tion titers. - Requires titers for hepatitis, measles , mumps, rubella, and varicella vaccines. - Enrollment in criminal justice program requires complete immunization records. - Previously submitted vaccination recor ds, but titers are necessary for completion. - History of recent significant acid ref lux addressed with regular TUMS, resolved without present symptoms. - Currently administered acetazolamide f or intracranial pressure, with noted symptom of polyuria. Assessment and Plan 1. Requirement for Immunization Titers - Ordered necessary titers for school re quirement. - Recommended [facility] usage. - Explained result processing and follow -up steps. results will be sent to portal. if boosters needed, advised to get at the pharmacy for quick turn around 2. Acid Reflux - TUMS recommended as needed. - Advised timing separation with acetazo lamide. 3. Usage of Acetazolamide - Explained usage and effects of acetazo lamide. - Continued monitoring for side effects. Telehealth Attestation This visit was conducted via telehealth, and all information documented accurately reflects the visit as confirmed through a virtual medium. The patient has been explained that this is an interactive (audio/video) telehealth encounter and what that consists of. The patient understands and wishes to proceed. SinglePlatform platform was used. Total time spent caring for the patient today was 15 minutes. This includes time spent before the visit reviewing the chart, time spent during the visit, and time spent after the visit on documentation, reviewing laboratory results, diagnostic imaging, medications, performing a medically necessary evaluation, counseling on diagnoses, care coordination, ordering appropriate tests, ordering appropriate medications, review of tests performed by other providers, reporting test results with the patient, communication with other healthcare providers. FU as scheduled for CPE, sooner PRN [facility] Medical History (Updated 03/29/25 @ 15:20 by Aster Bellamy, [facility]) Encounter to establish care Epilepsy H/O tonic-clonic seizures Hypersomnia Nephrolithiasis Otitis media, right Snoring Surgical History History of appendectomy Family History Mother Cervical cancer FH: thyroid condition Father Diabetes High blood pressure Gum disease Other Mental health disorder Social History Housing: House Alcohol intake: current Alcohol intake frequency: holidays/special occasions only Patient Tobacco Use Status: Never used Tobacco e-Cigarette/Vaping Use: Never Used Second Hand Smoke Exposure: No service: No Current occupational status: employed Current occupation: Food services, [employer] Cognitive needs: No Hearing needs: No Vision needs: No Questionnaire Thrive Questionnaire Date Thrive assessed: 10/21/24 ANT-7 AMB Questionnaire ANT-7 Date ANT - 7 assessed: 10/21/24 Source: Developed by Drs. Simeon Mendoza, Cathi BErnie Nieves and colleagues, with an educational luigi from [employer]. Physical exam (Primary Care) Tobacco/Smoking Status: Tobacco use Status Tobacco use date assessed 03/29/25 03/29/25 14:25 Patient Tobacco Use Status Never used Tobacco 03/29/25 14:25 e-Cigarette/Vaping Use Never Used 03/29/25 14:25 Thrive Assessment: Date of Thrive Assessment Date Thrive assessed 10/21/24 03/29/25 14:25 Telehealth Telehealth Telehealth Platform: [facility] Location of provider rendering services: practice address Location of patient: address on file Patient Identification confirmed using: Name, : Yes Telehealth method: voice only Patient verbally consented to treatment: Yes Patient verbally consented to billing insurance company: Yes Patient informed of any privacy concerns related to visit: Yes Minutes spent on Phone/Video with Pt.: 7 Coding Level of Care Code Tele Est Pt Level 2 (20637) Complex EM visit Add On G2211 Diagnoses Encounter for antibody response examination Z Gastroesophageal reflux disease without esophagitis K21.9 Esophagitis presence: without esophagitis Assessment & Plan Assessment & Plan (1) Encounter for antibody response examination: Code(s): Z.84 - Encounter for antibody response examination Category: Medical (2) Acid reflux: Code(s): K21.9 - Gastro-esophageal reflux disease without esophagitis Qualifiers: Esophagitis presence: without esophagitis Qualified Code(s): K21.9 - Gastro-esophageal reflux disease without esophagitis Plan . Orders: Orders MMR IgG Measles Mumps Rubella Today Z - Encounter for antibody response examination Varicella IgG Antibody Today 84 - Encounter for antibody response examination T Spot TB Today Z.84 - Encounter for antibody response examination, Z11.1 - Encounter for screening for respiratory tuberculosis Hepatitis B Surface Antibody Today - Encounter for antibody response examination
== END 2025-03-29 15:27 | disposition home or self-care (01) ==
LOC: HO.HMCFM 14:18
PROVIDERS: PCP Nurse Practitioner Family; Visit Provider Nurse Practitioner Family
DX: Z01.84 Encounter for antibody response examination (principal); K21.9 Gastro-esophageal reflux disease without esophagitis

== ENCOUNTER → 2025-03-29 14:18 | Outpatient (BNVA) | payer OTHER, SELFPAY | PROVIDERS: PCP Nurse Practitioner Family; Visit Provider Nurse Practitioner Family ==

== ENCOUNTER 2025-04-06 15:06 | Outpatient (AMB) | payer OTHER, SELFPAY ==
[2025-04-06 15:21] VITALS: BP 140/92; PULSE 90; TEMP 36.6; O2SAT 98
--- NOTE | 2025-04-06 15:21 | MHC.OFFWIV ---
Intake Vital Signs 04/06/25 15:21 Height 4 ft 11 in BMI Reason not done Patient refused/unable BP 140/92 H Blood Pressure Location Rt brachial Position Sitting Pulse 90 Pulse Source Pulse Oximeter Temp 97.8 F Temp Source Oral Pulse Oximetry (%) 98 Oxygen Delivery Method Room Air Intake Visit Reasons: EP UTI?? Patient Tobacco Use Status: Never used Tobacco Allergies No Known Allergies Allergy (Verified 04/06/25 15:22) Do you need a note to return to daycare/school/sports/work: Yes HPI HPI Comments History of Present Illness Details History of Present Illness - The patient is a 25-year-old female presenting with symptoms suggestive of a Urinary Tract Infection. - Symptoms began with burning and frequent urination on Thursday, worsening on Thursday. - Patient utilized [id number] Urastat for symptom relief. - Attempts to reach healthcare providers on Thursday and Thursday were initially unsuccessful. - No reported fever or hematuria. - History of kidney stones, but current symptoms are not typical of prior episodes. - Back pain is present but considered normal for the patient. Physical Exam General: Cooperative, healthy appearing, comfortable, no acute distress and well developed Orientation: Patient oriented x3 Limitations: No limitations Head: Normal to inspection Ears: Hearing grossly normal bilaterally Nose: Normal External nose present Face and sinus: Normal facial exam Eyes: Appearance normal, both eyes and all related structures Neck: Normal visual inspection and Yes full ROM Respiratory: Normal respiratory effort and able to speak in complete sentences. Clear to auscultation bilaterally Cardiovascular: Regular rate and rhythm. Normal S1 and S2 Skin: No rashes or lesions noted Neuro: Patient oriented x3 Extremities: Normal to inspection [facility] Medical History (Updated 03/29/25 @ 15:20 by LINDA Stanley-ALEJANDRINA) H/O tonic-clonic seizures Hypersomnia Snoring Nephrolithiasis Otitis media, right Encounter to establish care Epilepsy Surgical History (Updated 03/29/25 @ 15:25 by LINDA Stanley-ALEJANDRINA) History of appendectomy Family History Mother Cervical cancer FH: thyroid condition Father Diabetes High blood pressure Gum disease Other Mental health disorder Social History Housing: House Alcohol intake: current Alcohol intake frequency: holidays/special occasions only Patient Tobacco Use Status: Never used Tobacco e-Cigarette/Vaping Use: Never Used Second Hand Smoke Exposure: No service: No Current occupational status: employed Current occupation: Food services, [employer] Cognitive needs: No Hearing needs: No Vision needs: No Physical Exam Vital Signs: Last Vital Signs Temp 97.8 F 04/06/25 15:21 Pulse 90 04/06/25 15:21 BP 140/92 H 04/06/25 15:21 Pulse Ox 98 04/06/25 15:21 Oxygen Delivery Method Room Air 04/06/25 15:21 Assessment & Plan Assessment & Plan (1) Urinary tract infection: Code(s): N39.0 - Urinary tract infection, site not specified Qualifiers: Hematuria presence: without hematuria Urinary tract infection type: acute cystitis Qualified Code(s): N30.00 - Acute cystitis without hematuria Plan: As pt took Azo, could not do UA as it would not be accurate. The patient is diagnosed with a Urinary Tract Infection and prescribed Cefuroxime, to be taken every 12 hours for seven days. A urine culture will be performed to ensure the appropriate antibiotic is used, with follow-up if adjustments are needed. [facility]. The patient is instructed to collect the medication and informed about the procedure for obtaining a work note if needed. The patient is advised to monitor symptoms and return if there is no improvement or if symptoms worsen. Patient was informed and verbally consented to the use of an ambient scribe for clinic note documentation during this visit. Orders: Orders Urine Culture Today N39.0 - Urinary tract infection, site not specified Medications: New cefuroxime axetil 500 mg PO Q12H 10 tabs 0RF Coding Level of Care Code Est Pt Level 3 (95518) Diagnoses Urinary tract infection N30.00 Hematuria presence: without hematuria Urinary tract infection type: acute cystitis
== END 2025-04-06 15:31 | disposition home or self-care (01) ==
PROVIDERS: PCP Nurse Practitioner Family; Visit Provider Physician Assistant
DX: N30.00 Acute cystitis without hematuria (principal)

== ENCOUNTER 2025-04-06 15:06 | Outpatient (REF) | payer OTHER, SELFPAY | END 2025-04-06 15:07 | disposition home or self-care (01) | LOC: HO.LNP 15:06 | PROVIDERS: PCP Nurse Practitioner Family; Visit Provider Physician Assistant | DX: N30.00 Acute cystitis without hematuria (principal) | CPT/HCPCS: 87086 ==

== ENCOUNTER 2025-08-15 15:31 | Outpatient (REF) | payer OTHER, SELFPAY ==
--- NOTE | ~2025-08-15 | US_ITS ---
EXAMINATION: US RETROPERITONEAL LIMITED (RENAL ONLY) CLINICAL INFORMATION: Kidney stone. COMPARISON: Previous renal and bladder ultrasound most recent December [address] of the abdomen and pelvis July 2022 TECHNIQUE: Real-time imaging of the kidneys. FINDINGS: RIGHT KIDNEY: 10 x 5 x 5 cm (SAG x AP x TRV). The kidney is normal in size, contour, and echogenicity. Renal cortical thickness is normal. No calculi or focal parenchymal lesions. No hydronephrosis. LEFT KIDNEY: 12 x 5.3 x 4.5 cm (SAG x AP x TRV). The kidney is normal in size, contour, and echogenicity. Renal cortical thickness is normal. No calculi or focal parenchymal lesions. No hydronephrosis. US/US renal BI IMPRESSION: No stone seen by ultrasound. No hydronephrosis. Electronically signed by: Meeta Delvalle MD 08/15/2025 03:59 PM EDT
== END 2025-08-15 15:32 | disposition home or self-care (01) ==
LOC: HO.HMGCX 15:31
PROVIDERS: PCP Nurse Practitioner Family; Visit Provider Nurse Practitioner Family
DX: N20.0 Calculus of kidney (principal)
CPT/HCPCS: 76775

== ENCOUNTER → 2025-08-15 15:33 | Outpatient (BNV) | payer OTHER, SELFPAY | PROVIDERS: PCP Nurse Practitioner Family; Visit Provider Radiology Diagnostic Radiology | DX: N20.0 Calculus of kidney (principal) | CPT/HCPCS: 76775 ==

== ENCOUNTER 2025-08-18 09:48 | Outpatient (AMB) | payer OTHER, SELFPAY ==
[2025-08-18 09:51] VITALS: BP 120/78; PULSE 88; O2SAT 97; BMI 66.1
--- NOTE | 2025-08-18 09:51 | A.OFFVIS_ITS ---
Vital Signs 08/18/25 09:51 Height 4 ft 11 in Weight 327 lb 4 oz BMI 66.1 BP 120/78 Blood Pressure Location Rt brachial Position Sitting Pulse 88 Pulse Source Pulse Oximeter Pulse Oximetry (%) 97 Oxygen Delivery Method Room Air Intake Visit Reasons: f/u appt Intake Note: Patient presents follow up Seizure/Sleep. EEG/PSG in chart(AHI-0, MERLENE 93%. normal sleep study, no evidence of sleep apnea or sleep related movement disorders). Accompanied by: Self / Same As Patient Allergies No Known Allergies Allergy (Verified 08/18/25 09:54) HPI Comments Details: 25 y/o female comes for further management of seizure disorder and ANJU. PSG reviewed with pt. she does not have evidence of ANJU. AHI is 0 and oxygen is 93%. EEG 03/2025 reviewed with pt and is an unremarkable EEG. MRI 08/26/2024 Empty Sella, with pituitary gland flattening, reviewed with pt. otherwise unremarkable MRI. She reports snoring, gasping for air per her partner, multiple night time arousal, and consistently being tired daily despite sleeping 6-8 hours a night, she can easily fall asleep. She has PCOS with chronic fatigue. LP was repeated at [facility] January 2025 and she was started on Acetazolamide 250mg po BID for 6 weeks due to pseudotumor cerebri, however she had an adverse effect. She continues to have headaches 2-4x/ week which can last all day, c/o pain on lateral eye movements and blurry vision. Today we discussed pathology of papilladema and red flags for pt to go to the ED if she notices these symptoms. 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 She notices headaches decrease on the days when she is not working on her screens. These headaches are new and this does not feel like her usual migraines. Her baseline headaches are usually with photophobia/ phonophobia, sensitivity to smells, n/v. She denies auras, dizziness, vertigo and balance difficulties. She does not drive. She was started on a strict diet and weight loss program along with bariatric f/u recommended along with management of blood sugars. PMH Her seizures started at age 7 and stopped at age 15, she was on medication until she was 16. She describes seizures as passing out episodes with generalized shaking, urinary incontinence , tongue and cheek biting followed by confusion. she also had minor staring episodes.The seizures were 1/month and as she got older they became infrequent . In February 2024 she woke up shaking , startled , urinary incontinence , mouth was sore , tired confused. It took her a few days to process and was worried that she had a seizure .No other episodes since then. No head injuries.FH +Her maternal Uncles have seizures. [facility] Medical History H/O tonic-clonic seizures Hypersomnia Snoring Nephrolithiasis Otitis media, right Encounter to establish care Epilepsy Surgical History History of appendectomy Family History Mother Cervical cancer FH: thyroid condition Father Diabetes High blood pressure Gum disease Other Mental health disorder Social History Housing: House Alcohol intake: current Alcohol intake frequency: holidays/special occasions only Patient Tobacco Use Status: Never used Tobacco e-Cigarette/Vaping Use: Never Used Second Hand Smoke Exposure: No service: No Current occupational status: employed Current occupation: Food services, [employer] Cognitive needs: No Hearing needs: No Vision needs: No Physical Exam Vital Signs: Last Vital Signs Pulse 88 08/18/25 09:51 BP 120/78 08/18/25 09:51 Pulse Ox 97 08/18/25 09:51 Oxygen Delivery Method Room Air 08/18/25 09:51 BMI result Body Mass Index 66.1 Const General: cooperative, healthy appearing and comfortable Nutritional Appearance: obese Orientation/consciousness: patient oriented x3 Eyes Pupils: Equal, round and reactive pupils present Neuro General: patient oriented x3, gait normal, tone normal, moves all extremities and no focal motor deficits Cranial nerves: Yes Facial sensation intact/muscles of mastication intact, Yes Equal, round and reactive pupils present, Yes Bilaterally intact EOM present, Yes Nystagmus not present, Yes Normal facial strength present, Yes Midline tongue present, Yes Symmetric palate elevation present and Yes Ability to bilaterally elevate shoulders present Cognition (Neuro): normal cognition Gait exam (Neuro): Normal gait present Motor exam (neuro): 5/5 motor strength present throughout and Normal motor muscle tone present throughout Coordination: [id number] test normal Psych Appearance: grossly normal Speech and movement: Normal speech and movement present Attitude: cooperative Thought process: Normal thought process present Results Reviewed Results Reviewed: IMPRESSION: No stone seen by ultrasound. No hydronephrosis. FL/FL guided lumbar puncture LP Impression: Unsuccessful fluoroscopic lumbar puncture due to patient's body habitus. MR/MR head/brain wo con IMPRESSION: Limited moderately motion degraded exam. Within the limitations of this exam, there is no demonstrated acute intracranial abnormalities. No demonstrated abnormal mass effect. [facility] request - 03/2025 This is a 16 channel EEG with an EKG lead. The patient is reported awake during the tracing. Background EEG rhythm is about 10 hertz, 5-20 microvolt posteriorly, lower amplitude fast anteriorly. Photic stimulation does not produce any significant driving. Hyperventilation is not performed. Cardiac lead does not reveal any significant abnormality. No sharp wave spikes or paroxysmal tendency noted. IMPRESSION: Unremarkable EEG. Assessment & Plan Assessment & Plan (1) H/O tonic-clonic seizures: Comment: last seizure 2011 , new episdoe of gasping arousal with urinary incontinence ( February 2024) Code(s): Z86.69 - Personal history of other diseases of the nervous system and sense organs Category: Medical (2) Hypersomnia: Code(s): G47.10 - Hypersomnia, unspecified Category: Medical (3) Snoring: Code(s): R06.83 - Snoring Category: Medical (4) Loud snoring: Code(s): R06.83 - Snoring Category: Medical (5) Chronic headaches: Code(s): R51.9 - Headache, unspecified; G89.29 - Other chronic pain Category: Medical Qualifiers: Headache type: tension-type Intractability: intractable Qualified Code(s): G44.221 - Chronic tension-type headache, intractable (6) Morbid obesity with BMI of 50.0-59.9, adult: Code(s): E66.01 - Morbid (severe) obesity due to excess calories; Z68.43 - Body mass index [BMI] 50.0-59.9, adult Category: Medical (7) Low vitamin D level: Code(s): R79.89 - Other specified abnormal findings of blood chemistry Category: Medical (8) Excessive daytime sleepiness: Code(s): G47.19 - Other hypersomnia Category: Medical Plan ANJU, no evidence on PSG refer to sleep dentistry for oral appliance evaluation due to snoring and co-morbidities of seizure disorder. Headaches / Migraines due to pseudotumor cerebri will start her on Topiramate 25mg po daily at bedtime. Seizure disorder, EEG reviewed with pt. No h/o seizures since Feb 2024, she is no longer driving. MRI reviewed with pt., significant pt education is provided today re: pathophysiology of pressure increases in CSF and optical nerve compression, along with headaches and why eye exams, taking meds as prescribed and weight loss are all a critical component in this disorder. Continue regular eye exam, monitor the frequency and severity of headaches daily, weekly and monthly. Nutritional counseling and Weight loss is recommended to decrease IOC pressures and headaches. Labs to review F/U in 3 months. Orders: Orders Complete Blood Count no Diff Today E66.01 - Morbid (severe) obesity due to excess calories, G47.10 - Hypersomnia, unspecified, G47.19 - Other hypersomnia, R06.83 - Snoring, R79.89 - Other specified abnormal findings of blood chemistry, Z68.43 - Body mass index [BMI] 50.0-59.9, adult Ferritin Today E66.01 - Morbid (severe) obesity due to excess calories, G47.10 - Hypersomnia, unspecified, G47.19 - Other hypersomnia, R06.83 - Snoring, R79.89 - Other specified abnormal findings of blood chemistry, Z68.43 - Body mass index [BMI] 50.0-59.9, adult Methylmalonic Acid Today E66.01 - Morbid (severe) obesity due to excess calories, G47.10 - Hypersomnia, unspecified, G47.19 - Other hypersomnia, G47.9 - Sleep disorder, unspecified, R06.83 - Snoring, R53.83 - Other fatigue, R79.89 - Other specified abnormal findings of blood chemistry, Z68.43 - Body mass index [BMI] 50.0-59.9, adult IRON PROFILE Today E66.01 - Morbid (severe) obesity due to excess calories, G47.10 - Hypersomnia, unspecified, G47.19 - Other hypersomnia, G47.9 - Sleep disorder, unspecified, R06.83 - Snoring, R53.83 - Other fatigue, R79.89 - Other specified abnormal findings of blood chemistry, Z68.43 - Body mass index [BMI] 50.0-59.9, adult Homocysteine Today E66.01 - Morbid (severe) obesity due to excess calories, G47.10 - Hypersomnia, unspecified, G47.19 - Other hypersomnia, G47.9 - Sleep disorder, unspecified, R06.83 - Snoring, R53.83 - Other fatigue, R79.89 - Other specified abnormal findings of blood chemistry, Z68.43 - Body mass index [BMI] 50.0-59.9, adult Comprehensive Met. Panel Today E66.01 - Morbid (severe) obesity due to excess calories, G47.10 - Hypersomnia, unspecified, G47.19 - Other hypersomnia, R06.83 - Snoring, R79.89 - Other specified abnormal findings of blood chemistry, Z68.43 - Body mass index [BMI] 50.0-59.9, adult Hemoglobin A1c Today E66.01 - Morbid (severe) obesity due to excess calories, G47.10 - Hypersomnia, unspecified, G47.19 - Other hypersomnia, R06.83 - Snoring, R79.89 - Other specified abnormal findings of blood chemistry, Z68.43 - Body mass index [BMI] 50.0-59.9, adult Vitamin B12 and Folate Today E66.01 - Morbid (severe) obesity due to excess calories, G47.10 - Hypersomnia, unspecified, G47.19 - Other hypersomnia, R06.83 - Snoring, R79.89 - Other specified abnormal findings of blood chemistry, Z68.43 - Body mass index [BMI] 50.0-59.9, adult Vitamin D 25-OH Total Today E66.01 - Morbid (severe) obesity due to excess calories, G47.10 - Hypersomnia, unspecified, G47.19 - Other hypersomnia, R06.83 - Snoring, R79.89 - Other specified abnormal findings of blood chemistry, Z68.43 - Body mass index [BMI] 50.0-59.9, adult TSH reflex Free T4 Today E66.01 - Morbid (severe) obesity due to excess calories, G47.10 - Hypersomnia, unspecified, G47.19 - Other hypersomnia, R06.83 - Snoring, R79.89 - Other specified abnormal findings of blood chemistry, Z68.43 - Body mass index [BMI] 50.0-59.9, adult Referrals Dentistry Referral R06.83 - Snoring Nutrition/Dietitian Referral E66.01 - Morbid (severe) obesity due to excess calories, E78.5 - Hyperlipidemia, unspecified, Z68.43 - Body mass index [BMI] 50.0-59.9, adult Medications: New topiramate 25 mg PO ONCE 90 caps 1RF headaches 3 months MDD 25mg capsule G89.29 - Other chronic pain, R51.9 - Headache, unspecified Refilled cholecalciferol (vitamin D3) 125 mcg PO DAILY 90 caps 2RF Coding Level of Care Code Est Pt Level 4 (20442) Diagnoses H/O tonic-clonic seizures Z86.69 Hypersomnia G47.10 Snoring R06.83 Loud snoring R06.83 Chronic tension-type headache, intractable G44.221 Headache type: tension-type Intractability: intractable Morbid obesity with BMI of 50.0-59.9, adult E66.01; Z68.43 Low vitamin D level R79.89 Excessive daytime sleepiness G47.19
== END 2025-08-18 10:47 | disposition home or self-care (01) ==
LOC: HO.HSMS 09:49
PROVIDERS: PCP Nurse Practitioner Family; Visit Provider Physician Assistant Medical
DX: Z86.69 Personal history of other diseases of the nervous system and sense organs (principal); G47.10 Hypersomnia, unspecified; R06.83 Snoring; G44.221 Chronic tension-type headache, intractable; E66.01 Morbid (severe) obesity due to excess calories; Z68.43 Body mass index [BMI] 50.0-59.9, adult; R79.89 Other specified abnormal findings of blood chemistry; G47.19 Other hypersomnia
CPT/HCPCS: 99214

== ENCOUNTER 2025-09-21 14:44 | Outpatient (AMB) | payer OTHER, SELFPAY ==
--- NOTE | 2025-09-21 14:46 | A.OFFPC_ITS ---
Vital Signs 09/21/25 14:50 Height 4 ft 11 in Weight 332 lb 4 oz BMI 67.1 BP 112/70 Blood Pressure Location Lt brachial Position Sitting Respiration 14 Pulse 82 Pulse Source Pulse Oximeter Temp 97.2 F Temp Source Oral Pulse Oximetry (%) 98 Oxygen Delivery Method Room Air Intake Visit Reasons: CPE Intake Note: CPE Sheep Clipper Required: No Allergies No Known Allergies Allergy (Verified 09/21/25 15:06) Medication List - Last Reconciled 09/21/25 by Aster Bellamy, LEAD NURSE- albuterol sulfate 90 mcg/actuation (Ventolin HFA) 2 puffs inhalation Q4-6H PRN cholecalciferol (vitamin D3) 125 mcg PO DAILY topiramate 25 mg PO ONCE 3 months MDD 25mg capsule Tobacco use date assessed: 09/21/25 Dental Screening Dental Screen Date: 09/21/25 Did you have a dental visit in the last 12 months?: Yes Did you have a dental problem in the last 6 months where you did not have access to dental care?: No Was dental information given to patient?: Patient has dentist HPI HPI Comments History of Present Illness Details 25-year-old female vitamin-D deficiency, morbid obesity, asthma, generalized anxiety disorder, MDD, nephrolithiasis, epilepsy generalized anxiety, diverticulosis, umbilical hernia, atrial ectopy, hyperlipidemia status post appendectomy Social: telemarketing job Health Maintenance: ?PAP 2021 @ [facility] ?Tdap 05/2024, Flu 09/21/25 Echo 09/14/24 trivial pericardial effusion, MV regurg, EF 55-60% Holter 09/14/24 Underlying rhythm is sinus with an average rate of 90/Min. About 21% of the time, rate > 100/Min, Rare supraventricular ectopy. One episode of possible SVT versus sinus tachycardia But less than a minute. Specialists: [facility] - [facility] MRI 08/2024, s/p LP Nov [address] Swift April 2024, next appt February 2026 History of Present Illness The patient is a 25-year-old female presenting for a complete physical exam. Morbid obesity: - The patient has a history of morbid ob esity with a BMI of 67.1. Generalized anxiety disorder and Major depressive disorder: - The patient has a history of generaliz ed anxiety disorder and major depressive disorder, for which she is not currently taking medication. - She recently lost her job of four year s and reports feeling stressed and sad about it. - She previously tried therapy but found the appointments were scheduled too far apart to be helpful. Chronic headaches and Pseudotumor cerebri: - The patient has a history of chronic h eadaches and a diagnosis of pseudotumor cerebri. 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 - Neurology prescribed topiramate, but s he has not started it, as her headaches improved with increased water intake. - She had a bad reaction to a previous m edication, acetazolamide. - She follows with an perforating machine operator, Yossi Swift, with her next appointment scheduled for February 2026. Epilepsy: - The patient has a history of epilepsy and denies any recent seizures. - She does not drive due to her seizure history. - She has an upcoming follow-up appointm ent with neurology on November 24. Asthma: - She has a history of asthma, which she feels is not well maintained. - She uses albuterol as needed and repor ts her breathing has been okay, though she expects it to worsen with colder weather. Cardiac Arrhythmias: - The patient has a history of hyperlipi demia, heart palpitations, atrial ectopic tachycardia, and PVCs. - A cardiology evaluation in 2023, inclu ding a heart monitor and echocardiogram, was normal, and she was cleared by the automotive service management teacher. Recurrent Urinary Tract Infections: - The patient reports frequent UTIs desp ite good hygiene practices. - She has a history of minor urinary ana kage since childhood and has not discussed these recurrent issues with her urologist. - Her sexual intercourse is infrequent, occurring once or twice a month. Past Medical History - Morbid obesity with BMI of 67.1 - Generalized anxiety disorder - Major depressive disorder - Chronic headaches - Epilepsy - Asthma - Hyperlipidemia - Heart palpitations - Atrial ectopic tachycardia - Premature ventricular contractions (PV Cs) - Pseudotumor cerebri - History of adverse reaction to acetazo lamide - History of adverse reaction to amoxici llin - History of pelvic inflammatory disease (PID) - Recurrent urinary tract infections - Urinary leakage since childhood Past Surgical History - No surgeries since last visit. Family History - No changes in family medical history i n the last year. 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 - She reports feeling sad and stressed a bout the job loss. - She is currently working in a [employer] job that she does not like. - Functional status: The patient does no t drive due to a history of seizures and fear. - Relationships: She is in a long-distan ce relationship and has intercourse once or twice a month. Health Maintenance - The patient agreed to receive the infl uenza vaccine today. - Laboratory tests will be updated, as t he last set was a year ago. - A referral for counseling will be init iated to address recent stress and sadness. - Urine will be tested for UTI and scree clyde for gonorrhea and chlamydia. - Follow-up care is scheduled with urolo gy on the of this month and with n eurology on November 24. - Follow-up with ophthalmology is schedu led for February 2026. Review of Systems - General: Reports feeling sad and stres sed. - Neurological: Reports recent headaches from increased computer use. - Respiratory: Reports breathing has bee n okay but will likely worsen with cold weather. - Genitourinary: Reports frequent UTIs a nd minor urine leakage since childhood. - Endocrine: Denies dizziness on changin g positions. Physical Exam General: Well developed, well nourished, in no acute distress. Appears stated age. Blood pressure is 112/70. Head: Normocephalic, atraumatic. Eyes: Pupils are equal, round and reactive to light and accommodation. Conjunctivae are clear. Scleras nonicteric bilat. Vision grossly normal. Ears: TMs clear AU, EACS WNL. Nice and clear. Nose: Patent, without discharge. Neck: No carotid bruit bilat. Supple, no adenopathy or thyromegaly. Breast: Edu on SBE Lungs: Clear to auscultation bilaterally. No rales, rhonchi or wheeze noted. Good air flow in all fletcher. Heart: Regular rate and rhythm. No murmurs, click, rubs or gallops are noted. Abdomen: Bowel sounds present in all quadrants. The abdomen is soft, nontender, with no masses or organomegaly noted. No hernias are noted. : Deferred. Reviewed recommendations for routine TUMBLER DYEING MACHINE OPERATOR. Urinalysis to be performed to check for UTI. Pulses: Peripheral pulses are equal and palpable bilaterally. Extremities: No clubbing, cyanosis nor edema is noted. Neurologic: Gait and station normal. Cranial Nerves 2-12 intact. Motor strength grossly symmetrical and intact. No sensory loss. Balance normal. Skin: No rashes, ulcers, or lesions noted. Turgor is good. Skin color is good. Hair and nails are without abnormalities. Psych: Normal eye contact, affect and mood appropriate, and normal interactions. Patient is alert and appropriate to context. M Results - Cardiology (May 2024): Echocardiogram and heart monitor results were normal. - Urology (December): Workup showed no k idney stones. Medical Decision Making The patient is a 25-year-old female with a complex medical history who presents for a complete physical exam. She has multiple chronic conditions, including morbid obesity, epilepsy, pseudotumor cerebri, and asthma, which are managed by various specialists. Given her recent job loss and resulting sadness and stress, a referral for mental health counseling is indicated. Although prescribed topiramate for chronic headaches by neurology, she has not started it, citing improvement with hydration; management will defer to her neurologist. Her cardiac workup was reassuring, allowing for as-needed follow-up. She presents with concerns for recurrent UTIs and possibly PID, though she is in a monogamous relationship. A urinalysis and STI screening are appropriate to rule out acute infection, and she was strongly advised to discuss the chronicity of her urinary symptoms with her urologist for specialist management. For health maintenance, routine labs will be updated and an influenza vaccine will be administered. Plan 1. Wellness And Preventive Care - The influenza vaccine will be administ ered during the visit. - Routine labs will be drawn today. - A branch coordinator will meet with the patient to arrange counseling services for stress and mood issues related to her recent job loss. 2. Recurrent Urinary Tract Infections An d Screening - A urinalysis will be performed to [facility] for an active UTI. - Screening for gonorrhea and chlamydia will be done via urine sample. - The patient was advised to discuss her recurrent UTIs and urinary leakage with her urologist at her upcoming appointment for further management. 3. Chronic Headaches And Pseudotumor Cer ebri - The patient will continue to follow up with neurology for management of her headaches. - She will continue taking topiramate as prescribed by neurology, though she has not yet started the medication. 4. Asthma - Continue using albuterol inhaler as ne eded for symptoms. Patient Instructions - You will receive a flu shot today befo re you leave. - Our branch coordinator, Wyatt, will come in to speak with you about setting up new counseling services. - After that, please go directly to the lab to have your blood drawn and provide a urine sample. - [facility]. - Remember to talk to your kidney specia list, Stefanie, about your frequent urinary tract infections and bladder leakage at your upcoming appointment. - Continue to follow up with your other specialists as scheduled. - I will see you back in a year for your next check-up, but please contact us if you need anything sooner. - RTO 1 year CPE sooner PRN Consent The patient provided verbal consent for an influenza vaccination. She also verbally consented to having blood work drawn and to providing a urine sample for urinalysis and screening for gonorrhea and chlamydia. Patient was informed and verbally consented to the use of an ambient scribe for clinic note documentation during this visit. An additional 20 minutes was spent addressing the problem(s) [facility]. This includes time spent before the visit reviewing the chart, time spent during the visit, and time spent after the visit on documentation reviewing laboratory results, diagnostic imaging, medications, performing a medically necessary evaluation, counseling on diagnoses, care coordination, ordering appropriate tests, ordering appropriate medications, review of tests performed by other providers, reporting test results with the patient, communication with other healthcare providers. [facility] Medical History H/O tonic-clonic seizures Hypersomnia Snoring Nephrolithiasis Otitis media, right Encounter to establish care Epilepsy Surgical History History of appendectomy Family History Mother Cervical cancer FH: thyroid condition Father Diabetes High blood pressure Gum disease Other Mental health disorder Social History Housing: House Alcohol intake: current Alcohol intake frequency: holidays/special occasions only Patient Tobacco Use Status: Never used Tobacco e-Cigarette/Vaping Use: Never Used Second Hand Smoke Exposure: No service: No Current occupational status: employed Current occupation: Food services, [employer] Cognitive needs: No Hearing needs: No Vision needs: No Questionnaire PHQ-9 Over the last 2 weeks, how often have you been bothered by any of the following problems? 1. Little interest or pleasure in doing things: not at all 2. Feeling down, depressed, or hopeless: several days 3. Trouble falling or staying asleep, or sleeping too much: more than half the days 4. Feeling tired or having little energy: more than half the days 5. Poor appetite or overeating: more than half the days 6. Feeling bad about yourself - or that you are a failure or have let yourself or your family down: not at all 7. Trouble concentrating on things, such as reading the newspaper or watching television: several days 8. Moving or speaking so slowly that other people could have noticed. Or the opposite - being so fidgety or restless that you have been moving around a lot more than usual: several days 9. Thoughts that you would be better off or of hurting yourself in some way: not at all Total score: 9 Depression Screening Interpretation: Positive Depression Screening Follow-up: Existing condition and In treatment Depression Screening Done: Yes 07568 - PHQ-9 Billing: Yes Source: Developed by Drs. Simeon Mendoza, Cathi Goncalves, Ernie Carolina and colleagues, with an educational luigi from [email or web address]. Thrive Questionnaire Date Thrive assessed: 09/21/25 I am a: Patient What is your living situation today?: I have a steady place to live Within the past 12 months, did the food you bought not last and you didn't have the money to get more?: I choose not to answer this question Within the past 12 months, did you worry whether your food would run out before you got money to buy more?: Never true Do you have trouble paying for medicines?: No Do you have trouble getting transportation to medical appointments?: Yes Do you have trouble paying your heating and electricity bill?: No Do you have trouble taking care of your child, family member or friend?: No Do you have trouble with day-to-day activities such as bathing, preparing meals, shopping, managing finances, etc.?: No Are you currently unemployed and looking for a job?: No Are you interested in more education?: Yes Please select the resources that you would like help with: None Currently or been in a relationship where the following occur: No concerns reported and I choose not to answer THRIVE Score: 1 AUDIT C Alcohol Use Questionnaire (AUDIT-C) 1. How often do you have a drink containing alcohol?: Monthly or less Total Score: 1 Score Reviewed/Action Taken: Yes ANT-7 AMB Questionnaire ANT-7 Date ANT - 7 assessed: 09/21/25 Feeling nervous, anxious, or on edge: 3 = Nearly every day Not being able to stop or control worryin = Nearly every day Worrying too much about different things: 3 = Nearly every day Trouble relaxin = More than half the days Being so restless that it is hard to sit still: 0 = Not at all Becoming easily annoyed or irritable: 1 = Several days Feeling afraid as if something awful might happen: 1 = Several days Total ANT-7 score (0-4 normal; 5-9 mild; 10-14 moderate; 15-21 severe): 13 Source: Developed by Drs. Simeon Mendoza, Cathi Goncalves, Ernie Carolina and colleagues, with an educational luigi from [email or web address]. ANT-7 Assessment Billing ANT-7 Assessment Tool: ANT-7 Assessment 01210 Physical exam (Primary Care) Vital Signs: Last Vital Signs Temp 97.2 F 09/21/25 14:50 Pulse 82 09/21/25 14:50 Resp 14 09/21/25 14:50 BP 112/70 09/21/25 14:50 Pulse Ox 98 09/21/25 14:50 Oxygen Delivery Method Room Air 09/21/25 14:50 BMI result Body Mass Index 67.1 BMI Assessment/Plan discussion: High BMI High, discussed plan: lifestyle Tobacco/Smoking Status: Tobacco use Status Tobacco use date assessed 09/21/25 09/21/25 14:49 Patient Tobacco Use Status Never used Tobacco 09/21/25 14:49 e-Cigarette/Vaping Use Never Used 09/21/25 14:49 PHQ-9: PHQ-9 Score PHQ-9: Total score 9 09/21/25 15:25 Depression Screening Interpretation: Positive Depression Screening Follow-up: Existing condition and In treatment Thrive Assessment: Date of Thrive Assessment Date Thrive assessed 09/21/25 09/21/25 14:49 Currently or been in a relationship where the following occur: No concerns reported and I choose not to answer Office Procedures Flu Questionnaire Does the patient have a severe egg allergy?: No Does the patient have severe life threatening allergies?: No Does the patient have a fever or illness today?: No Has the patient ever had Guillain-[place] Syndrome?: No Has the patient ever had any past reaction to a flu shot?: No Immunizations Fluarix [id number] (PF) 45 mcg (15 mcg x 3)/0.5 mL IM syringe Performing Provider: MIC Stanley [place] Location[place] [facility] Administered by: Dinora Garza MA on 09/21/25 15:25 Dose Route Admin Location Dispensed Lot Number Expiration Date NDC Coronary Clinical Specialist 0.5 mL IM Right Deltoid 0.5 mL [id number] 05/08/26 [id number] [employer] VIS Given Date VIS Provided VIS Publication Date 09/21/25 Single Vaccine 24 Eligibility Eligibility Date Funding Source Not [facility] Eligible 09/21/25 Private Coding Level of Care Code Est Pt Level 3 (64306) Est Pt Prev Care 18-39y(52536) Diagnoses Adult general medical exam Z00.00 BMI 60.0-69.9, adult Z68.44 Generalized anxiety disorder F41.1 Moderate episode of recurrent major depressive disorder F33.1 Major depression episode severity: moderate Influenza vaccination administered at current visit Z23 Dysuria R30.0 Mixed hyperlipidemia E78.2 Hyperlipidemia type: mixed hyperlipidemia Low vitamin D level R79.89 Nephrolithiasis N20.0 Chronic tension-type headache, intractable G44.221 Headache type: tension-type Intractability: intractable Epilepsy G40.909 H/O tonic-clonic seizures Z86.69 Asthma J45.909 History of Papanicolaou smear of cervix Z92.89 Additional Codes ANT-7 Assessment Billing - ANT-7 Assessment Tool: ANT-7 Assessment 19829 ([id number]) PHQ-9 - 95939 - PHQ-9 Billing: Yes ([id number]) Assessment & Plan Assessment & Plan (1) Adult general medical exam: Onset Date: ~09/21/25 Code(s): Z00.00 - Encounter for general adult medical examination without abnormal findings Category: Medical (2) BMI 60.0-69.9, adult: Code(s): Z68.44 - Body mass index [BMI] 60.0-69.9, adult Category: Medical (3) Generalized anxiety disorder: Code(s): F41.1 - Generalized anxiety disorder Category: Medical (4) MDD (major depressive disorder), recurrent episode: Code(s): F33.9 - Major depressive disorder, recurrent, unspecified Category: Medical Qualifiers: Major depression episode severity: moderate Qualified Code(s): F33.1 - Major depressive disorder, recurrent, moderate (5) Influenza vaccination administered at current visit: Onset Date: ~09/21/25 Code(s): Z23 - Encounter for immunization Category: Medical (6) Dysuria: Code(s): R30.0 - Dysuria Category: Medical (7) Hyperlipidemia: Comment: 05/2024 LDL 158 Code(s): E78.5 - Hyperlipidemia, unspecified Category: Medical Qualifiers: Hyperlipidemia type: mixed hyperlipidemia Qualified Code(s): E78.2 - Mixed hyperlipidemia (8) Low vitamin D level: Code(s): R79.89 - Other specified abnormal findings of blood chemistry Category: Medical (9) Nephrolithiasis: Code(s): N20.0 - Calculus of kidney Category: Medical (10) Chronic headaches: Code(s): R51.9 - Headache, unspecified; G89.29 - Other chronic pain Category: Medical Qualifiers: Headache type: tension-type Intractability: intractable Qualified Code(s): G44.221 - Chronic tension-type headache, intractable (11) Epilepsy: Code(s): G40.909 - Epilepsy, unspecified, not intractable, without status epilepticus Category: Medical (12) H/O tonic-clonic seizures: Comment: last seizure 2011 , new episdoe of gasping arousal with urinary incontinence ( February 2024) Code(s): Z86.69 - Personal history of other diseases of the nervous system and sense organs Category: Medical (13) Asthma: Code(s): J45.909 - Unspecified asthma, uncomplicated Category: Medical (14) History of Papanicolaou smear of cervix: Onset Date: ~2021 Code(s): Z92.89 - Personal history of other medical treatment Category: Medical Plan . Orders: Orders UA CC w/rflx Micro + Cult Today R30.0 - Dysuria CT NG by PCR Urine Today R30.0 - Dysuria Influenza [id number] Immunization Today Z23 - Encounter for immunization Patient Instructions: Health screenings for women You should visit your health care provider from time to time, even if you are healthy. The purpose of these visits is to: Screen for medical issues Assess your risk for future medical problems Encourage a healthy lifestyle Update vaccinations and other preventive care services Help you get to know your provider in case of an illness Information Even if you feel fine, you should still see your provider for regular checkups. These visits can help you avoid problems in the future. For example, the only way to find out if you have high blood pressure is to have it checked regularly. High blood sugar and high cholesterol levels also may not have any symptoms in the early stages. A simple blood test can check for these conditions. There are specific times when you should see your provider or receive specific health screenings. The [place] Preventive Services Task Force publishes a list of recommended screenings. Below are screening guidelines for women ages 18 to 39. BLOOD PRESSURE SCREENING Your blood pressure should be checked at least once every 3 to 5 years if: Your blood pressure is in the normal range (top number less than 120 mm Hg and bottom number less than 80 mm Hg) You don't have risk factors for high blood pressure Ask your provider if you need your blood pressure checked more often if: The top number is 120 to 129 mm Hg or the bottom number is 70 to 79 mm Hg You have diabetes, heart disease, kidney problems, are overweight, or have certain other health conditions You have a first-degree relative with high blood pressure You are Black You had high blood pressure during a If the top number is 130 mm Hg or greater or the bottom number is 80 mm Hg or greater, this is considered stage 1 hypertension. Schedule an appointment with your provider to learn how you can reduce your blood pressure. Watch for blood pressure screenings in your area. Ask your provider if you can stop in to have your blood pressure checked. BREAST CANCER SCREENING Experts do not agree about the benefits of breast self-exams in finding breast cancer or saving lives. Talk to your provider about what is best for you. A screening mammogram is not recommended for most women under age 40. Your provider may discuss and recommend mammograms, MRI scans, or ultrasounds if you have an increased risk for breast cancer, such as: A mother or sister who had breast cancer at a young age (most often starting screening earlier than the age the close relative was diagnosed) You carry a high-risk genetic marker CERVICAL CANCER SCREENING Cervical cancer screening should start at age 21 years unless your provider advises otherwise. After the first test: Women ages 21 through 29 should have a Pap test every 3 years. Exoprts do not agree on whether HPV testing is recommended for this age group. Women ages 30 through 65 should be screened with either a Pap test every 3 years or the HPV test every 5 years or both tests every 5 years (called cotesting ). Women who have been treated for precancer (cervical dysplasia) should continue to have Pap tests for 20 years after treatment or until age 65, whichever is longer. If you have had your uterus and cervix removed (total hysterectomy), and you have not been diagnosed with cervical cancer or precancer (high grade cervical neoplasia), you do not need cervical cancer screening. CHOLESTEROL SCREENING Cholesterol screening should begin at: Age 45 for women with no known risk factors for coronary heart disease Age 20 for women with known risk factors for coronary heart disease Repeat cholesterol screening should take place: Every 5 years for women with normal cholesterol levels More often if changes occur in lifestyle (including weight gain and diet) More often if you have diabetes, heart disease, kidney problems, or certain other conditions DIABETES SCREENING You should be screened for diabetes starting at age 35 and then repeated every 3 years if you have no risk factors for diabetes. Screening may need to start earlier and be repeated more often if you have other risk factors for diabetes, such as: You have a first degree relative with diabetes. You are overweight or have obesity. You have high blood pressure, prediabetes, or a history of heart disease. Screening for diabetes should be done if you are planning to become and you are overweight and have other risk factors such as high blood pressure. DENTAL EXAM Go to the dentist once or twice every year for an exam and cleaning. Your dentist will evaluate if you need more frequent visits. EYE EXAM Have an eye exam every 5 to 10 years before age 40. If you have vision problems, have an eye exam every 2 years or more often if recommended by your provider. You should have an eye exam that includes an examination of your retina (back of your eye) at least every year if you have diabetes. IMMUNIZATIONS Commonly needed vaccines include: Flu shot: get one every year. COVID-19 vaccine: ask your provider what is best for you. Tetanus-diphtheria and acellular pertussis (Tdap) vaccine: have one at or after age 19 as one of your tetanus-diphtheria vaccines if you did not receive it as an adolescent. Tetanus-diphtheria: have a booster (or Tdap) every 10 years. Varicella vaccine: receive 2 doses if you never had chickenpox or the varicella vaccine. Hepatitis B vaccine: receive 2, 3, or 4 doses, depending on your exact ci rcumstances. Measles, mumps, and rubella (MMR) vaccine: receive 1 to 2 doses if you are not already immune to MMR. Your provider can tell you if you are immune. Ask your provider about the human papillomavirus (HPV) vaccine if: You have not received the HPV vaccine in the past You have not completed the full vaccine series (you should catch up on this shot) Ask your provider if you should receive other immunizations if you have certain health problems that increase your risk for some diseases such as pneumonia. INFECTIOUS DISEASE SCREENING Women who are sexually active should be screened for chlamydia and gonorrhea up until age 25. Women 25 years and older should be screened for chlamydia and gonorrhea if at high risk. Screening for hepatitis C: All adults ages 18 to 79 should get a one-time test for hepatitis C. people should be screened at every . Screening for human immunodeficiency virus (HIV): All people ages 15 to 65 should get a one-time test for HIV. Depending on your lifestyle and medical history, you may also need to be screened for infections such as syphilis and HIV, as well as other infections. PHYSICAL EXAM All adults should visit their provider from time to time, even if they are healthy. The purpose of these visits is to: Screen for disease Assess your risk of future medical problems Encourage a healthy lifestyle Update your vaccinations and other preventive care services Maintain a relationship with a provider in case of an illness Your height, weight, and BMI should be checked at every exam. During your exam, your provider may ask you about: Depression and anxiety Diet and exercise Alcohol and tobacco use Safety issues, such as using seat belts, smoke detectors, and intimate partner violence Your medicines and risk for interactions SKIN SELF-EXAM Your provider may check your skin for signs of skin cancer, especially if you're at high risk, such as if you: Have had skin cancer before Have close relatives with skin cancer Have a weakened immune system OTHER SCREENING Talk with your provider about colon cancer screening if you have a strong family history of colon cancer or polyps, or if you have had inflammatory bowel disease or polyps yourself. Routine bone density screening of women under 40 is not recommended.
[2025-09-21 14:50] VITALS: BP 112/70; PULSE 82; RESP 14; TEMP 36.2; O2SAT 98; BMI 67.1
== END 2025-09-21 15:47 | disposition home or self-care (01) ==
LOC: HO.HMCFM 14:45
PROVIDERS: PCP Nurse Practitioner Family; Visit Provider Nurse Practitioner Family
DX: Z00.00 Encounter for general adult medical examination without abnormal findings (principal); G40.909 Epilepsy, unspecified, not intractable, without status epilepticus; E66.01 Morbid (severe) obesity due to excess calories; Z68.44 Body mass index [BMI] 60.0-69.9, adult; F33.1 Major depressive disorder, recurrent, moderate; F41.1 Generalized anxiety disorder; R30.0 Dysuria; E78.2 Mixed hyperlipidemia; J45.909 Unspecified asthma, uncomplicated; N20.0 Calculus of kidney; R79.89 Other specified abnormal findings of blood chemistry; G44.221 Chronic tension-type headache, intractable; Z23 Encounter for immunization; Z86.69 Personal history of other diseases of the nervous system and sense organs; Z92.89 Personal history of other medical treatment

== ENCOUNTER 2025-09-21 14:44 | Outpatient (REF) | payer OTHER, SELFPAY ==
[2025-09-21 17:57] LABS: Hematocrit 40.3 % (37.0-47.0); Hemoglobin 13.1 g/dl (12.0-16.0); Mean Corpuscular HGB Conc 32.5 g/dl (31.0-35.0); Mean Corpuscular Hemoglobin 27.7 pg (27.0-33.0); Mean Corpuscular Volume 85.2 fL (80.0-98.0); NRBC Abs Auto 0.000 X10*3/uL (0.0-0.012); NRBC Pct Auto 0.0 /100WBC (0.0-0.2); Platelet Count 485 X10*3/uL (160-400); Red Blood Count 4.73 X10*6/uL (4.20-5.50); White Blood Count 11.2 X10*3/uL (4.8-10.8)
[2025-09-21 18:03] LABS: Appearance Urine Clear; Glucose Urine UA Negative (Negative); PH 6.0 (5.0-9.0); Specific Gravity - Urine 1.020 (1.005-1.025)
[2025-09-21 18:31] LABS: Alanine Aminotransferase 21 U/L (0-31); Albumin Level 4.4 g/dL (3.5-5.0); Alkaline Phosphatase 70 U/L (39-117); Anion Gap 12 (12-20); Aspartate Amino Transferase 28 U/L (5-31); Blood Urea Nitrogen 7 mg/dL (9-16); Calcium 9.3 mg/dL (8.4-10.2); Carbon Dioxide 26 mmol/L (22-29); Chloride 103 mmol/L (96-108); Estimated Glomerular Filt Rate > 60; Ferritin 128 ng/mL (10-122); Iron 45 mcg/dL (30-160); Percent Iron Saturation 17 % (15-50); Potassium 3.8 mmol/L (3.3-5.1); Sodium 137 mmol/L (135-145); Total Iron Binding Capacity 261 mcg/dL (228-428); Total Protein 7.7 g/dL (6.5-8.0); Unsaturated Iron Binding 216 ug/dL
[2025-09-21 18:48] LABS: Folate 6.2 ng/mL (> or = 4.0); Vitamin B12 340 pg/mL (200-900)
[2025-09-22 01:12] LABS: CT PCR Urine NOT DETECTED (Not Detect.); NG PCR Urine NOT DETECTED (Not Detect.)
[2025-09-22 04:08] LABS: HBS Num1 34.00 mIU/mL (0-7.99); ~Hepatitis B Surface Antibody REACTIVE (Nonreactive)
[2025-09-22 10:04] LABS: Rubeola IgG (Measles) >300.00 AU/mL
== END 2025-09-21 14:45 | disposition home or self-care (01) ==
LOC: HO.WFDLDS 14:44
PROVIDERS: Physician Assistant Medical; PCP Nurse Practitioner Family; Visit Provider Nurse Practitioner Family
DX: Z00.00 Encounter for general adult medical examination without abnormal findings (principal); Z01.84 Encounter for antibody response examination; Z11.1 Encounter for screening for respiratory tuberculosis; Z23 Encounter for immunization; R53.83 Other fatigue; G47.9 Sleep disorder, unspecified; R79.89 Other specified abnormal findings of blood chemistry; E66.01 Morbid (severe) obesity due to excess calories; G47.19 Other hypersomnia; R06.83 Snoring; R30.0 Dysuria; G47.10 Hypersomnia, unspecified; F41.1 Generalized anxiety disorder; F33.1 Major depressive disorder, recurrent, moderate; E78.2 Mixed hyperlipidemia; N20.0 Calculus of kidney; G44.221 Chronic tension-type headache, intractable; G40.909 Epilepsy, unspecified, not intractable, without status epilepticus; J45.909 Unspecified asthma, uncomplicated; Z68.44 Body mass index [BMI] 60.0-69.9, adult; Z79.899 Other long term (current) drug therapy; Z92.89 Personal history of other medical treatment; Z86.69 Personal history of other diseases of the nervous system and sense organs
CPT/HCPCS: 36415; 80053; 81003; 82306; 82607; 82728; 82746; 83036; 83540; 83921; 84443; 85027; 86706; 86735; 86762; 86765; 86787; 87491; 87591; 90471; 90656; 96127; 99212; 99395

== ENCOUNTER 2025-10-02 14:52 | Outpatient (AMB) | payer OTHER, SELFPAY ==
--- NOTE | 2025-10-02 14:52 | A.OFFVIS_ITS ---
Intake Visit Reasons: US results Intake Note: Patient present for follow up- nephrolithiasis/ultrasound results Urology medication: none Blood thinners: none Imaging: Renal US 08/15/25 Telecom Assistant Required: No Accompanied by: Self / Same As Patient Allergies No Known Allergies Allergy (Verified 10/02/25 16:42) Medication List - Last Reconciled 10/02/25 by LINDA Villavicencio- albuterol sulfate 90 mcg/actuation (Ventolin HFA) 2 puffs inhalation Q4-6H PRN cholecalciferol (vitamin D3) 125 mcg PO DAILY topiramate 25 mg PO ONCE 3 months MDD 25mg capsule HPI Comments Details: Arleth is a very pleasant 25-year-old female patient of Dr. Bellamy. She has a past medical history of hyper insomnia, snoring, nephrolithiasis, and epilepsy. She presents to the office today for follow-up of her nephrolithiasis. In discussion with the patient today she reports to be doing and feeling well. Recent renal imaging results reviewed with the patient today 09/02 bilateral kidneys are normal in size, contour, and echogenicity. No hydronephrosis, renal calculi, or lesions noted bilaterally. She does report having followed up with urgent care for UTI like symptoms multiple times. In review of patient's chart it appears urine cultures are as follows: 03/29 group B, 05/29 no growth, 08/01 > 100,000 cfu/ml Mixed bacterial aby characteristic of urogenital contamination, 04/02 no growth We did discuss potential causes of UTI like symptoms. She currently denies any bothersome urinary issues. We did discussed calling office with any UTI like symptoms for further assessment evaluation and or seeking medical treatment. In office urinalysis results reviewed with the patient today. She denies urinary urgency, urinary frequency, incontinence, nocturia, hematuria, dysuria, foul smelling urine, changes to urinary stream, flank pain, fever, and or chills. She is happy with her current voiding parameters. She does report she is sexually active and does not feel UTI like symptoms initiate after sexual activity. She also reports no issues with her bowels. We discussed importance of adequate hydration relation to nephrolithiasis as well as overall health and well-being. All questions were answered. She otherwise offers no other issues or concerns at this time. PREVIOUS OFFICE NOTE: Nephrolithiasis Imaging - 05/29 CT Scan - left proximal ureteric stone 3 mm - 08/30 Renal US - normal Had been encouraged to increase fluids PFSH Medical History H/O tonic-clonic seizures Hypersomnia Snoring Nephrolithiasis Otitis media, right Encounter to establish care Epilepsy Surgical History History of appendectomy Family History Mother Cervical cancer FH: thyroid condition Father Diabetes High blood pressure Gum disease Other Mental health disorder Social History Housing: House Alcohol intake: current Alcohol intake frequency: holidays/special occasions only Patient Tobacco Use Status: Never used Tobacco e-Cigarette/Vaping Use: Never Used Second Hand Smoke Exposure: No service: No Current occupational status: employed Current occupation: Food services, [employer] Cognitive needs: No Hearing needs: No Vision needs: No Review of Systems Const All systems reviewed & are unremarkable except as noted in HPI and below Physical Exam Const General: cooperative, healthy appearing, comfortable, no acute distress, well developed, alert and awake Nutritional Appearance: overweight Orientation/consciousness: patient oriented x3 Limitations: no limitations HEENT Head: Yes normal to inspection, Yes normocephalic and Yes atraumatic Ears: hearing grossly normal bilaterally Eyes General: appearance normal, both eyes and all related structures Neck Neck: Yes normal visual inspection and Yes trachea midline Chest Chest palpation & inspection: normal inspection of the chest Resp Effort & Inspection: normal respiratory effort and able to speak in complete sen tences Cardio Rate: regular rate GI Inspection: Yes normal to inspection General: Yes no CVA tenderness Back/Spine/Pelvis Back: no CVA tenderness Skin General skin exam: no rashes or lesions noted Neuro General: patient oriented x3 Extrem General: Yes normal to inspection Psych Appearance: grossly normal and well kempt Mental Status: mental status grossly normal Speech and movement: Normal speech and movement present and Clear speech present Affect: normal affect Attitude: cooperative Thought process: Normal thought process present Thought content: Normal thought content present Insight: Fair insight present (Psych) Judgement: Fair judgement present (Psych) Results AMB Urinalysis, Automated UA Leukoctes 0 Xiao/uL Last Edit by Trinidad Colon, [facility] on 10/02/25 15:00 UA Nitrite Negative Last Edit by Trinidad Colon, [facility] on 10/02/25 15:00 UA Urobilinogen 0.2 mg/dL Last Edit by Trinidad Colon, [facility] on 10/02/25 15:00 UA Protein 0 mg/dL Last Edit by Trinidad Colon, [facility] on 10/02/25 15:00 UA pH 6.0 Last Edit by Trinidad Colon, [facility] on 10/02/25 15:00 UA Blood 0 Sergio/uL Last Edit by Trinidad Colon, [facility] on 10/02/25 15:00 UA Specific [place] 1.015 Last Edit by Trinidad Colon, [facility] on 10/02/25 15:0 0 UA Ketone Negative Last Edit by Trinidad Colon, [facility] on 10/02/25 15:00 UA Bilirubin 0 mg/dL Last Edit by Trinidad Colon, [facility] on 10/02/25 15:00 UA Glucose 0 mg/dL Last Edit by Trinidad Colon, [facility] on 10/02/25 15:00 Results Reviewed Results Reviewed: Laboratory Last Values Urine pH (Auto) 6.0 10/02/25 14:59 Specific [place] (Auto) 1.015 10/02/25 14:59 Urine Protein (Auto) 0 mg/dL 10/02/25 14:59 Glucose (UA)(Auto) 0 mg/dL 10/02/25 14:59 Urine Ketones (Auto) Negative 10/02/25 14:59 Urine Blood (Auto) 0 Sergio/uL 10/02/25 14:59 Urine Nitrite (Auto) Negative 10/02/25 14:59 Urine Bilirubin (Auto) 0 mg/dL 10/02/25 14:59 Urine Urobilinogen (Auto) 0.2 mg/dL 10/02/25 14:59 Leukocyte Esterase (Auto) 0 Xiao/uL 10/02/25 14:59 Date of Service: 08/15/25 Procedure(s): US renal BI EXAMINATION: US RETROPERITONEAL LIMITED (RENAL ONLY) CLINICAL INFORMATION: Kidney stone. COMPARISON: Previous renal and bladder ultrasound most recent December [address] of the abdomen and pelvis July 2022 TECHNIQUE: Real-time imaging of the kidneys. FINDINGS: RIGHT KIDNEY: 10 x 5 x 5 cm (SAG x AP x TRV). The kidney is normal in size, contour, and echogenicity. Renal cortical thickness is normal. No calculi or focal parenchymal lesions. No hydronephrosis. LEFT KIDNEY: 12 x 5.3 x 4.5 cm (SAG x AP x TRV). The kidney is normal in size, contour, and echogenicity. Renal cortical thickness is normal. No calculi or focal parenchymal lesions. No hydronephrosis. IMPRESSION: No stone seen by ultrasound. No hydronephrosis. Assessment & Plan Assessment & Plan (1) Nephrolithiasis: Code(s): N20.0 - Calculus of kidney Category: Medical (2) Recurrent urinary tract infection: Code(s): N39.0 - Urinary tract infection, site not specified Category: Medical Plan In office urinalysis results reviewed the patient today; as noted above. Recent renal imaging results reviewed with the patient today; as noted above. Patient currently denies any bothersome urinary issues or concerns. She reports be happy with current voiding parameters. We discussed at length importance of adequate hydration relation to nephrolithiasis as well as overall health and well-being. Discussed UTI prevention with D mannose supplement, vitamin-C, increasing fluid intake, behavioral therapy with timed voiding, perineal hygiene and postcoital voiding, and management of constipation with stool softeners and increased fiber intake. We discussed adding 1 oz of lemon juice to water daily. We did discuss urinary tract infection verses UTI like symptoms We discussed calling office and or seeking medical treatment with any lower urinary tract symptoms Follow-up in 3 months with [facility]; or sooner with any issues, concerns, and or questions. Patient Instructions: The patient had an opportunity to ask questions regarding the treatment plan. All questions were answered. Physical exam, labs, and imaging were discussed and reviewed in detail. As well as risks, benefits, and discussion of treatment choices. No major barriers to understanding were identified. The patient expressed understanding and agreement with the above treatment plan. The patient was made aware they should contact our office by phone for worsening of their current condition, the appearance of new symptoms, or with any questions or concerns. Compliance is encouraged with any medications and follow up testing that is ordered. It is a privilege to be allowed the opportunity to participate in? your urological care.? Again, if you have any questions or concerns If you have any questions or concerns please do not hesitate to contact me. The office is [phone]. This note is constructed using voice recognition software. While every effort has been made to ensure accuracy jewel bearing broacher errors may have been included. Yours sincerely, MIC Villavicencio Coding Level of Care Code Est Pt Level 3 (02484) Diagnoses Nephrolithiasis N20.0 Recurrent urinary tract infection N39.0
== END 2025-10-02 15:28 | disposition home or self-care (01) ==
LOC: HO.HUSH 14:53
PROVIDERS: PCP Nurse Practitioner Family; Visit Provider Nurse Practitioner Family
DX: N20.0 Calculus of kidney (principal); N39.0 Urinary tract infection, site not specified
CPT/HCPCS: 99213

== ENCOUNTER → 2025-10-02 14:52 | Outpatient (BNVA) | payer OTHER, SELFPAY | PROVIDERS: PCP Nurse Practitioner Family; Visit Provider Nurse Practitioner Family | DX: N20.0 Calculus of kidney (principal); N39.0 Urinary tract infection, site not specified | CPT/HCPCS: 99212 ==